=== PATIENT | male | born 1935 | race Caucasian/White ===

== ENCOUNTER → 2016-06-21 | Outpatient (REF) | payer MEDICARE, BC | LOC: M LAB REF 10:12 | PROVIDERS: ATTEND Urology | DX: Z12.5 Encounter for screening for malignant neoplasm of prostate (principal) ==

== ENCOUNTER → 2016-08-16 | Outpatient (REF) | payer MEDICARE, BC ==
[2016-08-16 09:50] LABS: ALBUMIN 3.7 GM/DL (3.2-5.2); ALBUMIN/GLOBULIN RATIO 1.09 (1.00-1.93); ALKALINE PHOSPHATASE 76 U/L (45-117); ALT/SGPT 24 U/L (12-78); ANION GAP 8 MEQ/L (8-16); AST/SGOT 21 U/L (15-37); BILIRUBIN,TOTAL 0.5 MG/DL (0.2-1.0); BLOOD UREA NITROGEN 15 MG/DL (7-18); CALCIUM LEVEL 8.7 MG/DL (8.8-10.2); CARBON DIOXIDE LEVEL 29 MEQ/L (21-32); CHLORIDE LEVEL 104 MEQ/L (98-107); CHOLESTEROL LEVEL 140 MG/DL (<200); CREATININE FOR GFR 1.21 MG/DL (0.70-1.30); FREE T4 1.33 NG/DL (0.76-1.46); GLOMERULAR FILTRATION RATE > 60.0 (>35); GLUCOSE, FASTING 115 MG/DL (83-110); POTASSIUM SERUM 4.5 MEQ/L (3.5-5.1); SODIUM LEVEL 141 MEQ/L (136-145); TOTAL PROTEIN 7.1 GM/DL (6.4-8.2); TRIGLYCERIDES LEVEL 76 MG/DL (<150)
== END ==
LOC: M SFHCCLAY 09:15
PROVIDERS: ATTEND Family Medicine
DX: E78.00 Pure hypercholesterolemia, unspecified (principal); I25.10 Atherosclerotic heart disease of native coronary artery without angina pectoris; E04.9 Nontoxic goiter, unspecified

== ENCOUNTER 2016-09-13 13:33 | Outpatient (RCR) | payer SELFPAY | END 2016-10-12 | LOC: EDSEX → EDBD → UNMERGE 13:33 → M CR 13:33 → MERGE 13:33 | PROVIDERS: ATTEND Family Medicine | DX: Z51.89 Encounter for other specified aftercare (principal); Z45.82 Encounter for adjustment or removal of myringotomy device (stent) (tube) ==

== ENCOUNTER → 2016-12-24 | Outpatient (REF) | payer MEDICARE, BC | LOC: M SFHCCLAY 09:00 | PROVIDERS: ATTEND Family Medicine | DX: R97.20 Elevated prostate specific antigen [PSA] (principal) | CPT/HCPCS: 36415; 84153; G0463 ==

== ENCOUNTER → 2017-02-28 | Outpatient (REF) | payer MEDICARE, BC | LOC: M LAB REF 09:55 | PROVIDERS: ATTEND Urology | DX: R97.20 Elevated prostate specific antigen [PSA] (principal) ==

== ENCOUNTER 2017-08-15 12:31 | Outpatient (RCR) | payer SELFPAY | END 2017-09-12 | LOC: M CR 12:31 | DX: Z51.89 Encounter for other specified aftercare (principal); Z98.61 Coronary angioplasty status ==

== ENCOUNTER → 2017-08-16 | Outpatient (REF) | payer MEDICARE, BC ==
[2017-08-16 12:50] LABS: ALBUMIN 3.7 GM/DL (3.2-5.2); ALBUMIN/GLOBULIN RATIO 1.12 (1.00-1.93); ALKALINE PHOSPHATASE 75 U/L (45-117); ALT/SGPT 22 U/L (12-78); ANION GAP 4 MEQ/L (8-16); AST/SGOT 18 U/L (7-37); BILIRUBIN,TOTAL 0.4 MG/DL (0.2-1.0); BLOOD UREA NITROGEN 16 MG/DL (7-18); CALCIUM LEVEL 8.8 MG/DL (8.8-10.2); CARBON DIOXIDE LEVEL 31 MEQ/L (21-32); CHLORIDE LEVEL 105 MEQ/L (98-107); CHOLESTEROL LEVEL 125 MG/DL (<200); CREATININE FOR GFR 1.19 MG/DL (0.70-1.30); FREE T4 1.28 NG/DL (0.76-1.46); GLOMERULAR FILTRATION RATE > 60.0 (>35); GLUCOSE, FASTING 174 MG/DL (70-100); HDL CHOLESTEROL 50 MG/DL (>40); LDL CHOLESTEROL 53.8 MG/DL (<100); NON-HDL-C 75 MG/DL; POTASSIUM SERUM 4.6 MEQ/L (3.5-5.1); SODIUM LEVEL 140 MEQ/L (136-145); TRIGLYCERIDES LEVEL 106 MG/DL (<150)
== END ==
LOC: M SFHCCLAY 09:34
DX: I25.10 Atherosclerotic heart disease of native coronary artery without angina pectoris (principal); E78.00 Pure hypercholesterolemia, unspecified; E04.9 Nontoxic goiter, unspecified
CPT/HCPCS: 84443

== ENCOUNTER → 2017-09-16 | Outpatient (REF) | payer MEDICARE, BC ==
[2017-09-16 18:28] LABS: PROSTATIC SPECIFIC AG MONITOR 4.06 NG/ML (< 4.0)
== END ==
LOC: M LABDRAWC 16:52
DX: R97.20 Elevated prostate specific antigen [PSA] (principal)
CPT/HCPCS: 84153

== ENCOUNTER → 2018-07-23 | Outpatient (REF) | payer MEDICARE, BC ==
[2018-07-23 12:15] LABS: BILIRUBIN,TOTAL 0.6 MG/DL (0.2-1.0); CALCIUM LEVEL 8.7 MG/DL (8.8-10.2); CHOLESTEROL RISK RATIO 2.339 (<5); CREATININE FOR GFR 1.25 MG/DL (0.70-1.30); FREE T4 1.32 NG/DL (0.76-1.46); GLOMERULAR FILTRATION RATE 58.7 (>35); POTASSIUM SERUM 4.4 MEQ/L (3.5-5.1); PROSTATIC SPECIFIC AG MONITOR 5.37 NG/ML (< 4.00); THYROID STIMULATING HORMONE 0.503 uIU/ML (0.358-3.740); TOTAL PROTEIN 7.4 GM/DL (6.4-8.2)
== END ==
LOC: M SFHCCLAY 08:45
PROVIDERS: ATTEND Family Medicine
DX: I25.10 Atherosclerotic heart disease of native coronary artery without angina pectoris (principal); C61 Malignant neoplasm of prostate; E78.00 Pure hypercholesterolemia, unspecified; E04.9 Nontoxic goiter, unspecified

== ENCOUNTER 2018-10-02 12:35 | Outpatient (RCR) | payer SELFPAY | END 2018-10-12 | LOC: M CR 12:35 | PROVIDERS: ATTEND Family Medicine | DX: Z98.61 Coronary angioplasty status (principal) ==

== ENCOUNTER → 2018-11-15 | Outpatient (CLI) | payer MEDICARE, BC ==
--- NOTE | 2018-11-27 13:08 | REP ---
Clinical: Sprain. Technique: AP, lateral, bilateral oblique views of the left first digit. Findings: Significant osteoarthritic degenerative changes are noted from the first carpometacarpal joint through the interphalangeal joint. No acute fracture or dislocation. No subcutaneous emphysema or radiodense foreign body. Impression: Significant osteoarthritic degenerative changes. Electronically Signed by Ashwin Eddy MD 11/15/2018 11:52 A
--- NOTE | 2018-11-27 13:08 | REP ---
Clinical: Trauma. Technique: AP, lateral, bilateral oblique views left hand . Findings: Arthritic degenerative changes are appreciated. No acute fracture or dislocation. No subcutaneous emphysema. No foreign body. Impression: Moderate to advanced diffuse arthritic changes primarily involving the wrist, first digit and first/second carpometacarpal joints. Electronically Signed by Ashwin Eddy MD 11/15/2018 11:51 A
== END ==
LOC: M WUC 11:35
PROVIDERS: ATTEND Nurse Practitioner Family
DX: M19.042 Primary osteoarthritis, left hand (principal); M19.032 Primary osteoarthritis, left wrist

== ENCOUNTER → 2018-11-18 | Outpatient (REF) | payer MEDICARE, BC | LOC: M LAB REF 16:17 | PROVIDERS: ATTEND Urology | DX: C61 Malignant neoplasm of prostate (principal); R97.20 Elevated prostate specific antigen [PSA] ==

== ENCOUNTER → 2019-01-08 | Outpatient (CLI) | payer MEDICARE, BC ==
[~2019-01-08] MED LIST: ASPI81TA85 PO; ATOR1TAB19 PO; COZA50TA PO; FINA5TAB2 PO; FLOM0.4C39 PO; LEVO75TA4 PO; OMEP-218 PO
--- NOTE | 2019-01-10 10:30 | RADONC ---
RADIATION ONCOLOGY CONSULTATION NOTE DATE OF SERVICE: 01/08/2019 CHART NUMBER: [id number] DIAGNOSIS: Prostate cancer. STAGE: Stage II B, [id number], [place] score 7 (3+4), grade group II, PSA 5.37. ECOG PERFORMANCE STATUS: 0. CONSULTATION NOTE: Mr. Flowers is a very pleasant 83-year-old white male with the diagnosis of a stage II B, [id number], Keisha score 7 (3+4), grade group II, PSA at 5.37 who is presenting to us today status post biopsy for consideration of definitive external beam radiation therapy with IMRT / IGRT. HISTORY OF PRESENT ILLNESS: The patient was in his usual state of health and apparently he was found on biopsy in January 2017 to have one small spot positive for a low grade prostatic adenocarcinoma. A PSA was done on 07/23/2018 and was found to be 5.37. Repeat needle biopsy done 12/03/2018 revealed multiple sites of Keisha score 7 (3+4) adenocarcinoma of the prostate involving both the left and the right sides. Of note, his PSA had gone up from 4 to 5.37 over a period of approximately one half years. He has initiated hormonal therapy and is now presenting for discussion of definitive external beam radiation therapy. PAST MEDICAL HISTORY: The patient's past medical history is positive for hypertension and a partial thyroidectomy in the early 1970s. He has had a heart stents placed. He has a history of hyperlipidemia and hypercholesterolemia. The patient has had cataract surgery in the past. ALLERGIES: The patient has NO KNOWN DRUG ALLERGIES. SOCIAL HISTORY: The patient does not smoke cigarettes nor abuse alcohol. FAMILY HISTORY: The patient's family history is positive for a mother with breast cancer. REVIEW OF SYSTEMS: The patient's review of systems is positive for some hearing loss but is otherwise noncontributory. Denies nausea, vomiting, fevers, chills, night sweats, diplopia, headaches, anxiety or depression, anorexia, weight loss, visual disturbances, chest pain, urinary or bowel difficulties, bone pain, or neurological problems. PHYSICAL EXAMINATION: The patient is a well-developed, well-nourished male in no acute distress. HEENT exam is normocephalic, atraumatic. Extraocular movements are intact. There is no palpable cervical, supraclavicular, infraclavicular, axillary, or inguinal lymphadenopathy present. Lungs are clear to auscultation and percussion. Heart has a regular rate and rhythm. Abdomen is benign with no hepatosplenomegaly, masses, or tenderness. Rectal examination reveals a normal anal sphincter tone. His prostate is smooth with no evidence of nodularity. Skeletal examination reveals no tenderness to pressure or percussion of the bony skeleton. Extremities reveal no clubbing, cyanosis, or edema. Neurologic exam is grossly intact, as is the remainder of the physical examination. MEDICAL NECESSITY: IMRT/IGRT is clinically indicated for the highly conformal dose planning required. The target volume is in close proximity to critical structures, such as the rectum, bladder, small bowel, and femoral heads. The volume of interest must be covered with narrow margins to adequately protect immediately adjacent structures. The plan requires interpretation of complex testing such as CT localization. As noted above, special planning (IMRT) and localizing (IGRT) is required and essential to maximally protect sensitive normal tissue structures which cannot be accomplished using conventional 3-dimensional planning. ASSESSMENT: I had a lengthy discussion with this patient to his . I do believe he is a candidate for external beam radiation therapy and I have so informed him. I have discussed with the patient in detail the potential benefits as well as possible acute and chronic sequelae of external beam radiation therapy. We discussed logistics of treatment planning, simulation, subsequent fractionated daily radiation treatments. We also discussed the need for placement of fiducial markers. In addition, I have discussed with the patient alternative treatments such as surgery. We discussed the benefits and drawbacks of each of the treatment modalities. Considering the patient's advanced age 83, we did discuss the possibilities of hormonal therapy alone and continued observation. This may hold him in check for a significant period of time. He is 83 years old. Considering the progress this tumor is made in just 2 years, I made clear that hormonal treatment is not definitive treatment. The patient has decided to undergo definitive external beam radiation therapy, and I am therefore referring him for placement of his fiducial markers. Radiation simulation and treatment planning will begin subsequent to that. Once again, we reviewed the possibilities of hormonal therapy alone versus radiation therapy versus surgery. Thank you for allowing us to participate in the care of this very pleasant gentleman. If I could be of any further assistance or provide any further information, please free to contact me at any time. As always, warm regards, Zoran Fatima MD cc: MD Ronny Latif MD
== END ==
LOC: M ONCR 13:46
PROVIDERS: ATTEND Radiology Radiation Oncology
DX: C61 Malignant neoplasm of prostate (principal)

== ENCOUNTER → 2019-01-22 | Outpatient (REF) | payer MEDICARE, BC ==
[2019-01-22 16:37] LABS: BLOOD UREA NITROGEN 17 MG/DL (7-18); CALCIUM LEVEL 9.2 MG/DL (8.8-10.2); CARBON DIOXIDE LEVEL 32 MEQ/L (21-32); CHLORIDE LEVEL 104 MEQ/L (98-107); CREATININE FOR GFR 1.21 MG/DL (0.70-1.30); GLOMERULAR FILTRATION RATE > 60.0 (>35); GLUCOSE, FASTING 95 MG/DL (70-100); POTASSIUM SERUM 4.4 MEQ/L (3.5-5.1); SODIUM LEVEL 139 MEQ/L (136-145)
== END ==
LOC: M SFHCCLAY 10:37
PROVIDERS: ATTEND Family Medicine
DX: I10 Essential (primary) hypertension (principal)

== ENCOUNTER → 2019-01-26 | Outpatient (CLI) | payer MEDICARE, BC ==
[~2019-01-26] MED LIST changes: +ISOVUE-370 76% 100ML VIAL (Q9967) As Ordered ONE
--- NOTE | 2019-01-26 16:50 | REP ---
CT brain: 01/26/2019. Indication: Headache. Comparison: None. Technique: Axial images of the brain were obtained from skull base to vertex with and without IV contrast. 75 ml of IV Isovue 370 were administered. Findings: No areas of pathologic enhancement are present. There is no intracranial acute hemorrhage or infarction. There is no mass effect or hydrocephalous. Age-related volume loss is present. There is scattered areas of hypo-attenuation throughout the subcortical and periventricular white matter most consistent with sequelae of chronic microangiopathic ischemic disease. The visualized paranasal sinuses and mastoid air cells are clear. Impression: No acute intracranial process or areas of pathologic gadolinium enhancement. Age related volume loss and support chronic microangiopathic ischemic disease. Electronically Signed by Jovi Kitchen DO 01/26/2019 05:05 P
--- NOTE | 2019-01-26 18:43 | REP ---
REASON FOR EXAM: Headaches. COMPARISON: None. There is echogenic material seen along the carotid arterial shay. Some areas are somewhat patchy and cast acoustic shadows consistent with calcific deposition. RIGHT LEFT CCA systolic 99.4 cm/s 97.3 cm/s CCA diastolic 9.32 cm/s 16.2 cm/s ICA systolic 74.1 cm/s 86.0 cm/s ICA diastolic 16.1 cm/s 22.7 cm/s ICA to CCA ratio 1.05 0.94 Spectral wave form analysis shows no significant spectral wave broadening. There is antegrade flow seen in both vertebral arteries. IMPRESSION: Both calcified and non-calcified plaque formatio causes less than 50% stenosis of the internal carotid artery bilaterally. This is according the NASCET consensus criteria. Electronically Signed by Jared Oh DO 01/27/2019 02:14 P
== END ==
LOC: M RAD 13:46
PROVIDERS: ATTEND Family Medicine
DX: R51 Headache (principal)
CPT/HCPCS: 70470; 93880; Q9967

== ENCOUNTER 2019-02-09 10:13 | Outpatient (RCR) | payer MEDICARE, BC ==
[~2019-02-09 10:13] MED LIST changes: -ISOVUE-370 76% 100ML VIAL (Q9967) As Ordered ONE
[2019-02-09 11:06] LABS: HEMATOCRIT 46.1 % (42.0-52.0); HEMOGLOBIN 15.1 g/dl (13.5-17.5); MEAN CORPUSCULAR HEMOGLOBIN 32.2 pg (27.0-33.0); MEAN CORPUSCULAR HGB CONC 32.8 g/dl (32.0-36.5); MEAN CORPUSCULAR VOLUME 98.3 fl (80.0-96.0); NEUTROPHILS % 56.7 % (36.0-66.0); RED BLOOD COUNT 4.69 10^6/uL (4.30-6.10); WHITE BLOOD COUNT 5.3 10^3/uL (4.0-10.0)
--- NOTE | 2019-02-09 12:02 | RADONC ---
RADIATION ONCOLOGY SIMULATION NOTE DATE: 02/09/2019 CHART NUMBER: [id number] SIMULATION NOTE: Mr. Flowers was taken to the CT scan for CT simulation of his prostate field. CT was accomplished without difficulty or discomfort. Radiation treatment planning is underway and radiation treatments will begin subsequently. An immobilization device was created and will be used throughout the course of treatment. It was created without difficulty or discomfort. I was physically present throughout the course of CT simulation.
== END 2019-02-12 ==
LOC: M ONCR 10:13
PROVIDERS: ATTEND Radiology Radiation Oncology
DX: C61 Malignant neoplasm of prostate (principal)

== ENCOUNTER 2019-03-11 08:54 | Outpatient (RCR) | payer MEDICARE, BC ==
--- NOTE | 2019-02-23 10:12 | RADONC ---
RADIATION ONCOLOGY PROGRESS NOTE DATE: 02/23/2019 CHART NUMBER: [id number] Mr. Flowers is presently at a dose of 1080 cGy to his prostate and is tolerating treatments quite well at this point with no complaints related to his radiation therapy. He is having no urinary or bowel difficulties and no bone pain. The patient's review of systems is noncontributory. He denies nausea, vomiting, fevers, chills, night sweats, diplopia, headaches, anxiety or depression, anorexia, weight loss, visual disturbances, chest pain, urinary or bowel difficulties, bone pain, or neurological problems. PHYSICAL EXAMINATION: The patient's skin is in good condition with no evidence of radiation change present. There is no moist or dry desquamation. The remainder of his physical exam remains unchanged. Mr. Flowers is tolerating treatments quite well and radiation will continue as scheduled.
--- NOTE | 2019-03-03 09:40 | RADONC ---
RADIATION ONCOLOGY PROGRESS NOTE DATE: 03/02/2019 CHART NUMBER: [id number] PROGRESS NOTE: Mr. Farrell is presently at a dose of 1980 cGy to his prostate and is tolerating treatments quite well at this point with no significant difficulties related to his radiation therapy. REVIEW OF SYSTEMS: He continues to have some chronic constipation and harder bowel movements. Other than that the patient has no complaints at this time. These are longstanding in nature. The remainder of his review of systems is noncontributory. Denies nausea, vomiting, fevers, chills, night sweats, diplopia, headaches, anxiety or depression, anorexia, weight loss, visual disturbances, chest pain, urinary or bowel difficulties, bone pain, or neurological problems. PHYSICAL EXAMINATION: The patient's skin is in good condition with no evidence of radiation change present. There is no moist or dry desquamation. The remainder of his physical exam remains unchanged. Mr. Flowers is tolerating treatments quite well and radiation will continue as scheduled.
--- NOTE | 2019-03-11 09:11 | RADONC ---
RADIATION ONCOLOGY PROGRESS NOTE DATE OF SERVICE: 03/09/2019 CHART NUMBER: [id number] Mr. Flowers is presently a dose of 2880 cGy to his prostate and is tolerating treatments quite well at this point with no complaints related to his radiation therapy. He is having no urinary or bowel difficulties and no bone pain. The patient's review of systems is noncontributory. Denies nausea, vomiting, fevers, chills, night sweats, diplopia, headaches, anxiety or depression, anorexia, weight loss, visual disturbances, chest pain, urinary or bowel difficulties, bone pain, or neurological problems. PHYSICAL EXAMINATION The patient's skin is in good condition with no evidence of moist or dry desquamation. The remainder of his physical exam remains unchanged. Mr. Flowers is tolerating treatments quite well and radiation will continue as scheduled.
== END 2019-03-14 ==
LOC: M ONCR 08:54
PROVIDERS: ATTEND Radiology Radiation Oncology
DX: C61 Malignant neoplasm of prostate (principal)

== ENCOUNTER → 2019-04-14 | Outpatient (RCR) | payer MEDICARE, BC ==
--- NOTE | 2019-03-17 10:31 | RADONC ---
RADIATION ONCOLOGY DATE OF SERVICE: 03/17/2019 CHART NUMBER: [id number] Mr. Flowers carries a diagnosis of prostate CA. So far he has received a dose of 3600 cGy in 28 fractions. He has no complaints. His nocturia is at 3-4 times. Denies dysuria, hematuria. No bowel problems. He is currently on Flomax. He tolerates treatment very well without any unusual side effects and treatment will continue as planned. MTDD
--- NOTE | 2019-03-23 13:14 | RADONC ---
RADIATION ONCOLOGY PROGRESS NOTE DATE: 03/23/2019 CHART NUMBER: [id number] Mr. Flowers is presently at a dose of 4320 cGy to his prostate and is tolerating treatments quite well at this point with no complaints related to his radiation therapy. He is having no urinary or bowel difficulties and no bone pain. The patient's review of systems is noncontributory. Denies nausea, vomiting, fevers, chills, night sweats, diplopia, headaches, anxiety or depression, anorexia, weight loss, visual disturbances, chest pain, urinary or bowel difficulties, bone pain, or neurological problems. PHYSICAL EXAMINATION The patient's skin is in good condition with no evidence of radiation change present. There is no moist or dry desquamation. The remainder of his physical exam remains unchanged. Mr. Flowers is tolerating treatments quite well and radiation will continue as scheduled.
--- NOTE | 2019-04-01 06:29 | RADONC ---
RADIATION ONCOLOGY PROGRESS NOTE DATE: 03/30/2019 CHART #: [id number] Mr. Flowers is presently at a dose of 5220 cGy to his prostate and seminal vesicles and is tolerating treatments quite well at this point with no complaints related to his radiation therapy. He is having no significant urinary or bowel difficulties other than some urinary frequency. REVIEW OF SYSTEMS: The patient's review of systems is noncontributory. Denies nausea, vomiting, fevers, chills, night sweats, diplopia, headaches, anxiety or depression, anorexia, weight loss, visual disturbances, chest pain, urinary or bowel difficulties, bone pain, or neurological problems. PHYSICAL EXAMINATION: The patient's skin is in good condition with no evidence of moist or dry desquamation. The remainder of his physical exam remains unchanged. Mr. Horan is tolerating treatments quite well and radiation will continue as scheduled.
--- NOTE | 2019-04-10 08:27 | RADONC ---
RADIATION ONCOLOGY PROGRESS NOTE DATE: 04/06/2019 CHART NUMBER: [id number] PROGRESS NOTE: Mr. Flowers with a diagnosis of adenocarcinoma of the prostate stage II B, T2c, N0, M0, is currently receiving local regional radiotherapy and his dose to date is 6120 cGy of an anticipated 7920 cGy. He is tolerating his therapy reasonably well and denies any nausea, vomiting, diarrhea, dysuria, hematuria or blood per rectum. His energy level is such that he is able to maintain most of his day-to-day activities without any alteration of his lifestyle. Skin irritation is denied. EXAMINATION FINDINGS: The skin within the irradiated volume shows neither erythema nor desquamation. Lymphatics: No palpable peripheral lymphadenopathy is appreciated. Lungs are clear. The remainder of the physical examination is unchanged. IMPRESSION: Tolerating therapy well. PLAN: Treatments to continue . MTDD
--- NOTE | 2019-04-13 13:24 | RADONC ---
RADIATION ONCOLOGY PROGRESS NOTE DATE: 04/13/2019 CHART NUMBER: [id number] Mr. Reymundo Flowers with a diagnosis of a malignant neoplasm of the prostate is currently receiving IMRT based local regional radiotherapy and he has achieved a dose of 6660 cGy of a proposed 7920 cGy. He is tolerating his radiotherapy reasonably well, denying any nausea, vomiting, diarrhea, dysuria, hematuria or blood per rectum. His energy level is such that he is able to maintain most of his day-to-day activities without any alteration of his lifestyle. Skin irritation is not a major issue for him. EXAMINATION FINDINGS: The skin within the irradiated volume shows neither erythema nor desquamation. Lymphatics: No palpable peripheral lymphadenopathy is appreciated. The remainder of the physical examination is unchanged. IMPRESSION: Tolerating therapy well. PLAN: Treatment is to continue.
== END ==
LOC: M ONCR 03-16 08:58
PROVIDERS: ATTEND Radiology Radiation Oncology
DX: C61 Malignant neoplasm of prostate (principal)

== ENCOUNTER 2019-04-23 08:56 | Outpatient (RCR) | payer MEDICARE, BC ==
--- NOTE | 2019-04-21 06:49 | RADONC ---
RADIATION ONCOLOGY PROGRESS NOTE DATE: 04/20/2019 CHART #: [id number] Mr. Flowers is presently at a dose of 7380 cGy to his prostate and is tolerating treatments quite well at this point with no significant difficulties related to his radiation therapy. He is having no urinary or bowel difficulties and no bone pain, except for urinary frequency. He reports he is urinating every hour. REVIEW OF SYSTEMS: The patient's review of systems is positive for urinary frequency, but is otherwise noncontributory. Denies nausea, vomiting, fevers, chills, night sweats, diplopia, headaches, anxiety or depression, anorexia, weight loss, visual disturbances, chest pain, urinary or bowel difficulties, bone pain, or neurological problems. PHYSICAL EXAMINATION: The patient's skin shows no evidence of moist or dry desquamation. The remainder of his physical exam remains unchanged. Mr. Flowers is tolerating treatments quite well and radiation will continue as scheduled.
--- NOTE | 2019-04-24 07:14 | RADONC ---
RADIATION ONCOLOGY TREATMENT SUMMARY DATE: 04/23/2019 CHART NUMBER: [id number] DIAGNOSIS: Prostate cancer. STAGE: IIB, [id number], Keisha score 7 (3-4), grade group 2, PSA 5.37. ECOG PERFORMANCE STATUS: 0 TREATMENT SUMMARY: Mr. Flowers is a very pleasant 83-year-old white male with the diagnosis of a stage IIB, [id number], Keisha score 7 (3-4), grade group 2, PSA 5.7 who presented to us for consideration of definitive external beam radiation therapy with IMRT/IGRT. We treated the patient to his prostate for a total dose of 7920 cGy delivered in 44 fractions of 180 cGy each over 65 elapsed days from 02/16/2019 through 04/23/2019. The patient's prostate was treated on a linear accelerator utilizing a 6 MV photon beam via IMRT/IGRT. We initially treated the prostate and seminal vesicles to a dose of 5400 cGy delivered in 30 fractions of 180 cGy each from 02/16/2019 through 03/31/2019. Following completion of 5400 cGy to the seminal vesicles and prostate, we delivered an additional 2520 cGy to the prostate itself from 04/01/2019 through 04/23/2019. This brought the prostate, once again, to a total dose of 7920 cGy. Mr. Flowers tolerated his treatments quite well and was able complete therapy as prescribed without interruption. I have scheduled the patient to see me again in 1 month for further followup. He will also continue to be followed by his other physicians as well. cc: MD Roland Latif MD Stephen Randall, MD
== END 2019-05-15 ==
LOC: M ONCR 08:56
PROVIDERS: ATTEND Radiology Radiation Oncology
DX: C61 Malignant neoplasm of prostate (principal)

== ENCOUNTER → 2019-05-20 | Outpatient (REF) | payer MEDICARE, BC ==
[2019-05-20 12:38] LABS: CREATININE FOR GFR 1.27 MG/DL (0.70-1.30); GLOMERULAR FILTRATION RATE 57.5 (>35); POTASSIUM SERUM 4.6 MEQ/L (3.5-5.1)
== END ==
LOC: M LABDRAWC 11:24
PROVIDERS: ATTEND Physician Assistant
DX: I10 Essential (primary) hypertension (principal)

== ENCOUNTER → 2019-05-20 | Outpatient (REF) | payer MEDICARE, BC | LOC: M LABDRAWC 11:23 | PROVIDERS: ATTEND Radiology Radiation Oncology | DX: C61 Malignant neoplasm of prostate (principal); I10 Essential (primary) hypertension ==

== ENCOUNTER 2019-05-27 14:00 | Outpatient (RCR) | payer SELFPAY | END 2019-06-13 | LOC: M CR 14:00 | PROVIDERS: ATTEND Family Medicine | DX: I25.10 Atherosclerotic heart disease of native coronary artery without angina pectoris (principal) ==

== ENCOUNTER → 2019-05-27 | Outpatient (CLI) | payer MEDICARE, BC ==
--- NOTE | 2019-05-28 10:45 | RADONC ---
DATE OF SERVICE: 05/27/2019 CHART NUMBER: [id number] DIAGNOSIS: Prostate cancer. STAGE: IIB, [id number], Keisha score 7 (3 + 4). PSA was 5.37. ECOG PERFORMANCE STATUS: 0. Mr. Flowers is a very pleasant 83-year-old gentleman who carries the diagnosis of stage IIB, [id number], [place] 7 (3 + 4), PSA 5.7 prostate cancer. He completed radiation therapy on April 23, 2019. INTERVAL HISTORY: He has no complaints. He had last PSA on May 20, 2019 was reported to be 1.16. REVIEW OF SYSTEMS: General/constitutional: He denies recent weight changes, fevers, or loss of appetite. Respiratory: He denies any cough. Cardiovascular: He denies palpitations, chest pain. Gastrointestinal: Denies nausea, vomiting, diarrhea, constipation, or rectal bleeding. Genitourinary: He complains of urinary frequency and nocturia three to four times. He is on Flomax. Musculoskeletal: He denies any bone pain, arthritis. PHYSICAL EXAMINATION: Patient is well developed and nourished and in not in apparent distress. HEENT: Normocephalic, atraumatic. There is no palpable lymphadenopathies in the neck/axilla bilaterally. LUNGS: Clear to auscultations. HEART: Regular rhythm and rate. ABDOMEN: Soft, nontender, nondistended without any palpable mass or organomegalies. SKELETAL EXAMINATION: There were no bony tenderness over the spine and rib cages. EXTREMITIES: No clubbing, cyanosis or edema. ASSESSMENT AND RECOMMENDATION: This 83-year-old gentleman carries the diagnosis of stage IIB prostate cancer [place] 7 (3 + 4) PSA 5.7. He completed external radiation therapy on April 23, 2019. Followup PSA on May 20, 2019 was 1.13. He was advised continuous followup care with physicians involved and he was also asked to return here in 3 months. He informed me his urologist is in [place], he wants to change urologist nearby. [facility] SYSTEM[facility]
== END ==
LOC: M ONCR 08:59
PROVIDERS: ATTEND Radiology Radiation Oncology
DX: C61 Malignant neoplasm of prostate (principal)

== ENCOUNTER 2019-06-18 14:32 | Outpatient (RCR) | payer SELFPAY | END 2019-07-14 | LOC: M CR 14:32 | PROVIDERS: ATTEND Family Medicine | DX: Z51.89 Encounter for other specified aftercare (principal); Z98.61 Coronary angioplasty status ==

== ENCOUNTER → 2019-08-17 | Outpatient (CLI) | payer MEDICARE, BC ==
[~2019-08-17] MED LIST changes: -ASPI81TA85 PO; +ASPI81TA86 PO
--- NOTE | 2019-08-17 15:51 | REP ---
LUMBOSACRAL SPINE, AP AND LATERAL: Three AP and lateral views of the lumbosacral spine are performed. There is no compression fracture or malalignment with normal lumbar lordosis. There partial sacralization of L5 with hypoplastic 12th ribs noted. There is mild to moderate diffuse spurring. There is mild disc space narrowing and subchondral sclerosis at all levels. There is sclerosis and spurring at the posterior facet joints especially L3-4 and L4-5 and L5-S1. Posterior elements are intact. IMPRESSION: Partial sacralization of L5. Diffuse degenerative changes as above with no compression fracture. Electronically Signed by Zoran Jolly MD 08/17/2019 04:03 P
== END ==
LOC: M CLY 15:05
PROVIDERS: ATTEND Family Medicine
DX: M51.37 Other intervertebral disc degeneration, lumbosacral region (principal); M54.5 Low back pain
CPT/HCPCS: 72100; G0463

== ENCOUNTER → 2019-08-26 | Outpatient (CLI) | payer MEDICARE, BC ==
[~2019-08-26] MED LIST changes: +ASPI81TA85 PO; -ASPI81TA86 PO
--- NOTE | 2019-08-30 14:16 | RADONC ---
RADIATION ONCOLOGY FOLLOWUP NOTE DATE: 08/26/2019 CHART NUMBER: [id number] DIAGNOSIS: Prostate cancer. STAGE: II B, T2c, N0, M0, Eugene score 7 (3-4), grade group II, PSA 5.37. ECOG PERFORMANCE STATUS: 0 FOLLOWUP NOTE: Mr. Flowers is a very pleasant 83-year-old white male with the diagnosis of a stage II B, T2c, N0, M0, moderate to poorly differentiated Eugene score 7 (3-4) adenocarcinoma of the prostate with an initial PSA level of 5.37 who is presenting to us today for routine followup visit 4 months post completion of external beam radiation therapy. The patient presents today reporting that he is doing quite well with no complaints at this time related to his radiation therapy or disease. He has no significant urinary or bowel difficulties and no bone pain. REVIEW OF SYSTEMS: The patient's review of systems is noncontributory. Denies nausea, vomiting, fevers, chills, night sweats, diplopia, headaches, anxiety or depression, anorexia, weight loss, visual disturbances, chest pain, urinary or bowel difficulties, bone pain, or neurological problems. PHYSICAL EXAMINATION: Physical examination was deferred as per COVID-19 precautions. ASSESSMENT: The patient is clinically ELISEO at this time and will be seen by us again in 6 months for further followup. He will also continue to be followed by his other physicians as well. A PSA level was ordered for today. His previous PSA done on 05/20/2019 was 1.16. cc: MD Ronny Miller MD Stephen Randall, MD
== END ==
LOC: M ONCR 08:47
PROVIDERS: ATTEND Radiology Radiation Oncology
DX: C61 Malignant neoplasm of prostate (principal)

== ENCOUNTER → 2019-11-19 | Outpatient (REF) | payer MEDICARE, BC ==
[~2019-11-19] MED LIST changes: -ASPI81TA85 PO; +ASPI81TA86 PO
[2019-12-18 23:09] LABS: HEMOGLOBIN 14.2 g/dl (13.5-17.5); MEAN CORPUSCULAR HEMOGLOBIN 35.3 pg (27.0-33.0); MEAN CORPUSCULAR HGB CONC 34.6 g/dl (32.0-36.5); PLATELET COUNT, AUTOMATED 153 10^3/uL (150-450); RED BLOOD COUNT 4.02 10^6/uL (4.30-6.10); WHITE BLOOD COUNT 4.2 10^3/uL (4.0-10.0)
[2020-01-03 12:01] LABS: ALBUMIN 3.7 GM/DL (3.2-5.2); BILIRUBIN,TOTAL 0.5 MG/DL (0.2-1.0); CALCIUM LEVEL 9.2 MG/DL (8.8-10.2); CHOLESTEROL RISK RATIO 2.826 (<5); CREATININE FOR GFR 1.27 MG/DL (0.70-1.30); FREE T4 1.12 NG/DL (0.76-1.46); GLOMERULAR FILTRATION RATE 57.4 (>35); POTASSIUM SERUM 4.1 MEQ/L (3.5-5.1); PROSTATIC SPECIFIC AG MONITOR 0.21 NG/ML (< 4.00); THYROID STIMULATING HORMONE 0.672 uIU/ML (0.358-3.740); TOTAL PROTEIN 6.8 GM/DL (6.4-8.2)
== END ==
LOC: M SFHCCLAY 16:33
PROVIDERS: ATTEND Family Medicine
DX: I25.10 Atherosclerotic heart disease of native coronary artery without angina pectoris (principal); E78.00 Pure hypercholesterolemia, unspecified; E04.9 Nontoxic goiter, unspecified; C61 Malignant neoplasm of prostate
CPT/HCPCS: 36415; 80053; 80061; 84153; 84439; 84443; 85027; G0463

== ENCOUNTER 2020-02-03 13:33 | Emergency (ER) | payer MEDICARE, BC ==
[~2020-02-03] VITALS: Ht 180.3 cm; Wt 79.5 kg
[2020-02-03] MEDS ORDERED: NS 1,000 ML IV SCH (13:49)
[2020-02-03] MEDS ORDERED: ASPIRIN 81 MG CHEW TABLET PO ONE (14:00)
[2020-02-03] MEDS: NITROGLYCERIN 0.4 MG SUBL TABLET SL PRN ×3 (14:02→14:27)
[2020-02-03 14:03] LABS: BASO % 0.6 % (0.0-1.0); EOS # 0.1 10^3/uL (0.0-0.5); EOS % 1.8 % (0.0-3.0); HEMATOCRIT 44.5 % (42.0-52.0); HEMOGLOBIN 14.7 g/dl (13.5-17.5); LYMPH # 0.6 10^3/uL (1.5-5.0); LYMPH % 12.1 % (24.0-44.0); MEAN CORPUSCULAR VOLUME 96.9 fl (80.0-96.0); MONO # 0.5 10^3/uL (0.0-0.8); MONO % 9.6 % (0.0-5.0); NEUTROPHILS # 3.9 10^3/uL (1.5-8.5); NEUTROPHILS % 75.5 % (36.0-66.0); PLATELET COUNT, AUTOMATED 156 10^3/uL (150-450); RED BLOOD COUNT 4.59 10^6/uL (4.30-6.10); WHITE BLOOD COUNT 5.1 10^3/uL (4.0-10.0)
[2020-02-03 14:15] LABS: INR 0.93; PROTHROMBIN TIME 12.7 SECONDS (12.5-14.3)
--- NOTE | 2020-02-03 14:17 | REPVR ---
PROCEDURE INFORMATION: Exam: XR Chest, 1 View Exam date and time: 02/03/2020 1:53 PM Age: 84 years old Clinical indication: Chest pain TECHNIQUE: Imaging protocol: XR of the chest Views: 1 view. COMPARISON: CR Abdomen,Flat Upright,PA CHEST 04/23/2013 6:33 PM FINDINGS: Lungs: Unremarkable. No consolidation. Pleural space: Unremarkable. No pleural effusion. No pneumothorax. Heart/Mediastinum: Unremarkable. No cardiomegaly. Bones/joints: Unremarkable. IMPRESSION: No acute findings. Electronically signed by: Jacquelin Landeros On 02/03/2020 14:17:47 PM
[2020-02-03 14:27] VITALS: BP 102/56
[2020-02-03 14:36] LABS: ALBUMIN 4.1 GM/DL (3.2-5.2); ALT/SGPT 23 U/L (12-78); BILIRUBIN,DIRECT 0.2 MG/DL (0.0-0.2); BILIRUBIN,TOTAL 0.6 MG/DL (0.2-1.0); CK-MB VALUE MASS 2.1 NG/ML (<3.6); CPK CREATINE PHOSPHOKINASE 100 U/L (39-308); LIPASE 113 U/L (73-393); TOTAL PROTEIN 7.7 GM/DL (6.4-8.2); TROPONIN I < 0.02 NG/ML (< 0.10)
--- NOTE | 2020-02-03 16:35 | ECGEPIP ---
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
[2020-02-03 18:49] LABS: CK-MB VALUE MASS 1.8 NG/ML (<3.6); CPK CREATINE PHOSPHOKINASE 83 U/L (39-308); MB/CK RELATIVE INDEX 2.17 (< OR =4); TROPONIN I < 0.02 NG/ML (< 0.10)
[2020-02-03 19:30] VITALS: BP 148/77
--- NOTE | 2020-02-03 23:00 | ECGEPIP ---
[facility] - ED Test Date: 2020-02-03 Pat Name: CESAR PINEDA Department: Room: - Gender: Male Diet Kitchen Cook: ESPERANZA : 1935 Requested By: LE COX Order Number: [id number] Reading MD: Too Reveles Measurements Intervals [place] Rate: 73 P: 74 [place]: 215 QRS: 98 QRSD: 146 T: 30 QT: 400 QTc: 442 Interpretive Statements SINUS RHYTHM WITH SINUS ARRHYTHMIA WITH FIRST DEGREE AV BLOCK RIGHT BUNDLE BRANCH BLOCK Rate decreased from tracing done at 13:48 on the same date Electronically Signed on 02-03-2020 23:00:30 EDT by Too Reveles
== END 2020-02-03 20:00 | disposition home or self-care (01) ==
LOC: M ED 13:33
DX: R07.89 Other chest pain (principal); I44.0 Atrioventricular block, first degree; I45.10 Unspecified right bundle-branch block; R00.0 Tachycardia, unspecified; I11.9 Hypertensive heart disease without heart failure; E78.5 Hyperlipidemia, unspecified; Z95.5 Presence of coronary angioplasty implant and graft; Z79.82 Long term (current) use of aspirin; Z79.899 Other long term (current) drug therapy

== ENCOUNTER → 2020-02-26 | Outpatient (CLI) | payer MEDICARE, BC ==
--- NOTE | 2020-02-26 09:04 | REP ---
INDICATION: ABDOMINAL ANEURSYM. COMPARISON: Comparison aortic sonography November 02, 2011. Comparison is made with CT imaging from July 01, 2008. Both of these prior study showed a small saccular area of dilation in the mid aorta, 2.3 cm in greatest anteroposterior dimension in 2008 and 2.6 cm in greatest AP dimension in 2011 by ultrasound.. TECHNIQUE: Transabdominal retroperitoneal scanning. FINDINGS: Scanning through the retroperitoneum demonstrates that the abdominal aorta is normal in caliber at the level of the diaphragmatic hiatus measuring 2.1 x 1.7 cm in AP by transverse dimension respectively. The abdominal aorta is obscured at the level of the main renal artery origins. Mid aorta measures 2.6 cm AP x 2.3 cm right to left. A focal saccular area of aortic bulge is seen 2.0 x 1.6 by 1.0 cm along the anterior wall of the aorta. Inclusive of this, the anterior-dimension of the aorta is 2.6 cm.. The distal aorta tapers to 2.3 x 2.2 cm AP by transverse dimension. The right and left common iliac arteries are normal measuring 1.2 and 1.2 cm in AP dimension respectively. No aneurysm is seen. No periaortic disease is observed. IMPRESSION: Focal saccular bulging anterior wall of the abdominal aorta again noted unchanged from prior studies. This segment of the aorta measures 2.6 cm in greatest anterior to posterior dimension.. <Electronically signed by Navdeep Pollard > 02/26/20 0901
== END ==
LOC: M RAD 06:52
PROVIDERS: ATTEND Family Medicine
DX: I71.4 Abdominal aortic aneurysm, without rupture (principal)

== ENCOUNTER → 2020-03-14 | Outpatient (CLI) | payer MEDICARE, BC | LOC: M LAB 09:36 | PROVIDERS: ATTEND Urology | DX: C61 Malignant neoplasm of prostate (principal) ==

== ENCOUNTER → 2020-07-21 | Outpatient (REF) | payer MEDICARE, BC ==
[2020-07-22 11:09] LABS: BASO % 0.6 % (0.0-1.0); EOS # 0.1 10^3/uL (0.0-0.5); EOS % 2.4 % (0.0-3.0); HEMATOCRIT 39.9 % (42.0-52.0); HEMOGLOBIN 14.3 g/dl (13.5-17.5); LYMPH # 0.8 10^3/uL (1.5-5.0); LYMPH % 15.6 % (24.0-44.0); MEAN CORPUSCULAR HGB CONC 35.8 g/dl (32.0-36.5); MEAN CORPUSCULAR VOLUME 100.5 fl (80.0-96.0); MONO # 0.7 10^3/uL (0.0-0.8); MONO % 14.2 % (2.0-8.0); NEUTROPHILS # 3.4 10^3/uL (1.5-8.5); PLATELET COUNT, AUTOMATED 155 10^3/uL (150-450); RED BLOOD COUNT 3.97 10^6/uL (4.30-6.10)
[2020-07-22 11:46] LABS: BLOOD UREA NITROGEN 17 MG/DL (7-18); CALCIUM LEVEL 9.7 MG/DL (8.8-10.2); CARBON DIOXIDE LEVEL 32 MEQ/L (21-32); CHLORIDE LEVEL 103 MEQ/L (98-107); CPK CREATINE PHOSPHOKINASE 107 U/L (39-308); CREATININE FOR GFR 1.27 MG/DL (0.70-1.30); GLOMERULAR FILTRATION RATE 57.4 (>35); GLUCOSE, FASTING 100 MG/DL (70-100); SODIUM LEVEL 138 MEQ/L (136-145); TROPONIN I < 0.02 NG/ML (< 0.10)
[2020-07-22 11:49] LABS: FREE T4 1.19 NG/DL (0.76-1.46); THYROID STIMULATING HORMONE 0.467 uIU/ML (0.358-3.740)
== END ==
LOC: M SFHCCLAY 13:05
PROVIDERS: ATTEND Family Medicine
DX: R07.9 Chest pain, unspecified (principal); E03.9 Hypothyroidism, unspecified
CPT/HCPCS: 80048; 82550; 84439; 84443; 84484; 85025; 93005; G0463

== ENCOUNTER → 2020-09-13 | Outpatient (REF) | payer MEDICARE, BC | LOC: M SFHCCLAY 14:05 | PROVIDERS: ATTEND Urology | DX: C61 Malignant neoplasm of prostate (principal) ==

== ENCOUNTER → 2020-12-07 | Outpatient (CLI) | payer MEDICARE, BC ==
[2020-12-07 11:16] LABS: BLOOD UREA NITROGEN 15 MG/DL (7-18); GLOMERULAR FILTRATION RATE > 60.0 (>35)
== END ==
LOC: M LAB 08:58
PROVIDERS: ATTEND Surgery
DX: Z01.818 Encounter for other preprocedural examination (principal)

== ENCOUNTER → 2020-12-09 | Outpatient (CLI) | payer MEDICARE, BC ==
[~2020-12-09] MED LIST changes: +GASTROGRAFIN SOLUTION 30ML (Q9963) As Ordered ONE; +ISOVUE-370 76% 100ML VIAL As Ordered ONE
--- NOTE | 2020-12-09 09:41 | REP ---
INDICATION: RLQ PAIN. COMPARISON: 07/01/2008 TECHNIQUE: Axial contrast-enhanced images from the lung bases to the pubic symphysis using oral and 100 cc Isovue 370 intravenous contrast material. Precontrast and delayed images of the abdomen obtained along with coronal and sagittal reformations.. This CT examination was performed using the following dose reduction techniques: Automated exposure control, adjustment of mA and/or kv according to the patient's size, and the use of iterative reconstruction technique. FINDINGS: Liver, spleen, gallbladder, bilateral adrenal glands and left kidney are normal. Right kidney includes multiple nonobstructing calculi measuring up to approximately 10 mm. No perinephric stranding, hydroureteronephrosis or obstructing ureteral calculi noted. Evaluation of the enteric system cannot exclude a mild pancolitis. There is no bowel obstruction. Few scattered sigmoid diverticula noted without acute diverticulitis.. Pelvis demonstrates large heterogeneous prostate gland with mass effect on the base of the bladder along with surgical clips to suggest prior prostate intervention. Small fat containing inguinal hernias suggested. No ascites. No free air. No intraperitoneal or retroperitoneal adenopathy. Abdominal aorta demonstrates atherosclerotic changes and focal mid aortic dilatation to 3.0 cm with partially thrombosed lumen. Musculoskeletal structures are intact and without acute osseous abnormality. IMPRESSION: 1. Possible mild pancolitis requires correlation. 2. 10 mm nonobstructing right renal calculus. 3. Few scattered colonic diverticula without acute diverticulitis. 4. Prostatomegaly with mass effect on the base of the bladder. 5. 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 <Electronically signed by Ashwin Eddy > 12/09/20 0903
== END ==
LOC: M RAD 07:30
PROVIDERS: ATTEND Surgery
DX: N20.0 Calculus of kidney (principal); R10.31 Right lower quadrant pain; N40.0 Benign prostatic hyperplasia without lower urinary tract symptoms
CPT/HCPCS: 74178; Q9963; Q9967

== ENCOUNTER → 2021-01-12 | Outpatient (CLI) | payer MEDICARE, BC ==
[~2021-01-12] MED LIST changes: -GASTROGRAFIN SOLUTION 30ML (Q9963) As Ordered ONE; -ISOVUE-370 76% 100ML VIAL As Ordered ONE
--- NOTE | 2021-01-12 11:35 | REP ---
INDICATION: M54.5, RIGHT-SIDED LOW BACK PAIN. COMPARISON: None TECHNIQUE: AP and frog-lateral views FINDINGS: The hip joint space is symmetric and relatively well maintained. Slight asymmetric narrowing is identified. There is no fracture, dislocation, or buttressing. IMPRESSION: Slight degenerative changes as described above. <Electronically signed by Jared Oh > 01/12/21 0925
--- NOTE | 2021-01-12 11:37 | REP ---
INDICATION: M54.5, RIGHT-SIDED LOW BACK PAIN. COMPARISON: 08/17/2019 a limited exam TECHNIQUE: Five views FINDINGS: There is marginal osteophytosis at every level bilaterally status quo. Vertebral body height and alignment is unchanged. There is disc space narrowing at every level status quo. Degenerative facet joint changes are again seen particularly at L3-4 through L5-S1 status quo. IMPRESSION: Stable appearing chronic changes. <Electronically signed by Jared Oh > 01/12/21 4754
== END ==
LOC: M CLY 10:38
PROVIDERS: ATTEND Physician Assistant
DX: M51.36 Other intervertebral disc degeneration, lumbar region (principal); M51.37 Other intervertebral disc degeneration, lumbosacral region

== ENCOUNTER → 2021-01-25 | Outpatient (CLI) | payer MEDICARE, BC ==
[~2021-01-25] MED LIST changes: +E-Z-GAS II EFFERVESCENT PACKET (SODIUM BICARB./CITRIC ACID/SIMETHICONE) As Ordered ONE; +E-Z-HD 98% w/w 340GM SUSP BTL As Ordered ONE; +E-Z-PAQUE 96% w/w SUSP 176GM BTL As Ordered ONE
--- NOTE | 2021-01-25 18:21 | REP ---
INDICATION: GERD. COMPARISON: None TECHNIQUE: This procedure was performed by Melissa Patel [facility], under the direct supervision of Dr. Jolly. Images were reviewed with Dr. Jolly prior to dictation. Liquid barium and gas producing crystals were given in the erect position, as well as liquid barium in the prone oblique position in order to perform a double contrast esophagram examination. FINDINGS: A single view PA chest x-ray is submitted as a cloth burler film. The superior mediastinal structures are midline. The heart size is within normal limits. The lungs are clear. The oral and pharyngeal stages of deglutition were unremarkable. Esophageal transport is prompt and efficient and there is no evidence of esophagitis, stricture, or mucosal ring. There is evidence of a small hiatal hernia. No gastroesophageal reflux was visualized during the exam. IMPRESSION: Small hiatal hernia. 0.2 minutes of fluoroscopy time was utilized for this procedure. Some fluoroscopic images are performed with last image hold technology. These images require no additional radiation. <Electronically signed by Melissa Patel > 01/25/21 1650 <Electronically signed by Zoran Jolly > 01/25/21 1816
== END ==
LOC: M RAD 08:39
PROVIDERS: ATTEND Otolaryngology
DX: K44.9 Diaphragmatic hernia without obstruction or gangrene (principal); K21.9 Gastro-esophageal reflux disease without esophagitis

== ENCOUNTER → 2021-02-18 | Outpatient (CLI) | payer MEDICARE, BC ==
[~2021-02-18] MED LIST changes: +ASPI81CH33 PO; -E-Z-GAS II EFFERVESCENT PACKET (SODIUM BICARB./CITRIC ACID/SIMETHICONE) As Ordered ONE; -E-Z-HD 98% w/w 340GM SUSP BTL As Ordered ONE; -E-Z-PAQUE 96% w/w SUSP 176GM BTL As Ordered ONE; +LOSA50TA88 PO; +NITR4TASL SL; +TAMS1CAP17 PO
== END ==
LOC: M LABSMTC 10:10
PROVIDERS: ATTEND Anesthesiology
DX: Z01.812 Encounter for preprocedural laboratory examination (principal); Z20.822 Contact with and (suspected) exposure to COVID-19

== ENCOUNTER 2021-02-23 09:29 | Day surgery (SDC) | payer MEDICARE, BC ==
[~2021-02-23] VITALS: Ht 180.3 cm; Wt 76.6 kg
[~2021-02-23 09:29] MED LIST changes: +NS 1,000 ML IV ONE
--- OUTSIDE RECORDS SUMMARY | 2021-02-23 09:33 | CCD | Continuity of Care Document ---
Author Author Reymundo ABREU DO Organization Unknown Address [address] [place] [address] Phone [phone] Problems Active Problems Provider Date Essential hypertension Alfredo Abreu DO Onset: 2020 Hypothyroidism Alfredo Abreu DO Onset: 1 Adult health examination Alfredo Abreu DO Onset: 10/2020 Constipation Alfredo Abreu DO Onset: 1 Allergic rhinitis Alfredo Abreu DO Onset: 1 Coronary arteriosclerosis Alfredo Abreu DO Onset: 10/2020 Social History Type Date Description Comments Sex Unknown ETOH Use Occasionally consumes alcohol Tobacco Use Start: Unknown Patient has never smoked Allergies and adverse reactions Description No Known Drug Allergies Medications Active Medications SIG Qnty Indications Ordering Provide r Date Atorvastatin Calcium 10mg Tablets 1 by mouth every day 90tabs Alfredo Abreu DO 01/21/20 21 Cozaar 50mg Tablets 1 by mouth every day 90tabs Alfredo Abreu DO 01/19/2021 Levothyroxine Sodium 75mcg Tablets 1 by mouth every day 90tabs Alfredo Abreu DO 01/20/20 21 Docusate Sodium 100mg Capsules 1 by mouth twice a day 60caps Alfredo Abreu DO 01/20/20 21 Ipratropium [place] 0.06% Solution 2 sprays in each nostril 2-3 times a day as needed for running nose 45ml Alfredo Abreu DO 01/19/[address] 1 by mouth every day 90caps Alfredo Abreu DO 01/20/20 [address] 1 by mouth every day Unknown Flomax 0.4mg Capsules 1 by mouth every day Unknown Finasteride 5mg Tablets 1 by mouth every day Unknown Immunizations Description No Information Available Vital Signs Date Vital Result Comment 01/19/2021 7:52am BP Systolic 124 mmHg BP Diastolic 70 mmHg Heart Rate 60 /min Height 70 inches 5'10" Weight 174.00 lb BMI (Body Mass Index) 25.0 kg/m2 Results Test Acquired Date Facility Test Result H/L Range Note Complete Blood Count 01/19/2021 [facility] Type[employer] Functional Tester: Dr Eleazar [place] [address] [phone] WBC 4.3 x10*3/UL 4.1 - 10.9 RBC 4.49 x10*6/UL 4.20 - 6.30 Hemoglobin 14.4 g/dL 12.0 - 18.0 Hematocrit 42.5 % 37.0 - 51.0 MCV 94.6 fL 80.0 - 97.0 MCH 32.0 pg 26.0 - 32.0 MCHC 33.8 g/dL 31.0 - 38.0 RDW 14.0 % High 11.6 - 13.7 PLT 172 x10*3/UL 140 - 440 MPV 9.0 FL 7.8 - 11.0 Lymph % 16.1 % 10.0 - 58.5 Mid % 4.7 % 1.7 - 9.3 Neut % 79.2 % 37.0 - 92.0 Lymph # 0.6 x10*3/UL 0.6 - 4.1 Mid # 0.3 x10*3/UL 0.1 - 0.6 Neut # 3.4 x10*3/UL 2.0 - 7.8 Comprehensive Chem Profile 01/19/2021 [facility] [employer] Functional Tester: Dr Eleazar [place] [address] [phone] Glucose 102 mg/dL High 74 - 99 1 BUN 17 mg/dL 7 - 18 Creatinine 1.4 mg/dL High 0.6 - 1.3 Sodium 142 mEq/L 136 - 145 Potassium 4.2 mEq/L 3.5 - 5.1 Chloride 104 mEq/L 98 - 107 Carbon Dioxide 33 mEq/L High 21 - 32 Calcium 9.6 mg/dL 8.5 - 10.1 Alk. Phosphatase 77 mg/dL 46 - 116 Total Bilirubin 0.6 mg/dL 0.2 - 1.0 Ast (Sgot) 23 U/L 15 - 37 Alt (SGPT) 24 U/L 12 - 78 Albumin 4.1 g/dL 3.4 - 5.0 Total Protein 7.4 g/dL 6.4 - 8.2 A/G Ratio 1.24 CALC 1.00 - 1.90 GFR 48 mL/min Low >60 GFR 58 mL/min Low >60 2 Lipid Profile 01/19/2021 [facility] [employer] Functional Tester: Dr Eleazar [place] [address] [phone] Cholesterol 133 mg/dL 131 - 200 Triglycerides 57 mg/dL 30 - 150 HDL Cholesterol 61 mg/dL High 35 - 60 LDL (Calculated) 61 CALC 50 - 159 Laboratory test finding 01/19/2021 [facility] [employer] Functional Tester: Dr Eleazar [place] [address] [phone] PSA <0.13 ng/mL <4.00 3 Laboratory test finding 01/19/2021 [facility] [employer] Functional Tester: Dr [place]azar [place] [id number] [phone] Thyroid Stimulating Hormone 0.38 uIU/mL 0.3 6 - 3.74 1 100-125 mg/dL PRE-DIABET ES/FASTING >126 mg/dL DIABETES/FASTING 2 CHRONIC KIDNEY DISEASE STAGI NG PER NKF STAGE I & II GFR >= 60 NORMAL TO MILDLY DECREASED STAGE III GFR 30-59 MODERATELY DECREASED STAGE IV GFR 15-29 SEVERELY DECREASED STAGE V GFR <15 VERY LITTLE GFR LEFT ESRD GFR <15 ON FUSION JUNCTURE GRINDER 3 This assay was performed on the Siemens Dimension EXL using the B- Galactosidase/CPRG methodology and should not be compared interchangeably with other methods. The PSA should not be used alone as a screening test for the presence or absence of malignant disease. Procedures Date Code Description Status 01/19/2021 18219 Office/Outpatient New Moderate M DM 45-59 Minutes Completed 01/19/2021 55034 EKG/Interpretation & Report Comp leted Medical Devices Description No Information Available Encounters Type Date Location Provider Dx Diagnosis Office Visit 01/19/2021 8:00a [facility] Chr dong Abreu, DO I25.10 Athscl heart disease of [place] coronary artery w/o ang pctrs I10 Essential (primary) hyperten nikunj E03.9 Hypothyroidism, unspecified Z85.46 Personal history of malignan t neoplasm of prostate R35.1 Nocturia N40.1 Benign prostatic hyperplasia with lower urinary tract symp K59.00 Constipation, unspecified J30.9 Allergic rhinitis, unspecifi ed M54.50 Low back pain, unspecified L24.9 Irritant contact dermatitis, unspecified cause Z13.89 Encounter for screening for other disorder Assessments Date Code Description Provider 01/19/2021 I25.10 Atherosclerotic hear t disease of [place] coronary artery without angina pectoris Alfredo Abreu, DO 01/19/2021 I10 Essential (primary) hypertension Alfredo Abreu, DO 01/19/2021 E03.9 Hypothyroidism, unspecified Chreva stopher Abreu, DO 01/19/2021 Z85.46 Personal history of malignant ne oplasm of prostate Alfredo Abreu, DO 01/19/2021 R35.1 Nocturia Alfredo Soria ogg, DO 01/19/2021 N40.1 Benign prostatic hyperplasia wit h lower urinary tract symptoms Alfredo Abreu, DO 01/19/2021 K59.00 Constipation, unspecified Jordan Abreu, DO 01/19/2021 J30.9 Allergic rhinitis, unspecified C cabrera Abreu, DO 01/19/2021 M54.50 Low back pain, unspecified Jona Abreu, DO 01/19/2021 L24.9 Irritant contact dermatitis, uns pecified cause Alfredo Abreu, DO 01/19/2021 Z13.89 Encounter for screening for othe r disorder Alfredo Abreu DO Plan of Treatment Future Appointment(s):* 04/20/2021 8:40 am - Alfredo Abreu DO at [facility] 01/19/2021 - Alfredo Abreu DO* I25.10 Atherosclerotic heart disease of [place] coronary artery without angina pectoris * I10 Essential (primary) hypertension* Comments:* Well controlled and at target on current regimen. He is tolerating this well. * E03.9 Hypothyroidism, unspecified* Comments:* Reassess TSH today and adjust dosing as needed. * Z85.46 Personal history of malignant neoplasm of prostate * R35.1 Nocturia * N40.1 Benign prostatic hyperplasia with lower urinary tract symptoms* Comments:* Symptoms are stable on flomax and finesteride, but there is room for better control. He is tolerating these medications well. Discussed that there all multiple potential factors that could be causing his nocturia including drinking at night and JOSE ARMANDO. JOSE ARMANDO likely secondary to chronic venous insufficiency and educated on elevating legs and using compression stockings. Also discussed that we could increase flomax dosing. * K59.00 Constipation, unspecified* Comments:* Well controlled. * J30.9 Allergic rhinitis, unspecified* Comments:* He complains of ongoing post- nasal drip, which he is frustrated by. He has seen 2 ENT .specialists. Emphasized intranasal medications, OTC anti-histamines. * M54.50 Low back pain, unspecified* Comments:* Exam was reassuring, however given history of Prostate Ca I do think imaging is warranted especially as he has no history of back pain. Requested that he have xrays sent to me and pending findings may need to consider more advanced imaging. * L24.9 Irritant contact dermatitis, unspecified cause* Comments:* Suspect that groin irritation is related to friction and asked that he keep area dry and clean. * Z13.89 Encounter for screening for other disorder * All * New Medication:* Cozaar 50 mg - 1 by mouth every day * Levothyroxine Sodium 75 mcg - 1 by mouth every day * Docusate Sodium 100 mg - 1 by mouth twice a day * Ipratropium [place] 0.06 % - 2 sprays in each nostril 2-3 times a day as needed for running nose * Omeprazole 40 mg - 1 by mouth every day Functional Status Description No Information Available Mental Status Description No Information Available Referrals Description No Information Available
--- OUTSIDE RECORDS SUMMARY | 2021-02-23 09:33 | CCD ---
Author Author [facility] Organization [facility] Address Unknown Phone Unavailable Care Team Providers Care Cutter V Groove Name Role Phone LeighBrandon whittington Unavailable PROBLEMS Type Condition ICD9-CM Code [id number] Code Onset Dates Condition S tatus W/U Status Risk SNOMED Code Notes Problem Atherosclerotic heart diseas e of [place] coronary artery without angina pectoris I25.10 Active confirmed 3769401317457 Problem Goiter E04.9 Active confirmed 5187557 Problem Essential (primary) hypertension I10 Active conf irmed 75940151 Problem Malignant neoplasm of prostate C61 Active confir med 493181387 Problem Pure hypercholesterolemia E78.00 Active confirmed 437481079 Problem 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 Active confirmed 977413907 Problem Acquired hypothyroidism E03.9 Active confirmed 076589515 Problem Seborrheic keratoses L82.1 Active confirmed 088497487 Problem Pharyngeal dysphagia R13.13 Active confirmed 95405173862310 Problem 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 Active confirmed 2 55176896 Problem Lumbar disc disease M51.9 Active confirmed 229167464 Problem Cervical spondylosis M47.812 Active confirmed 350896019 Problem Other chronic pain G89.29 Active confirmed 8 4320304 Problem Nocturia R35.1 Active confirmed 950073777 ALLERGIES No Known Allergies ENCOUNTERS from 1934 to 2021-01-10 Encounter Location Date Provider Diagnosis [facility] Jose Kena BUSTOS [phone] [place] [phone] Dec, Brandon Leihg IMMUNIZATIONS Vaccine Route Administration Date Status Influenza Pharmacy Given Unknown Jan 23, 2020 Adminis tered COVID-19 dose #1 given elsewhere Unspecified Unknown May 07, 2020 Administered COVID-19 dose #2 given elsewhere Unspecified Unknown May 28, 2020 Administered Influenza 18 yrs & older Flublok IM Intramuscular Jan 19, 2019 Administered Influenza (High Dose 65 & up) Unknown Feb 13, 2016 Ad ministered Influenza (High Dose 65 & up) Unknown Feb 13, 2017 Ad ministered Influenza Pharmacy Given Unknown Jan 16, 2018 Adminis tered Influenza 6mo & up Fluzone Unknown Jan 27, 2013 Admin istered Influenza (High Dose 65 & up) Unknown Jan 13, 2015 Ad ministered Zoster 0.65mL Zostavax Unknown Jan 31, 2012 Administe red Pneumococcal Adult 0.5mL Pneumovax 23 SC Subcutaneous Feb 03 13 Administered Pneumococcal Adult 0.5mL Pneumovax 23 Unknown Feb 06 99 Administered Pneumococcal 0.5mL Prevnar 13 IM Intramuscular June 15, 2014 A dministered TD Adult 0.5mL Tetanus IM Intramuscular Jan 17, 2010 Administ ered Influenza 6mo & up Fluzone Unknown Jan 26, 2015 Admin istered Influenza 6mo & up Fluzone Unknown Jan 26, 2014 Admin istered SOCIAL HISTORY Tobacco Use: Social History Observation Description Date Details (start date - stop date) Never Smoker Sex Assigned At : Social History Observation Description Sex Assigned At Unknown Education: Question Answer Notes Level of Education: Finished High School Audit Question Answer Notes Total Score: 3 Interpretation: Alcohol Education Language: Question Answer Notes Languages spoken: Greenlandic Sikhism: Question Answer Notes Sikhism No presybeterian beliefs that would impact health care. Domestic Violence: Question Answer Notes Status: Single Sexual Hx: Question Answer Notes Had sex in the last 12 months (vaginal, oral, or anal)? No Have you ever had an STD? No Drug and Alcohol Question Answer Notes Total Score: 0 Interpretation: No problems reported Alcohol Screening: Question Answer Notes Did you have a drink containing alcohol in the past year? Ye s Points 2 Interpretation Negative How often did you have six or more drinks on one occas ion in the past year? Never (0 points) How many drinks did you have on a typica l day when you were drinking in the past year? 1 or 2 (0 points) How often did you have a drink containing alcohol in t he past year? Two to four times a month (2 points) BMI Care Goal Follow-Up Question Answer Notes Above Normal BMI Follow-Up Dietary management educatio n, guidance, and counseling -25.4 Tobacco Use: Question Answer Notes Are you a: never smoker never smoker REASON FOR REFERRAL No Information VITAL SIGNS No information MEDICATIONS Medication SIG (Take, Route, Frequency, Duration) Notes Start Da te End Date Status Docusate Sodium 100 MG 1 capsule as needed Orally once daily as neede d Active Omeprazole 40 MG 1 capsule 30 minutes before morning meal Orally On ce a day Active Finasteride 5 mg 1 tablet Orally Once a day Active Ipratropium [place] 0.06 % 2 sprays in each nostril Nasally bid Active Flomax 0.4 MG TAKE ONE CAPSULE BY MOUTH EV BENSON DAY AFTER THE SAME MEAL orally Daily Active Nitrostat 0.[address] ONE TABLET UNDER THE T ONGUE EVERY 5 MINUTES FOR UP TO 3 DOSES NEEDED FOR CHEST PAIN. IF CHEST PAIN STILL PERSISTS CONTACT 911 Active Aspirin 81 MG 1 tablet Orally Once a day Active Levothyroxine Sodium 75 MCG TAKE ONE TABLET BY MOUTH EVERY DAY for 90 Active MiraLax - as directed Orally Once a day Active Prilosec 20mg 20mg 1 cap orally daily prn for heartburn Not-Taking Lipitor 10 MG TAKE 1TABLET BY MOUTH ONCE DAILY Orally Once a day Active Multivitamin Adult - Orally Acti ve Cozaar 50 mg one and one half tabs Orally Once a day Active PROCEDURES No Information RESULTS No Results REASON FOR VISIT lower right back pain MEDICAL (GENERAL) HISTORY Type Description Date Medical History Benign prostatic hypertrophy Medical History Hyperlipidemia Medical History Hypertension Medical History Thyroid disease Medical History Cervical spondylosis Medical History ? heart murmur Medical History Echo 11/25/14 Medical History Nuclear Stress Test 07/21/2015 Medical History Dexa 03/20/2012 Medical History Dry eyes Medical History Pure hypercholesterolemia Medical History Hx Meniere's, left side, s/p ablation of neural apparatus to resolve vertigo Surgical History Colonoscopy 07/22 Surgical History Heart stent 03/14/11 Surgical History Precancerous spots-frozen 02/2015 Surgical History Cataract surgery-both eyes 02/20,02/29/16 Surgical History Prostate biopsy-12 spots onl y one spot positive for slow growing cancer 01/2017 Surgical History Wart removed from stomach-additional bio psy done 04/22/17-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 03/2017 Surgical History ERBT COMPLETED 04/23/2019 [facility] Hospitalization History ER-unable to urinate-[facility] cath plac ed 04/23/2013 Hospitalization History Urgent Care-[facility]a left kapadia d 11/10/18 Goals Section No Information Health Concerns No Information MEDICAL EQUIPMENT No Information MENTAL STATUS No Information FUNCTIONAL STATUS No Information ASSESSMENTS No Information PLAN OF TREATMENT Medication Medication Name Sig Start Date Stop Date Flomax 0.4 MG TAKE ONE CAPSULE BY MOUTH EV BENSON DAY AFTER THE SAME MEAL orally Daily Multivitamin Adult - Orally Ipratropium [place] 0.06 % 2 sprays in each nostril Nasally bid Lipitor 10 MG TAKE 1TABLET BY MOUTH ONCE DAILY Orally Once a d ay Finasteride 5 mg 1 tablet Orally Once a day MiraLax - as directed Orally Once a day Nitrostat 0.[address] ONE TABLET UNDER THE T ONGUE EVERY 5 MINUTES FOR UP TO 3 DOSES NEEDED FOR CHEST PAIN. IF CHEST PAIN STILL PERSISTS CONTACT 911 Aspirin 81 MG 1 tablet Orally Once a day Levothyroxine Sodium 75 MCG TAKE ONE TABLET BY MOUTH EVERY DAY f or 90 Omeprazole 40 MG 1 capsule 30 minutes before morning meal Orally Once a day Docusate Sodium 100 MG 1 capsule as needed Orally once daily as needed Cozaar 50 mg one and one half tabs Orally Once a day Next Appt Details Provider Name:Adria Boyd, 2021-01-11 01:15:00 PM, [address] , , [place], [address], Provider Name:Brandon Leigh, 2021-02-15 08 :00:00 AM, [address] , , [place], [address], Provider Name:Bhavesh Calixto, 09:45:00 AM, [address], , [place], [address], Insurance Providers Payer Name Payer Address Payer Phone Insured Name Patient Relati onship to Insured Coverage Start Date Coverage End Date MEDICARE Part A and B [address] [facility] [id number] [phone] CESAR PINEDA self BCBS OF [facility] [phone] [facility] [id number] CESAR PINEDA 2014
--- OUTSIDE RECORDS SUMMARY | 2021-02-23 09:33 | CCD | Continuity of Care Document ---
Author Author Reymundo DELGADO MD Organization Unknown Address [address] [address] Phone [phone] Care Team Providers Care Nuclear Powerplant Mechanic Name Role Phone AUTM Unavailable Brandon Leigh M.D. AUTM [phone] Problems Active Problems Provider Date Essential hypertension Nestor Delgado JR, MD Onset: 11/29/19 21 Social History Type Date Description Comments Sex Unknown ETOH Use 2-3 A Week BEER Recreational Drug Use Denies Drug Use Tobacco Use Start: Unknown Denies Smoking Allergies, Adverse Reactions, Alerts Description No Known Drug Allergies Medications Active Medications SIG Qnty Indications Ordering Provide r Date Ipratropium [place] 0.06% Solution spray 2 sprays in each nostrils two times a day 15units Andrea wooten MD 11/09/[address] 1 by mouth every day 30caps Andrea Hernández MD 11/09/2020 Finasteride 5mg Tablets 1 by mouth every day Unknown Flomax 0.4mg Capsules 1 by mouth every day Unknown Levothyroxine Sodium 75mcg Capsule s 75 mcg by mouth daily Unknown Prilosec 20mg Capsules DR 1 tab by mouth every day Unknown Aspirin 81 Low Dose 81mg Chewtabs 1 by mouth every day Unknown Nitrostat 0.4mg Tablets Sub 1 sl every 5min x3 as needed for chest pain Unknown Multivitamin Tablets 2 by mouth every day Unknown Stool Softener 100mg Tablets 1 tab by mouth every day Unknown Atorvastatin Calcium 10mg Tablets 1 tab by mouth every day Unknown Losartan Potassium 50mg Tablets 1 tab by mouth every day Unknown Immunizations Description No Information Available Vital Signs Date Vital Result Comment 01/02/2021 2:14pm BP Systolic 147 mmHg BP Diastolic 83 mmHg Heart Rate 73 /min Body Temperature 98.6 F Height 70.5 inches 5'10.50" Weight 171.50 lb BMI (Body Mass Index) 24.3 kg/m2 [place] Body Weight 166 lb Weight 77.792 kg BSA (Body Surface Area) 1.97 m2 12/26/2020 7:53am Height 70.5 inches 5'10.50" Weight 172.00 lb BMI (Body Mass Index) 24.3 kg/m2 [place] Body Weight 166 lb Weight 78.019 kg BSA (Body Surface Area) 1.97 m2 Results Test Acquired Date Facility Test Result H/L Range Note BUN & Creatinine ([facility]) 12/07/2020 [facility] [place] [address] [phone] Blood Urea Nitrogen 15 mg/dL Normal 7-18 1 Creatinine With GFR 12/07/2020 [facility] [place] [address] [phone] Creatinine For GFR 1.20 mg/dL Normal 0.70-1.30 Glomerular Filtration Rate > 60.0 Normal >35 2 1 note:<nlbl:demographic_chang ed> 2 Units are mL/min/1.73 m2 Chronic Kidney Disease Staging per NKF: Stage I & II GFR >=60 Normal to Mildly Decreased Stage III GFR 30-59 Moderately Decreased Stage IV GFR 15-29 Severely Decreased Stage V GFR <15 Very Little GFR Left ESRD GFR <15 on GILL TENDER Procedures Date Code Description Status 01/02/2021 07945 Office/Outpatient Established Lo w MDM 20-29 Min Completed 12/26/2020 97974 Office/Outpatient Established SF MDM 10-19 Min Completed 11/30/2020 28613 Office/Outpatient New Moderate M DM 45-59 Minutes Completed 11/09/2020 20414 Office/Outpatient New Moderate M DM 45-59 Minutes Completed 11/09/2020 86363 Laryngoscopy Flexible Fiberoptic Diagnostic Completed Medical Devices Description No Information Available Encounters Type Date Location Provider Dx Diagnosis Office Visit 01/02/2021 2:15p [facility] Nestor akins JR, MD R10.31 Right lower quadrant pain Office Visit 12/26/2020 7:50a [facility] Andrea Hernández MD K21.9 Gastro-esophageal reflux disease without esophagitis Office Visit 11/30/2020 10:00a [facility] Practice Nestor akins JR, MD R10.31 Right lower quadrant pain Z12.11 Encounter for screening for malignant neoplasm of colon Office Visit 11/09/2020 8:30a [facility] Andrea Hernández MD K21.9 Gastro-esophageal reflux disease without esophagitis J31.0 Chronic rhinitis Assessments Date Code Description Provider 01/02/2021 R10.31 Right lower quadrant pain Nestor Delgado JR, MD 12/26/2020 K21.9 Gastro-esophageal reflux disease without esophagitis Andrea Hernández MD 11/30/2020 R10.31 Right lower quadrant pain Nestor Delgado JR, MD 11/30/2020 Z12.11 Encounter for screening for bogdan gnant neoplasm of colon Nestor Delgado JR, MD 11/09/2020 K21.9 Gastro-esophageal reflux disease without esophagitis Andrea Hernández MD 11/09/2020 J31.0 Chronic rhinitis Andrea Hernández MD Plan of Treatment Future Appointment(s):* 03/07/2021 1:00 pm - AJAY Li at [facility] * 01/31/2021 7:40 am - Andrea Hernández MD at [facility] * 02/23/2021 11:35 am - Nestor Delgado JR, MD at [facility] 01/02/2021 - Nestor Delgado JR, MD* R10.31 Right lower quadrant pain* Comments: * With the patient's abdominal pain and the abnormal findings on the CAT scan I do feel that it is reasonable to proceed with a colonoscopy for completeness sake however I feel that this is going to be a very low likelihood of finding significant abnormalities. Obviously were looking for benign as well as malignant etiologies for abdominal pain. It may actually be a musculoskeletal issue with radiation of pain from his lower back as his major issue but in any case we discuss further evaluation and he would like to proceed with colonoscopy and we will schedule that for him. Functional Status Description No Information Available Mental Status Description No Information Available Referrals Refer to Reason for Referral Status Appt Date Too Cummings M.D. Pharyngeal dysphagia, Closed [address] [address] [phone]
--- OUTSIDE RECORDS SUMMARY | 2021-02-23 09:33 | CCD | Continuity of Care Document ---
Author Reymundo Velez DO Organization Unknown Address [address] [place] [address] Phone [phone] Problems Active Problems Provider Date Coronary arteriosclerosis Alfredo Watson DO Onset: 10/2020 Allergic rhinitis Alfredo Watson DO Onset: 1 Constipation Alfredo Watson DO Onset: 1 Adult health examination Alfredo Watson DO Onset: 10/2020 Hypothyroidism Alfredo Watson DO Onset: 1 Essential hypertension Alfredo Watson DO Onset: 2020 Social History Type Date Description Comments Sex Unknown ETOH Use Occasionally consumes alcohol Tobacco Use Start: Unknown Patient has never smoked Allergies and adverse reactions Description No Known Drug Allergies Medications Active Medications SIG Qnty Indications Ordering Provide r Date Cozaar 50mg Tablets 1 by mouth every day 90tabs Alfredo Watson DO 01/19/2021 Levothyroxine Sodium 75mcg Tablets 1 by mouth every day 90tabs Alfredo Watson DO 01/20/20 21 Docusate Sodium 100mg Capsules 1 by mouth twice a day 60caps Alfredo Watson, 01/20/20 21 Ipratropium [place] 0.06% Solution 2 sprays in each nostril 2-3 times a day as needed for running nose 45ml Alfredo Watson DO 01/19/[address] 1 by mouth every day 90caps Alfredo Watson DO 01/20/[address] [...] H/L Range Note Complete Blood Count 01/19/2021 [facility] [employer] Supervisor reji lozoya Optical Glass Sawyer: [place] [address] [phone] WBC 4.3 x10*3/UL 4.1 - 10.9 RBC [...] 2.0 - 7.8 Comprehensive Chem Profile 01/19/2021 [facility] re[facility] G[facility] Optical Glass Sawyer: [place] [address] [phone] Glucose 102 mg/dL High 74 - 99 [...] mL/min Low >60 2 Lipid Profile 01/19/2021 [facility] , Optical Glass Sawyer: Dr Eleazar Watson [place] [id number] [phone] Cholesterol 133 mg/dL 131 - 200 Triglycerides 57 mg/dL 30 - 150 HDL Cholesterol 61 mg/dL High 35 - 60 LDL (Calculated) 61 CALC 50 - 159 Laboratory test finding 01/19/2021 [facility] Cle[employer] Distribution Clerk [employer], Optical Glass Sawyer: Dr Eleazar Watson [place] [id number] [phone] PSA <pending> Laboratory test finding 01/19/2021 [facility] Cle[employer] Distribution Clerk alexy, Optical Glass Sawyer: Dr Eleazar Watson [place], [place] [id number] [phone] Thyroid Stimulating Hormone 0.38 uIU/mL 0.3 6 - 3.74 1 100-125 mg/dL PRE-DIABET ES/FASTING >126 mg/dL DIABETES/FASTING 2 CHRONIC KIDNEY DISEASE STAGI NG PER NKF STAGE I & II GFR >= 60 NORMAL TO MILDLY DECREASED STAGE III GFR 30-59 MODERATELY DECREASED STAGE IV GFR 15-29 SEVERELY DECREASED STAGE V GFR <15 VERY LITTLE GFR LEFT ESRD GFR <15 ON LICENSE AND PERMIT SPECIALIST Procedures Description No Information Available Medical Devices Description No Information Available Encounters Description No Information Available Assessments Date Code Description Provider 01/19/2021 I25.10 Atherosclerotic hear t disease of [place] coronary artery without angina pectoris Alfredo Watson, 01/19/2021 I10 Essential (primary) hypertension Alfredo Watson, 01/19/2021 E03.9 Hypothyroidism, unspecified Chri rizwan Watson, DO 01/19/2021 N40.1 Benign prostatic hyperplasia wit h lower urinary tract symptoms Alfredo Watson, 01/19/2021 Z00.00 Encounter for genera l adult medical examination without abnormal findings Alfredo Watson, 01/19/2021 K59.00 Constipation, unspecified Jordan Watson, DO 01/19/2021 J30.9 Allergic rhinitis, unspecified C cabrera Watson, DO 01/19/2021 M54.50 Low back pain, unspecified Jona shelton Walter, DO 01/19/2021 L24.9 Irritant contact dermatitis, uns pecified cause Alfredo Watson DO Plan of Treatment Future Appointment(s):* 04/20/2021 8:40 am - Alfredo Watson DO at [facility] 01/19/2021 - Alfredo Watson DO* I25.10 Atherosclerotic heart disease of [place] coronary artery without angina pectoris * I10 Essential (primary) hypertension* Comments:* Well controlled and at target on current regimen. He is tolerating this well. * E03.9 Hypothyroidism, unspecified* Comments:* Reassess TSH today and adjust dosing as needed. * N40.1 Benign prostatic hyperplasia with lower [...] that we could increase flomax dosing. * Z00.00 Encounter for general adult medical examination without abnormal findings* Comments:* He is generally doing well at this time. His medical, social and family history were reviewed in the depth. His HCM is UTD, he has repeat colonoscopy in 02/2021. * K59.00 Constipation, unspecified* Comments:* Well controlled. [...] he keep area dry and clean. * All * New Medication:* Cozaar 50 mg - 1 by mouth every day * Levothyroxine Sodium 75 mcg - 1 by mouth every day * Docusate Sodium 100 mg - 1 by mouth twice a day * Ipratropium [place] 0.06 % - 2 sprays in each nostril 2-3 times a day as needed for running nose * Omeprazole 40 mg - 1 by mouth every day Functional Status Description No Information Available Mental Status Description No Information Available Referrals Description No Information Available
--- OUTSIDE RECORDS SUMMARY | 2021-02-23 09:33 | CCD | Continuity of Care Document ---
Author Author Reymundo ABREU DO Organization Unknown Address [address] [place] [address] Phone [phone] Problems Active Problems Provider Date Essential hypertension [...] 60caps Alfredo Abreu DO 01/20/20 21 Ipratropium [place] 0.06% Solution 2 sprays in each nostril [...] Date Facility Test Result H/L Range Note Coronavirus 2019 Nasopharygeal 02/18/2021 [facility] [address] [place] [address] [phone] Coronavirus 2019 Nasopharygeal ASSAY INFORMATIO <SEE N OTE> 1 Complete Blood Count 01/19/2021 [place] Hand Tile Maker reji lozoya Refractory Repairer: [place] [address] [phone] WBC 4.3 x10*3/UL 4.1 - 10.9 RBC [...] 2.0 - 7.8 Comprehensive Chem Profile 01/19/2021 [place] reji Gtz Refractory Repairer: [place] [address] [phone] Glucose 102 mg/dL High 74 - 99 2 BUN 17 mg/dL 7 - 18 Creatinine [...] Low >60 GFR 58 mL/min Low >60 3 Lipid Profile 01/19/2021 [facility] , Refractory Repairer: Dr Eleazar Abreu [place] [id number] [phone] Cholesterol 133 mg/dL 131 - 200 Triglycerides 57 mg/dL 30 - 150 HDL Cholesterol 61 mg/dL High 35 - 60 LDL (Calculated) 61 CALC 50 - 159 Laboratory test finding 01/19/2021 [place] Restaurant Front Manager alexy Refractory Repairer: Dr [place] [address] [phone] PSA <0.13 ng/mL <4.00 4 Laboratory test finding 01/19/2021 [place] [employer] Front Manager alexy Refractory Repairer: Dr Eleazar [place] [address] [phone] Thyroid Stimulating Hormone 0.38 uIU/mL 0.3 6 - 3.74 1 ASSAY INFORMATION: Real Time RT-PCR NOTE: The COVID-19 assay has been cleared by the U.S. Food and Drug Administration under the Emergency Use Authorization (EUA). [facility] and [facility] are designated as high complexity laboratories by the Clinical Laboratory Improvement Amendments of 1988(CLIA) and are qualified to perform this test. Not Detected 2 100-125 mg/dL PRE-DIABET ES/FASTING >126 mg/dL DIABETES/FASTING 3 CHRONIC KIDNEY DISEASE STAGI NG PER NKF STAGE I & II GFR >= 60 NORMAL TO MILDLY DECREASED STAGE III GFR 30-59 MODERATELY DECREASED STAGE IV GFR 15-29 SEVERELY DECREASED STAGE V GFR <15 VERY LITTLE GFR LEFT ESRD GFR <15 ON MANAGER POLICY 4 This assay was performed on the Siemens Dimension EXL using the B- Galactosidase/CPRG methodology and should not be compared interchangeably with other methods. The PSA should not be used alone as a screening test for the presence or absence of malignant disease. Procedures Date Code Description Status 01/19/2021 46925 Office/Outpatient New Moderate M DM 45-59 Minutes Completed 01/19/2021 44641 EKG/Interpretation & Report Comp leted Medical Devices Description No Information Available Encounters Type Date Location Provider Dx Diagnosis Office Visit 01/19/2021 8:00a [facility] Chr isnikita Abreu, DO I25.10 Athscl heart disease of [...] 01/19/2021 I25.10 Atherosclerotic hear t disease of [place] coronary artery without angina pectoris Alfredo Abreu, DO 01/19/2021 I10 Essential (primary) hypertension Alfredo Abreu, DO 01/19/2021 E03.9 Hypothyroidism, unspecified Chri stopher Abreu, DO 01/19/2021 Z85.46 Personal history of malignant ne oplasm of prostate Alfredo Abreu, DO 01/19/2021 R35.1 Nocturia Alfredo Soria ogg, DO 01/19/2021 N40.1 Benign prostatic hyperplasia wit h lower urinary tract symptoms Alfredo Abreu, DO 01/19/2021 K59.00 Constipation, unspecified Jordan Abreu, DO 01/19/2021 J30.9 Allergic rhinitis, unspecified C hrdong Abreu, DO 01/19/2021 M54.50 Low back pain, unspecified Jona shelton Walter, DO 01/19/2021 L24.9 Irritant contact dermatitis, uns pecified cause Jordanjose roberto Walter, DO 01/19/2021 Z13.89 Encounter for screening for othe r disorder Alfredo Abreu DO Plan of Treatment Future Appointment(s):* 04/20/2021 8:40 am - Alfredo Abreu DO at [facility] 01/19/2021 - Alfredo Abreu DO* I25.10 Atherosclerotic heart disease of [place] coronary artery without angina pectoris * I10 [...] by mouth twice a day * Ipratropium [place] 0.06 % - 2 sprays in each nostril 2-3 times a day as needed for running nose * Omeprazole 40 mg - 1 by mouth every day Functional Status Description No Information Available Mental Status Description No Information Available Referrals Description No Information Available
--- OUTSIDE RECORDS SUMMARY | 2021-02-23 09:33 | CCD ---
Author Author [facility] Organization [facility] Address Unknown Phone Unavailable Care Team Providers Care Scrum Project Manager Name Role Phone LeighBrandon whittington Unavailable PROBLEMS Type Condition ICD9-CM Code [id number] Code Onset Dates Condition S tatus W/U Status Risk SNOMED Code Notes Problem Atherosclerotic heart diseas e of [place] coronary artery without angina pectoris I25.10 Active confirmed 3080292846848 Problem Goiter E04.9 Active confirmed 2695488 Problem Essential (primary) hypertension I10 Active conf irmed 87659879 Problem Malignant neoplasm of prostate C61 Active confir med 806248884 Problem Pure hypercholesterolemia E78.00 Active confirmed 805651920 Problem 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 Active confirmed 195095600 Problem Acquired hypothyroidism E03.9 Active confirmed 833303206 Problem Seborrheic keratoses L82.1 Active confirmed 208579920 Problem Pharyngeal dysphagia R13.13 Active confirmed 25024591908001 Problem 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 Active confirmed 2 72815382 Problem Lumbar disc disease M51.9 Active confirmed 243893977 Problem Cervical spondylosis M47.812 Active confirmed 157463990 Problem Other chronic pain G89.29 Active confirmed 8 5557655 Problem Nocturia R35.1 Active confirmed 795633079 ALLERGIES No Known Allergies ENCOUNTERS from 1935 to 2021-02-16 Encounter Location Date Provider Diagnosis [facility] Jose Kena BUSTOS [phone] [place] [address] Feb, Brandon Leigh IMMUNIZATIONS Vaccine Route Administration Date Status Influenza [...] Intramuscular June 15, 2014 A dministered TD PED 0.5mL Tetanus IM Intramuscular Jan 17, 2010 Administer ed Influenza 6mo & up Fluzone Unknown Jan [...] Education Language: Question Answer Notes Languages spoken: Occitan Rastafari: Question Answer Notes Rastafari No anglican beliefs that would impact health care. Domestic [...] Notes Start Da te End Date Status Aspirin 81 MG 1 tablet Orally Once a day Active Omeprazole 40 MG 1 capsule 30 minutes before morning meal Orally Once a day for 90 days Active Atorvastatin Calcium 10 MG TAKE ONE TABLET BY MOUTH EVERY DAY for 90 Active Docusate Sodium 100 MG 1 capsule as needed Orally once daily as neede d Active Tamsulosin HCl 0.4 MG TAKE ONE CAPSULE BY MOUTH ON CE DAILY AFTER THE SAME MEAL for 90 Active Levothyroxine Sodium 75 MCG TAKE ONE TABLET BY MOUTH EVERY DAY for 90 Active Ipratropium [place] 0.06 % 2 sprays in each nostril Nasally bid Active Multivitamin Adult - Orally Acti ve Cozaar 50 mg one and one half tabs Orally Once a day Active Nitrostat 0.[address] ONE TABLET UNDER THE T ONGUE EVERY 5 MINUTES FOR UP TO 3 DOSES NEEDED FOR CHEST PAIN. IF CHEST PAIN STILL PERSISTS CONTACT 911 Active Prilosec 20mg 20mg 1 cap orally daily prn for heartburn Not-Taking Finasteride 5 MG TAKE ONE TABLET BY MOUTH EVERY DAY for 90 Active MiraLax - as directed Orally Once a day Active PROCEDURES No Information RESULTS No Results REASON FOR VISIT rx MEDICAL (GENERAL) HISTORY Type Description Date Medical [...] Wart removed from stomach-additional bio psy done 04/22/17-BRAKE RELINER 03/2017 Surgical History ERBT COMPLETED 04/23/2019 [facility] Hospitalization History ER-unable to urinate-[facility] cath plac ed 04/23/2013 Hospitalization History Urgent Care-[address] [facility]-Xray left kapadia d 11/10/18 Goals Section No Information Health Concerns No Information MEDICAL EQUIPMENT No Information MENTAL STATUS No Information FUNCTIONAL STATUS No Information ASSESSMENTS No Information PLAN OF TREATMENT Medication Medication Name Sig Start Date Stop Date Tamsulosin HCl 0.4 MG TAKE ONE CAPSULE BY MOUTH ON CE DAILY AFTER THE SAME MEAL for 90 Finasteride 5 MG TAKE ONE TABLET BY MOUTH EVERY DAY for 90 Omeprazole 40 MG 1 capsule 30 minutes before morning meal Orally Once a day for 90 days Atorvastatin Calcium 10 MG TAKE ONE TABLET BY MOUTH EVERY DAY fo 90 Next Appt Details Provider Name:Bhavehs Mendoza Durga, 09:45:00 AM, [address], , [place], [address], Insurance Providers Payer Name Payer Address Payer Phone Insured Name Patient Relati onship to Insured Coverage Start Date Coverage End Date [employer] OF [facility] [id number] [facility] [address] CESAR PINEDA self 2013 MEDICARE Part A and B [address] [place] [id number] CESAR PINEDA self
--- OUTSIDE RECORDS SUMMARY | 2021-02-23 09:33 | CCD | Continuity of Care Document ---
Author Author Reymundo HERNÁNDEZ MD Organization Unknown Address [address] [address] Phone [phone] Care Team Providers Care Oceanology Teacher Name Role Phone AUTM Unavailable Brandon Leigh M.D. AUTM [phone] Problems Active Problems Provider Date Essential hypertension Nestor Delgado JR, MD Onset: 11/29/19 21 Social History Type Date Description Comments Sex Unknown ETOH Use 2-3 A Week BEER Recreational Drug Use Denies Drug Use Tobacco Use Start: Unknown Denies Smoking Allergies and adverse reactions Description No Known Drug Allergies Medications Active Medications SIG Qnty Indications Ordering Provide r Date Mucinex 600mg Tablets ER 12HR 1 by mouth twice a day 180tabs Andrea Hernández MD 01/31/2021 Guaifenesin SR 600mg Tablets ER 12 HR 1 tab bid 60tabs J31.0 Andrea Hernández MD 01/31/2021 Ipratropium [place] 0.06% Solution spray 2 sprays in each [...] Available Vital Signs Date Vital Result Comment 01/31/2021 7:31am Height 70.5 inches 5'10.50" Weight 174.00 lb BMI (Body Mass Index) 24.6 kg/m2 [place] Body Weight 166 lb Weight 78.926 kg BSA (Body Surface Area) 1.98 m2 01/02/2021 2:14pm BP Systolic 147 mmHg BP Diastolic 83 mmHg Heart Rate 73 /min Body Temperature 98.6 F Height 70.5 inches 5'10.50" Weight 171.50 lb BMI (Body Mass Index) 24.3 kg/m2 [place] Body Weight 166 lb Weight 77.792 kg BSA (Body Surface Area) 1.97 m2 Results Test Acquired Date Facility Test Result H/L Range Note BUN & Creatinine ([facility]) 12/07/2020 [facility] [place] [address] [phone] Blood Urea Nitrogen 15 mg/dL Normal 7-18 1 Creatinine With GFR 12/07/2020 [facility] [place] [address] [phone] Creatinine For GFR 1.20 mg/dL Normal 0.70-1.30 Glomerular Filtration Rate > 60.0 Normal >35 2 1 note:<nlbl:demographic_chang ed> 2 Units are mL/min/1.73 m2 Chronic Kidney Disease Staging per NKF: Stage I & II GFR >=60 Normal to Mildly Decreased Stage III GFR 30-59 Moderately Decreased Stage IV GFR 15-29 Severely Decreased Stage V GFR <15 Very Little GFR Left ESRD GFR <15 on RECREATIONAL VEHICLE REPAIRER Procedures Date Code Description Status 01/31/2021 91757 Office/Outpatient Established Lo w MDM 20-29 Min Completed 01/02/2021 12353 Office/Outpatient Established Lo w MDM 20-29 Min Completed 12/26/2020 98564 Office/Outpatient Established SF MDM 10-19 Min Completed 11/30/2020 88106 Office/Outpatient New Moderate M DM 45-59 Minutes Completed 11/09/2020 54691 Office/Outpatient New Moderate M DM 45-59 Minutes Completed 11/09/2020 60158 Laryngoscopy Flexible Fiberoptic Diagnostic Completed Medical Devices Description No Information Available Encounters Type Date Location Provider Dx Diagnosis Office Visit 01/31/2021 7:40a [facility] Andrea Hernández MD K21.9 Gastro-esophageal reflux disease without esophagitis J31.0 Chronic rhinitis Office Visit 01/02/2021 2:15p [facility] Nestor akins JR, MD R10.31 Right lower quadrant pain Office Visit 12/26/2020 7:50a [facility] Andrea Hernández MD K21.9 Gastro-esophageal reflux disease without esophagitis Office Visit 11/30/2020 10:00a [facility] Nestor akins JR, MD R10.31 Right lower quadrant pain Z12.11 Encounter for screening for malignant neoplasm of colon Office Visit 11/09/2020 8:30a [facility] Practice Andrea Hernández MD K21.9 Gastro-esophageal reflux disease without esophagitis J31.0 Chronic rhinitis Assessments Date Code Description Provider 01/31/2021 K21.9 Gastro-esophageal reflux disease without esophagitis Andrea Hernández MD 01/31/2021 J31.0 Chronic rhinitis Andrea Hernández MD 01/02/2021 R10.31 Right lower quadrant pain Nestor [...] 03/07/2021 1:00 pm - AJAY Li at [facility] * 02/23/2021 11:35 am - Nestor Delgado JR, MD at [facility] 01/31/2021 - Andrea Hernández MD* K21.9 Gastro-esophageal reflux disease without esophagitis * J31.0 Chronic rhinitis* New Medication:* Guaifenesin SR 600 mg - 1 tab bid * Follow up:* 1 MONTH Functional Status Description No Information Available Mental Status Description No Information Available Referrals Refer to Reason for Referral Status Appt Date Too Cummings M.D. Pharyngeal dysphagia, Closed [address] [address] [phone]
--- OUTSIDE RECORDS SUMMARY | 2021-02-23 09:33 | CCD | Continuity of Care Document ---
Author Author Reymundo HERNÁNDEZ MD Organization Unknown Address [address] [facility] [address] [place] [address] Phone [phone] Care Team Providers Care Internal Medicine Doctor Name Role Phone AUTM Unavailable Brandon Leigh M.D. AUTM [phone] Problems Active Problems Provider Date Essential hypertension [...] a day 180tabs Andrea Hernández MD 01/31/2021 Ipratropium [place] 0.06% Solution spray 2 sprays in each nostrils two times a day 15units Andrea wooten MD 11/09/[address] 1 by mouth every day 30caps nAdrea Hernández MD 11/09/2020 Finasteride 5mg Tablets 1 [...] lb BMI (Body Mass Index) 24.6 kg/m2 [place] Body Weight 166 lb Weight 78.926 kg BSA (Body Surface Area) 1.98 m2 01/02/2021 2:14pm BP Systolic 147 mmHg BP Diastolic 83 mmHg Heart Rate 73 /min Body Temperature 98.6 F Height 70.5 inches 5'10.50" Weight 171.50 lb BMI (Body Mass Index) 24.3 kg/m2 [place] Body Weight 166 lb Weight 77.792 kg BSA (Body Surface Area) 1.97 m2 Results Test Acquired Date Facility Test Result H/L Range Note BUN & Creatinine ([facility]) 12/07/2020 [facility] [place] [address] [phone] Blood Urea Nitrogen 15 mg/dL Normal 7-18 1 Creatinine With GFR 12/07/2020 [facility] [place] [address] [phone] Creatinine For GFR 1.20 mg/dL Normal 0.70-1.30 Glomerular Filtration Rate > 60.0 Normal >35 2 1 note:<nlbl:demographic_[facility] ed> 2 Units are mL/min/1.73 m2 Chronic Kidney Disease Staging per NKF: Stage I & II GFR >=60 Normal to Mildly Decreased Stage III GFR 30-59 Moderately Decreased Stage IV GFR 15-29 Severely Decreased Stage V GFR <15 Very Little GFR Left ESRD GFR <15 on CMO & PRESIDENT Procedures Date Code Description Status 01/02/2021 15614 Office/Outpatient Established Lo w MDM 20-29 Min Completed 12/26/2020 66360 Office/Outpatient Established SF MDM 10-19 Min Completed 11/30/2020 89328 Office/Outpatient New Moderate M DM 45-59 Minutes Completed 11/09/2020 92309 Office/Outpatient New Moderate M DM 45-59 Minutes Completed 11/09/2020 06954 Laryngoscopy Flexible Fiberoptic Diagnostic Completed Medical Devices Description No Information Available Encounters Type Date Location Provider Dx Diagnosis Office Visit 01/02/2021 2:15p [facility] Nestor akins JR, MD R10.31 Right lower quadrant pain Office Visit 12/26/2020 7:50a [facility] Andrea Hernández MD K21.9 Gastro-esophageal reflux disease without esophagitis Office Visit 11/30/2020 10:00a [facility] Nestor akins JR, MD R10.31 Right lower quadrant pain Z12.11 Encounter for screening for malignant neoplasm of colon Office Visit 11/09/2020 8:30a [facility] Andrea Hernández MD K21.9 Gastro-esophageal [...] 03/07/2021 1:00 pm - AJAY Li at [facility] * 02/23/2021 11:35 am - Nestor Delgado JR, MD at [facility] Functional Status Description No Information Available Mental Status Description No Information Available Referrals Refer to Dr Reason for Referral Status Appt Date Too Cummings M.D. Pharyngeal dysphagia, Closed [address] [address] [phone]
--- OUTSIDE RECORDS SUMMARY | 2021-02-23 09:33 | CCD | Continuity of Care Document ---
Author Reymundo Velez DO Organization Unknown Address [address] [place] [address] Phone [phone] Problems Active Problems Provider Date Coronary arteriosclerosis [...] day 60caps Alfredo Watson, 01/20/20 21 Ipratropium [place] 0.06% Solution 2 sprays in each nostril [...] H/L Range Note Complete Blood Count 01/19/2021 [facility] Sander reji lozoya Ballistic Technician: [place] [address] [phone] WBC 4.3 x10*3/UL 4.1 - 10.9 RBC [...] 2.0 - 7.8 Comprehensive Chem Profile 01/19/2021 [facility] Ballistic Technician: [place] [address] [phone] Glucose 102 mg/dL High 74 - 99 [...] mL/min Low >60 2 Lipid Profile 01/19/2021 [facility] , Ballistic Technician: Dr Eleazar Watson [place] [id number] [phone] Cholesterol 133 mg/dL 131 - 200 Triglycerides 57 mg/dL 30 - 150 HDL Cholesterol 61 mg/dL High 35 - 60 LDL (Calculated) 61 CALC 50 - 159 Laboratory test finding 01/19/2021 [facility] Cylinder [employer] Operator isricco, Ballistic Technician: Dr Eleazar Watson [place] [id number] [phone] PSA <pending> Laboratory test finding 01/19/2021 [facility] C[employer] Press Operator alexy, Ballistic Technician: Dr Eleazar Watson [place], [place] [id number] [phone] Thyroid Stimulating Hormone 0.38 uIU/mL 0.3 6 - 3.74 1 100-125 mg/dL PRE-DIABET ES/FASTING >126 mg/dL DIABETES/FASTING 2 CHRONIC KIDNEY DISEASE STAGI NG PER NKF STAGE I & II GFR >= 60 NORMAL TO MILDLY DECREASED STAGE III GFR 30-59 MODERATELY DECREASED STAGE IV GFR 15-29 SEVERELY DECREASED STAGE V GFR <15 VERY LITTLE GFR LEFT ESRD GFR <15 ON SPARE PARTS CLERK Procedures Description No Information Available Medical Devices Description No Information Available Encounters Description No Information Available Assessments Date Code Description Provider 01/19/2021 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 01/19/2021 - Alfredo Watson DO* I25.10 Atherosclerotic heart disease of [place] coronary artery without angina pectoris * I10 [...] by mouth twice a day * Ipratropium [place] 0.06 % - 2 sprays in each nostril 2-3 times a day as needed for running nose * Omeprazole 40 mg - 1 by mouth every day Functional Status Description No Information Available Mental Status Description No Information Available Referrals Description No Information Available
--- OUTSIDE RECORDS SUMMARY | 2021-02-23 09:33 | CCD | Continuity of Care Document ---
Author Author Reymundo ABREU DO Organization Unknown Address [address] [place] [address] Phone [phone] Problems Active Problems Provider Date Essential hypertension [...] 60caps Alfredo Abreu DO 01/20/20 21 Ipratropium [place] 0.06% Solution 2 sprays in each nostril [...] H/L Range Note Complete Blood Count 01/19/2021 [facility] [employer] [facility] [employer] Bulkhead Carpenter: [place] [address] [phone] WBC 4.3 x10*3/UL 4.1 - 10.9 RBC [...] 2.0 - 7.8 Comprehensive Chem Profile 01/19/2021 [facility] Gtz Bulkhead Carpenter: [place] [address] [phone] Glucose 102 mg/dL High 74 - 99 [...] mL/min Low >60 2 Lipid Profile 01/19/2021 [facility] Bulkhead Carpenter: [place] [address] [phone] Cholesterol 133 mg/dL 131 - 200 Triglycerides 57 mg/dL 30 - 150 HDL Cholesterol 61 mg/dL High 35 - 60 LDL (Calculated) 61 CALC 50 - 159 Laboratory test finding 01/19/2021 [facility] Mcguire Bulkhead Carpenter: [place] [address] [phone] PSA <pending> Laboratory test finding 01/19/2021 [facility] Bulkhead Carpenter: [place] [address] [phone] Thyroid Stimulating Hormone 0.38 uIU/mL 0.3 6 - 3.74 1 100-125 mg/dL PRE-DIABET ES/FASTING >126 mg/dL DIABETES/FASTING 2 CHRONIC KIDNEY DISEASE STAGI NG PER NKF STAGE I & II GFR >= 60 NORMAL TO MILDLY DECREASED STAGE III GFR 30-59 MODERATELY DECREASED STAGE IV GFR 15-29 SEVERELY DECREASED STAGE V GFR <15 VERY LITTLE GFR LEFT ESRD GFR <15 ON CUT OFF SAW OPERATOR Procedures Date Code Description Status 01/19/2021 28352 Office/Outpatient New Moderate M DM 45-59 Minutes Completed 01/19/2021 56901 EKG/Interpretation & Report Comp leted Medical Devices Description No Information Available Encounters Type Date Location Provider Dx Diagnosis Office Visit 01/19/2021 8:00a [facility] 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 01/19/2021 - Alfredo Abreu DO* I25.10 Atherosclerotic heart disease of [place] coronary artery without angina pectoris * I10 [...] by mouth twice a day * Ipratropium [place] 0.06 % - 2 sprays in each nostril 2-3 times a day as needed for running nose * Omeprazole 40 mg - 1 by mouth every day Functional Status Description No Information Available Mental Status Description No Information Available Referrals Description No Information Available
--- OUTSIDE RECORDS SUMMARY | 2021-02-23 09:34 | CCD | Continuity of Care Document ---
Author Author Reymundo DELGADO MD Organization Unknown Address [address] [address] Phone [phone] Care Team Providers Care Fiberglass Container Winding Operator Name Role Phone AUTM Unavailable Brandon Leigh M.D. AUTM [phone] Problems Active Problems Provider Date Essential hypertension Nestor Delgado JR, MD Onset: 11/29/19 21 Social History Type Date Description Comments Sex Unknown ETOH Use 2-3 A Week BEER Recreational Drug Use Denies Drug Use Tobacco Use Start: Unknown Denies Smoking Allergies, Adverse Reactions, Alerts Description No Known Drug Allergies Medications Active Medications SIG Qnty Indications Ordering Provide r Date Ipratropium [place] 0.06% Solution spray 2 sprays in each [...] lb BMI (Body Mass Index) 24.3 kg/m2 [place] Body Weight 166 lb Weight 77.792 kg BSA (Body Surface Area) 1.97 m2 12/26/2020 7:53am Height 70.5 inches 5'10.50" Weight 172.00 lb BMI (Body Mass Index) 24.3 kg/m2 [place] Body Weight 166 lb Weight 78.019 kg BSA (Body Surface Area) 1.97 m2 Results Test Acquired Date Facility Test Result H/L Range Note BUN & Creatinine ([facility]) 12/07/2020 [facility] [place] [address] [phone] Blood Urea Nitrogen 15 mg/dL Normal 7-18 1 Creatinine With GFR 12/07/2020 [facility] [place] [address] [phone] Creatinine For GFR 1.20 mg/dL Normal 0.70-1.30 Glomerular Filtration Rate > 60.0 Normal >35 2 1 note:<nlbl:demographic_chang ed> 2 Units are mL/min/1.73 m2 Chronic Kidney Disease Staging per NKF: Stage I & II GFR >=60 Normal to Mildly Decreased Stage III GFR 30-59 Moderately Decreased Stage IV GFR 15-29 Severely Decreased Stage V GFR <15 Very Little GFR Left ESRD GFR <15 on OFFICE HELPER Procedures Date Code Description Status 12/26/2020 86197 Office/Outpatient Established SF MDM 10-19 Min Completed 11/30/2020 65126 Office/Outpatient New Moderate M DM 45-59 Minutes Completed 11/09/2020 16420 Office/Outpatient New Moderate M DM 45-59 Minutes Completed 11/09/2020 47319 Laryngoscopy Flexible Fiberoptic Diagnostic Completed Medical Devices Description No Information Available Encounters Type Date Location Provider Dx Diagnosis Office Visit 12/26/2020 7:50a [facility] Andrea Hernández MD K21.9 Gastro-esophageal reflux disease without esophagitis Office Visit [facility] Nestor akins JR, MD R10.31 Right lower quadrant pain Z12.11 Encounter for screening for malignant neoplasm of colon Office Visit 11/09/2020 8:30a [facility] Andrea Hernández MD K21.9 Gastro-esophageal reflux disease without esophagitis J31.0 Chronic rhinitis Assessments Date Code Description Provider 12/26/2020 K21.9 Gastro-esophageal reflux disease without esophagitis Andrea Hernández MD 11/30/2020 R10.31 Right lower quadrant pain Nestor Delgado JR, MD 11/30/2020 Z12.11 Encounter for screening for bogdan gnant neoplasm of colon Nestor Delgado JR, MD 11/09/2020 K21.9 Gastro-esophageal reflux disease without esophagitis Andrea Hernández MD 11/09/2020 J31.0 Chronic rhinitis Andrea Hernández MD Plan of Treatment Future Appointment(s):* 01/16/2021 11:00 am - Andrea Hernández MD at [facility] * 03/08/2021 10:15 am - AJAY Li at [facility] * 02/23/2021 11:35 am - Nestor Delgado JR, MD at [facility] 12/26/2020 - Andrea Hernández MD* K21.9 Gastro-esophageal reflux disease without esophagitis* New Xrays:* Barium Swallow, Esophagram, Scheduled: 01/10/21 Functional Status Description No Information Available Mental Status Description No Information Available Referrals Refer to Dr Reason for Referral Status Appt Date Too Cummings M.D. Pharyngeal dysphagia, Closed [address] [address] [phone]
--- OUTSIDE RECORDS SUMMARY | 2021-02-23 09:34 | CCD ---
Author Author [facility] Organization [facility] Address Unknown Phone Unavailable Care Team Providers Care Social Service Manager Name Role Phone Brandon Leigh Unavailable PROBLEMS Type Condition ICD9-CM Code HUC35-UG Code Onset Dates Condition S tatus W/U Status Risk SNOMED Code Notes Problem Atherosclerotic heart diseas e of [place] coronary artery without angina pectoris I25.10 Active confirmed 1032305162664 Problem Goiter E04.9 Active confirmed 6827442 Problem Essential (primary) hypertension I10 Active conf irmed 49956029 Problem Malignant neoplasm of prostate C61 Active confir med 783559746 Problem Pure hypercholesterolemia E78.00 Active confirmed 243443247 Problem 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 Active confirmed 434712750 Problem Acquired hypothyroidism E03.9 Active confirmed 240109610 Problem Seborrheic keratoses L82.1 Active confirmed 177802176 Problem Pharyngeal dysphagia R13.13 Active confirmed 43501368807721 Problem 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 Active confirmed 2 99404338 Problem Lumbar disc disease M51.9 Active confirmed 802409828 Problem Cervical spondylosis M47.812 Active confirmed 920174585 Problem Other chronic pain G89.29 Active confirmed 8 4892977 Problem Nocturia R35.1 Active confirmed 311808515 ALLERGIES No Known Allergies ENCOUNTERS from 1934 to 2020-12-13 Encounter Location Date Provider Diagnosis [facility] Kena BUSTOS [phone] [place] [address] Nov, Brandon Leigh Screening for colon cancer Z12.11 IMMUNIZATIONS Vaccine Route Administration Date Status Influenza Pharmacy Given Unknown Jan 16, 2018 Adminis tered Influenza Pharmacy Given Unknown Jan 23, 2020 Adminis tered COVID-19 dose #1 given elsewhere Unspecified Unknown May 07, 2020 Administered COVID-19 dose #2 given elsewhere Unspecified Unknown May 28, 2020 Administered Pneumococcal Adult 0.5mL Pneumovax 23 SC Subcutaneous Feb 03 13 Administered Pneumococcal 0.5mL Prevnar 13 IM Intramuscular June 15, 2014 A dministered Influenza 18 yrs & older Flublok IM Intramuscular Jan 19, 2019 Administered Influenza 6mo & up Fluzone Unknown Jan 27, 2013 Admin istered Zoster 0.65mL Zostavax Unknown Jan 31, 2012 Administe red Influenza (High Dose 65 & up) Unknown Feb 13, 2017 Ad ministered Influenza (High Dose 65 & up) Unknown Feb 13, 2016 Ad ministered Influenza (High Dose 65 & up) Unknown Jan 13, 2015 Ad ministered Pneumococcal Adult 0.5mL Pneumovax 23 Unknown Feb 06 99 Administered TD Adult 0.5mL Tetanus IM Intramuscular Jan [...] Education Language: Question Answer Notes Languages spoken: Ukrainian Rastafari: Question Answer Notes Rastafari No sikhism beliefs that would impact health care. Domestic [...] tablet Orally Once a day Active Ipratropium [place] 0.06 % 2 sprays in each nostril [...] a day Active PROCEDURES No Information RESULTS Component Value Reference Range Occult Blood, Stool, Immunoassay (iFOB) Reviewed date:12/13/2020 06:56:11 Interpretation: Performing Lab:[facility], [place] [address] Occult Blood, Stool, Immunoassay pos Internal Control Acceptable "line at C" (Y/N) yes Kit Lot# Performed By Comments - REASON FOR VISIT IFOB MEDICAL (GENERAL) HISTORY Type Description Date Medical [...] Wart removed from stomach-additional bio psy done 04/22/17-[facility] RECORDS ANALYST 03/2017 Surgical History ERBT COMPLETED 04/23/2019 [facility] Hospitalization History ER-unable to urinate-[place] cath plac ed 04/23/2013 Hospitalization History Urgent Care-[facility]-Xray left kapadia d 11/10/18 Goals Section No Information Health Concerns No Information MEDICAL EQUIPMENT No Information MENTAL STATUS No Information FUNCTIONAL STATUS No Information ASSESSMENTS Encounter Date Diagnosis Assessment Notes Treatment Notes Treatm ent Clinical Notes Nov, Screening for colon cancer (ICD-10 - Z12.11) PLAN OF TREATMENT Medication Medication Name Sig Start Date Stop Date Flomax 0.4 MG TAKE ONE CAPSULE BY MOUTH EV BENSON DAY AFTER THE SAME MEAL orally Daily Multivitamin Adult - Orally Ipratropium [place] 0.06 % 2 sprays in each nostril [...] Once a day Next Appt Details Provider Name:Brandon Leigh, 2021-02-15 08 :00:00 AM, [address], , [place], [address], Provider Name:Bhavesh Calixto, 09:45:00 AM, [address], , [place], [address], Insurance Providers Payer Name Payer Address Payer Phone Insured Name Patient Relati onship to Insured Coverage Start Date Coverage End Date [phone] TEJA [facility] [id number] CESAR PINEDA self 2013 MEDICARE Part A and B [address] [place] [phone] [phone] CESAR PINEDA self
--- OUTSIDE RECORDS SUMMARY | 2021-02-23 09:34 | CCD | Continuity of Care Document ---
Author Author Reymundo DELGADO MD Organization Unknown Address [address] [address] Phone [phone] Care Team Providers Care Press Writer Name Role Phone AUTM Unavailable Brandon Leigh M.D. AUTM [phone] Problems Active Problems Provider Date Essential hypertension Nestor Delgado JR, MD Onset: 11/29/19 21 Social History Type Date Description Comments Sex Unknown ETOH Use 2-3 A Week BEER Recreational Drug Use Denies Drug Use Tobacco Use Start: Unknown Denies Smoking Allergies, Adverse Reactions, Alerts Description No Known Drug Allergies Medications Active Medications SIG Qnty Indications Ordering Provide r Date Ipratropium [place] 0.06% Solution spray 2 sprays in each nostrils two times a day 15units Andrea wooten MD 11/09/2020 Finasteride 5mg Tablets 1 by [...] 1 tab by mouth every day Unknown History Medications Omeprazole 40mg Capsules DR 1 by mouth every day 30caps Andrea Hernández MD 11/09/2020 - Immunizations Description No Information Available Vital Signs Date Vital Result Comment 11/30/2020 9:55am BP Systolic 164 mmHg BP Diastolic 95 mmHg Heart Rate 97 /min Body Temperature 98.3 F Height 70.5 inches 5'10.50" Weight 172.25 lb BMI (Body Mass Index) 24.4 kg/m2 [place] Body Weight 166 lb Weight 78.133 kg BSA (Body Surface Area) 1.97 m2 11/09/2020 8:18am Height 70.5 inches 5'10.50" Weight 175.00 lb BMI (Body Mass Index) 24.8 kg/m2 [place] Body Weight 166 lb Weight 79.380 kg BSA (Body Surface Area) 1.98 m2 Results Description No Information Available Procedures Date Code Description Status 11/30/2020 08672 Office/Outpatient New Moderate M DM 45-59 Minutes Completed 11/09/2020 33714 Office/Outpatient New Moderate M DM 45-59 Minutes Completed 11/09/2020 48747 Laryngoscopy Flexible Fiberoptic Diagnostic Completed Medical Devices Description No Information Available Encounters Type Date Location Provider Dx Diagnosis Office Visit 11/30/2020 10:00a [facility] Nestor akins JR, MD R10.31 Right lower quadrant pain Z12.11 Encounter for screening for malignant neoplasm of colon Office Visit 11/09/2020 8:30a [facility] Andrea Hernández MD K21.9 Gastro-esophageal reflux disease without esophagitis J31.0 Chronic rhinitis Assessments Date Code Description Provider 11/30/2020 R10.31 Right lower quadrant pain Nestor Delgado JR, MD 11/30/2020 Z12.11 Encounter for screening for bogdan gnant neoplasm of colon Nestor Delgado JR, MD 11/09/2020 K21.9 Gastro-esophageal reflux disease without esophagitis Andrea Hernández MD 11/09/2020 J31.0 Chronic rhinitis Andrea Hernández MD Plan of Treatment Future Appointment(s):* 12/26/2020 7:50 am - Andrea Hernández MD at [facility] 11/30/2020 - Nestor Delgado JR, MD* R10.31 Right lower quadrant pain* New Xrays: * CT Abdomen And Pelvis W/O And W Contrast, Ordered: 11/30/20 * Comments:* Patient's abdominal pain seems as though it's radiating from his back or his hip and I anticipate has nothing to do with his abdomen but obviously given its location along the superior aspect of the iliac crest best option for us at this point is to make sure that there is nothing retroperitoneal in this area causing this discomfort and we can order a CAT scan of the abdomen and pelvis. Does not seem to have any GI association with it and thus I would recommend continuing with his screening colonoscopy as well. He'll contact us after the CAT scan is performed for the results. * Z12.11 Encounter for screening for malignant neoplasm of colon* Comments:* The patient is here for recommendations concerning screening colonoscopy and fits the criteria for screening colonoscopy. And at this point the recommendation i s to proceed with a repeat colonoscopy risks as well as benefits have been discussed with him at length those including but not limited to bleeding infection damage to bowel including perforation and possibly anesthetic complications. Patient understands as well that small lesions/polyps can be missed with increased frequency and is much dependent on colonic prep. The patient agrees to proceed with colonoscopy as recommended. Functional Status Description No Information Available Mental Status Description No Information Available Referrals Refer to Reason for Referral Status Appt Date Too Cummings M.D. Pharyngeal dysphagia, Scheduled [address] [address] [phone]
--- OUTSIDE RECORDS SUMMARY | 2021-02-23 09:34 | CCD | Continuity of Care Document ---
Author Author Ryemundo DELGADO MD Organization Unknown Address [address] [address] Phone [phone] Care Team Providers Care Educational Interpreter Name Role Phone AUTM Unavailable Brandon Leigh M.D. AUTM [phone] Problems Active Problems Provider Date Essential hypertension Nestor Delgado JR, MD Onset: 11/29/19 21 Social History Type Date Description Comments Sex Unknown ETOH Use 2-3 A Week BEER Recreational Drug Use Denies Drug Use Tobacco Use Start: Unknown Denies Smoking Allergies, Adverse Reactions, Alerts Description No Known Drug Allergies Medications Active Medications SIG Qnty Indications Ordering Provide r Date Ipratropium [place] 0.06% Solution spray 2 sprays in [...] lb BMI (Body Mass Index) 24.4 kg/m2 [place] Body Weight 166 lb Weight 78.133 kg BSA (Body Surface Area) 1.97 m2 11/09/2020 8:18am Height 70.5 inches 5'10.50" Weight 175.00 lb BMI (Body Mass Index) 24.8 kg/m2 [place] Body Weight 166 lb Weight 79.380 kg BSA (Body Surface Area) 1.98 m2 Results Description No Information Available Procedures Date Code Description Status 11/09/2020 14520 Office/Outpatient New Moderate M DM 45-59 Minutes Completed 11/09/2020 21473 Laryngoscopy Flexible Fiberoptic Diagnostic Completed Medical Devices Description No Information Available Encounters Type Date Location Provider Dx Diagnosis Office Visit 11/09/2020 8:30a [facility] Andrea Hernández MD K21.9 Gastro-esophageal reflux disease without esophagitis J31.0 Chronic rhinitis Assessments Date Code Description Provider 11/09/2020 K21.9 Gastro-esophageal reflux disease without esophagitis Andrea Hernández MD 11/09/2020 J31.0 Chronic rhinitis Andrea Hernández MD Plan of Treatment Future Appointment(s):* 12/26/2020 7:50 am - Andrea Hernández MD at [facility] 11/09/2020 - Andrea Hernández MD* K21.9 Gastro-esophageal reflux disease without esophagitis * J31.0 Chronic rhinitis * All * New Medication:* Ipratropium [place] 0.06 % - spray 2 sprays in each nostrils two times a day * Omeprazole 40 mg - 1 by mouth every day Functional Status Description No Information Available Mental Status Description No Information Available Referrals Refer to Reason for Referral Status Appt Date Too Cummings M.D. Pharyngeal dysphagia, Scheduled [address] [address] [phone]
--- OUTSIDE RECORDS SUMMARY | 2021-02-23 09:34 | CCD ---
Continuity of Care Document (CCD) Created on: 12/29/2020 Reymunod Flowers External Reference #: [id number] : 1935 Sex: Male Author Author Reymundo HERNÁNDEZ MD Organization Unknown Address [address] [address] Phone [phone] Care Team Providers Care Director Of Guidance Name Role Phone AUTM Unavailable Brandon Leigh M.D. AUTM [phone] Problems Active Problems Provider Date Essential hypertension Nestor Delgado JR, MD Onset: 11/29/19 21 Social History Type Date Description Comments Sex Unknown ETOH Use 2-3 A Week BEER Recreational Drug Use Denies Drug Use Tobacco Use Start: Unknown Denies Smoking Allergies, Adverse Reactions, Alerts Description No Known Drug Allergies Medications Active Medications SIG Qnty Indications Ordering Provide r Date Ipratropium [place] 0.06% Solution spray 2 sprays in each [...] Available Vital Signs Date Vital Result Comment 12/26/2020 7:53am Height 70.5 inches 5'10.50" Weight 172.00 lb BMI (Body Mass Index) 24.3 kg/m2 [place] Body Weight 166 lb Weight 78.019 kg BSA (Body Surface Area) 1.97 m2 11/30/2020 9:55am BP Systolic 164 mmHg BP Diastolic 95 mmHg Heart Rate 97 /min Body Temperature 98.3 F Height 70.5 inches 5'10.50" Weight 172.25 lb BMI (Body Mass Index) 24.4 kg/m2 [place] Body Weight 166 lb Weight 78.133 kg BSA (Body Surface Area) 1.97 m2 Results Test Acquired Date Facility Test Result H/L Range Note BUN & Creatinine ([facility]) 12/07/2020 [facility] [place] [address] [phone] Blood Urea Nitrogen 15 mg/dL Normal 7-18 1 Creatinine With GFR 12/07/2020 [facility] [place] [address] [phone] Creatinine For GFR 1.20 mg/dL Normal 0.70-1.30 Glomerular Filtration Rate > 60.0 Normal >35 2 1 note:<nlbl:demographic_chang ed> 2 Units are mL/min/1.73 m2 Chronic Kidney Disease Staging per NKF: Stage I & II GFR >=60 Normal to Mildly Decreased Stage III GFR 30-59 Moderately Decreased Stage IV GFR 15-29 Severely Decreased Stage V GFR <15 Very Little GFR Left ESRD GFR <15 on 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 PROJECTIONIST Procedures Date Code Description Status 12/26/2020 00351 Office/Outpatient Established SF MDM 10-19 Min Completed 11/30/2020 20792 Office/Outpatient New Moderate M DM 45-59 Minutes Completed 11/09/2020 51244 Office/Outpatient New Moderate M DM 45-59 Minutes Completed 11/09/2020 16988 Laryngoscopy Flexible Fiberoptic Diagnostic Completed Medical Devices Description No Information Available Encounters Type Date Location Provider Dx Diagnosis Office Visit 12/26/2020 7:50a [facility] Andrea Hernández MD K21.9 Gastro-esophageal reflux disease without esophagitis Office Visit 11/30/2020 10:00a [facility] Nestor akins JR, MD R10.31 Right lower quadrant pain Z12.11 Encounter for screening for malignant neoplasm of colon Office Visit 11/09/2020 8:30a [facility] Andrea Hernández MD K21.9 Gastro-esophageal [...] 11:00 am - Andrea Hernández MD at [facility] * 01/02/2021 8:30 am - Nestor Delgado JR, MD at [facility] * 03/08/2021 10:15 am - AJAY Li at [facility] * 02/23/2021 11:35 am - Nestor Delgado JR, MD at [facility] 12/26/2020 - Andrea Hernández MD* K21.9 Gastro-esophageal reflux disease without esophagitis* New Xrays:* Barium Swallow, Esophagram, Scheduled: 01/10/21 Functional Status Description No Information Available Mental Status Description No Information Available Referrals Refer to Reason for Referral Status Appt Date Too Cummings M.D. Pharyngeal dysphagia, Closed [address] [facility] [address] [place] [address] [phone]
--- OUTSIDE RECORDS SUMMARY | 2021-02-23 09:34 | CCD ---
Author Author [facility] Organization [facility] Address Unknown Phone Unavailable Care Team Providers Care Preparation Department Supervisor Name Role Phone Ana Alvarado Unavailable Unavailable Symenow, Ana Flores PA Unavailable Unavailable Symenonioc, Ana Flores PA Unavailable Unavailable Symenow, Ana Flores PA Unavailable Unavailable Symenow, Ana Flores PA Unavailable Unavailable Symenow, Ana Flores PA Unavailable Unavailable Symenow, Ana Flores PA Unavailable Unavailable Symenow, Ana Flores PA Unavailable Unavailable Symenow, Ana Flores PA Unavailable Unavailable Symenow, Ana Flores PA Unavailable Unavailable Symenow, Ana Flores PA Unavailable Unavailable Symenow, Ana Flores PA Unavailable Unavailable Symenow, Ana Flores PA Unavailable Unavailable Symenow, Ana Flores PA Unavailable Unavailable Symenow, Ana Flores PA Unavailable Unavailable Symenow, Ana Flores PA Unavailable Unavailable Symenow, Ana Flores PA Unavailable Unavailable Symenow, Ana Flores PA Unavailable Unavailable Symenow, Ana Flores PA Unavailable Unavailable Symenow, Ana Flores PA Unavailable Unavailable Symenow, Ana Flores PA Unavailable Unavailable Symenow, Ana Flores PA Unavailable Unavailable Symenow, Ana Flores PA Unavailable Unavailable Symenow, Ana Flores PA Unavailable Unavailable Symenow, Ana Flores PA Unavailable Unavailable Symenow, Ana Sandra PA Unavailable Unavailable Symenow, Ana Sandra PA Unavailable Unavailable Symenow, Ana Sandra PA Unavailable Unavailable Symenow, Naa Sandra PA Unavailable Unavailable Symenow, Ana Sandra PA Unavailable Unavailable Symenow, Ana Sandra PA Unavailable Unavailable Symenow, Ana Sandra PA Unavailable Unavailable Symenow, Ana Sandra PA Unavailable Unavailable Symenow, Ana Sandra PA Unavailable Unavailable AvonAndrea MD Unavailable Unavailable AvonAndrea MD Unavailable Unavailable AvonAndrea MD Unavailable Unavailable AvonAndrea MD Unavailable Unavailable AvonAndrea MD Unavailable Unavailable Avon, Andrea BALLESTEROS Unavailable Unavailable AvonAndrea MD Unavailable Unavailable Avon, Andrea BALLESTEROS Unavailable Unavailable AvonAndrea MD Unavailable Unavailable AvonAndrea MD Unavailable Unavailable AvonAndrea MD Unavailable Unavailable AvonAndrea MD Unavailable Unavailable AvonAndrea MD Unavailable Unavailable AvonAndrea MD Unavailable Unavailable AvonAndrea MD Unavailable Unavailable AvonAndrea MD Unavailable Unavailable AvonAndrea MD Unavailable Unavailable AvonAndrea MD Unavailable Unavailable AvonAndrea MD Unavailable Unavailable AvonAndrea MD Unavailable Unavailable AvonAndrea MD Unavailable Unavailable AvonAndrea MD Unavailable Unavailable Avon, Andrea MD Unavailable Unavailable AvonAndrea MD Unavailable Unavailable AvonAndrea MD Unavailable Unavailable AvonAndrea MD Unavailable Unavailable AvonAndrea MD Unavailable Unavailable AvonAndrea MD Unavailable Unavailable AvonAndrea MD Unavailable Unavailable AvonAndrea MD Unavailable Unavailable AvonAndrea MD Unavailable Unavailable ANTECOL, Brenda CELIS MD Unavailable Unavailable ANTECOL, Brenda CELIS MD Unavailable Unavailable ANTECOL, Brenda CELIS MD Unavailable Unavailable ANTECOL, Brenda CELIS MD Unavailable Unavailable ANTECOL, Brenda CELIS MD Unavailable Unavailable ANTECOL, Brenda CELIS MD Unavailable Unavailable ANTECOL, Brenda CELIS MD Unavailable Unavailable ANTECOL, Brenda CELIS MD Unavailable Unavailable ANTECOL, Brenda CELIS MD Unavailable Unavailable ANTECOL, Brenda CELIS MD Unavailable Unavailable ANTECOL, Brenda CELIS MD Unavailable Unavailable ANTECOL, Brenda CELIS MD Unavailable Unavailable ANTECOL, Brenda CELIS MD Unavailable Unavailable ANTECOL, Brenda CELIS MD Unavailable Unavailable ANTECOL, Brenda CELIS MD Unavailable Unavailable ANTECOL, Brenda CELIS MD Unavailable Unavailable ANTECOL, Brenda CELIS MD Unavailable Unavailable ANTECOL, Brenda CELIS MD Unavailable Unavailable ANTECOL, Brenda CELIS MD Unavailable Unavailable ANTECOL, Brenda CELIS MD Unavailable Unavailable ANTECOL, Brenda CELIS MD Unavailable Unavailable ANTECOL, Brenda CELIS MD Unavailable Unavailable ANTECOL, Brenda CELIS MD Unavailable Unavailable ANTECOL, Brenda CELIS MD Unavailable Unavailable ANTECOL, Brenda CELIS MD Unavailable Unavailable ANTECOL, Brenda CELIS MD Unavailable Unavailable ANTECOL, Brenda CELIS MD Unavailable Unavailable ANTECOL, Brenda CELIS MD Unavailable Unavailable ANTECOL, Brenda CELIS MD Unavailable Unavailable ANTECOL, Brenda CELIS MD Unavailable Unavailable ANTECOL, Brenda CELIS MD Unavailable Unavailable ANTECOL, Brenda CELIS MD Unavailable Unavailable ANTECOL, Brenda CELIS MD Unavailable Unavailable ANTECOL, Brenda CELIS MD Unavailable Unavailable ANTECOL, Brenda CELIS MD Unavailable Unavailable ANTECOL, Brenda CELIS MD Unavailable Unavailable ANTECOL, Brenda CELIS MD Unavailable Unavailable ANTECOL, Brenda CELIS MD Unavailable Unavailable ANTECOL, Brenda CELIS MD Unavailable Unavailable ANTECOL, Brenda CELIS MD Unavailable Unavailable ANTECOL, Brenda CELIS MD Unavailable Unavailable ANTECOL, Brenda CELIS MD Unavailable Unavailable ANTECOL, Brenda CELIS MD Unavailable Unavailable ANTECOL, Brenda CELIS MD Unavailable Unavailable ANTECOL, Brenda CELIS MD Unavailable Unavailable ANTECOL, Brenda CELIS MD Unavailable Unavailable ANTECOL, Brenda CELIS MD Unavailable Unavailable ANTECOL, Brenda CELIS MD Unavailable Unavailable ANTECOL, Brenda CELIS MD Unavailable Unavailable ANTECOL, Brenda CELIS MD Unavailable Unavailable ANTECOL, Brenda CELIS MD Unavailable Unavailable ANTECOL, Brenda CELIS MD Unavailable Unavailable ANTECOL, Brenda CELIS MD Unavailable Unavailable ANTECOL, Brenda CELIS MD Unavailable Unavailable Dakota Delgado JR, MD Unavailable Unavailable Dakota Delgado JR, MD Unavailable Unavailable Dakota Delgado JR, MD Unavailable Unavailable Dakota Delgado JR, MD Unavailable Unavailable Dakota Delgado JR, MD Unavailable Unavailable Dakota Delgado JR, MD Unavailable Unavailable Dakota Delgado JR, MD Unavailable Unavailable Dakota Delgado JR, MD Unavailable Unavailable Dakota Delgado JR, MD Unavailable Unavailable Dakota Delgado JR, MD Unavailable Unavailable Dakota Delgado JR, MD Unavailable Unavailable Dakota Delgado JR, MD Unavailable Unavailable Dakota Delgado JR, MD Unavailable Unavailable Dakota Delgado JR, MD Unavailable Unavailable Dakota Delgado JR, MD Unavailable Unavailable Dakota Delgado JR, MD Unavailable Unavailable Dakota Delgado JR, MD Unavailable Unavailable Dakota Delgado JR, MD Unavailable Unavailable Dakota Delgado JR, MD Unavailable Unavailable Dakota Delgado JR, MD Unavailable Unavailable Dakota Delgado JR, MD Unavailable Unavailable Danny JR, J Nestor BALLESTEROS Unavailable Unavailable DannyDakota gonsales JR, MD Unavailable Unavailable DannyDakota gonsales JR, MD Unavailable Unavailable DannyDakota gonsales JR, MD Unavailable Unavailable DannyDakota gonsales JR, MD Unavailable Unavailable Danny JRDakota MD Unavailable Unavailable Danny JR J Nestor Unavailable Unavailable Danny JR J Nestor BALLESTEROS Unavailable Unavailable Danny JR, J Nestor Unavailable Unavailable Danny JR, J Nestor BALLESTEROS Unavailable Unavailable Danny JR, J Nestor BALLESTEROS Unavailable Unavailable Danny JR, J Nestor BALLESTEROS Unavailable Unavailable Danny JR, J Nestor BALLESTEROS Unavailable Unavailable DannyDakota gonsales JR, MD Unavailable Unavailable Danny JR, J Nestor BALLESTEROS Unavailable Unavailable DannyDakota gonsales JR, MD Unavailable Unavailable DannyDakota gonsales JR, MD Unavailable Unavailable DannyDakota gonsales JR, MD Unavailable Unavailable Danny JR, J Nestor BALLESTEROS Unavailable Unavailable DannyDakota gonsales JR, MD Unavailable Unavailable DannyDakota gonsales JR, MD Unavailable Unavailable DannyDakota gonsales JR, MD Unavailable Unavailable DannyDakota gonsales JR, MD Unavailable Unavailable DannyDakota gonsales JR, MD Unavailable Unavailable DannyDakota gonsales JR, MD Unavailable Unavailable DannyDakota gonsales JR, MD Unavailable Unavailable DannyDakota gonsales JR, MD Unavailable Unavailable DannyDakota gonsales JR, MD Unavailable Unavailable DannyDakota gonsales JR, MD Unavailable Unavailable DannyDakota gonsales JR, MD Unavailable Unavailable DannyDakota gonsales JRo Unavailable Unavailable DannyDakota gonsales JR, MD Unavailable Unavailable DannyDakota gonsales JR, MD Unavailable Unavailable Onia, Christopher DO Unavailable Unavailable Walter, Christopher DO Unavailable Unavailable Onia, Christopher DO Unavailable Unavailable Walter, Christopher DO Unavailable Unavailable Onia, Christopher DO Unavailable Unavailable Onia, Christopher DO Unavailable Unavailable Walter, Christopher DO Unavailable Unavailable Walter, Christopher DO Unavailable Unavailable Onia, Christopher DO Unavailable Unavailable Walter, Christopher DO Unavailable Unavailable Re-disclosure Warning The records that you are about to access may contain information from federally-assisted alcohol or drug abuse programs. If such information is present, then the following federally mandated warning applies: This information has been disclosed to you from records protected by federal confidentiality rules (42 CFR part 2). The federal rules prohibit you from making any further disclosure of this information unless further disclosure is expressly permitted by the written consent of the person to whom it pertains or as otherwise permitted by 42 CFR part 2. A general authorization for the release of medical or other information is NOT sufficient for this purpose. The Federal rules restrict any use of the information to criminally investigate or prosecute any alcohol or drug abuse patient.The records that you are about to access may contain highly sensitive health information, the redisclosure of which is protected by Article 27-F of the [facility] Public Health law. If you continue you may have access to information: Regarding HIV / AIDS; Provided by facilities licensed or operated by the [facility] Office of Mental Health; or Provided by the [facility] Office for People With Developmental Disabilities. If such information is present, then the following [facility] mandated warning applies: This information has been disclosed to you from confidential records which are protected by state law. State law prohibits you from making any further disclosure of this information without the specific written consent of the person to whom it pertains, or as otherwise permitted by law. Any unauthorized further disclosure in violation of state law may result in a fine or detention sentence or both. A general authorization for the release of medical or other information is NOT sufficient authorization for further disc losure. Family History Family Member Name Family Member Gender Family Member Status Date o f Status Description Data Source(s) Unknown Unknown Problem MEDENT ([facility]) Unknown Unknown Problem [facility] ([facility] Unknown Unknown Problem [facility] ([facility] [place] Encounters Encounter Providers Location Date Indications Data Source(s ) [place] [address] [address] 02/15/2021 12:00:00 AM EDT eCW1 ([facility]) Outpatient Attender: Andrea Spann/Edgar/Fletcher/Rashaad madrigal 01/31/2021 07:40:00 AM EDT MEDENT ([facility]) Outpatient Attender: Alfredo Amin 01/19/2021 08:00:00 AM EDT MEDENT ([facility] ) [place] [address] [address] 01/10/2021 12:00:00 AM EDT eCW1 ([facility]) Outpatient Attender: Nestor Spann/Avon/Fletcher/Rein dl 01/02/2021 02:15:00 PM EDT MEDENT ([facility]) Outpatient Attender: Andrea Spann/Avon/Fletcher/Reind l 12/26/2020 07:50:00 AM EDT MEDENT ([facility]) Outpatient Attender: Nestor Spann/Avon/Fletcher/Rein dl 11/30/2020 10:00:00 AM EDT MEDENT ([facility]) [place] [address] [address] 11/18/2020 12:00:00 AM EDT eCW1 [facility] [place] [address] [address] 11/18/2020 12:00:00 AM EDT eCW1 ([facility] [place] [address] [address] 11/16/2020 12:00:00 AM EDT eCW1 ([facility]) Outpatient Attender: Sandra MOSS Main Office 11/10/2020 09:45:00 AM EDT MEDENT ([facility]) Outpatient Attender: Andrea Spann/Avon/Fletcher/Reind l 11/09/2020 08:30:00 AM EDT MEDENT ([facility]) [place] [address] [address] 10/27/2020 12:00:00 AM EDT eCW1 ([facility]) Office Visit Attender: VIMAL ORTEGA MD Main Office 10/11/2020 01: 41:00 PM EDT MEDENT ([facility]) [place] [address] [address] 09/20/2020 12:00:00 AM EDT eCW1 ([facility]) Office Visit Attender: VIMAL ORTEGA MD Main Office 09/07/2020 09: 00:00 AM EDT MEDENT ([facility]) Office Visit Attender: VIMAL ORTEGA MD Main Office 08/10/2020 03: 37:00 PM EDT MEDENT ([facility]) [place] [address] [address] 07/21/2020 12:00:00 AM EDT [facility]CW1 [facility] [place] [address] [address] 07/21/2020 12:00:00 AM EDT eCW1 ([facility]) Office Visit Attender: VIMAL ORTEGA MD Main Office 07/12/2020 02: 11:00 PM EDT MEDENT ([facility]) [place] [address] [address] 06/13/2020 12:00:00 AM EST eCW1 ([facility]) Outpatient [address] [address] 06/08/2020 12:00:00 AM EST eCW1 ([facility]) Office Visit Attender: VIMAL ORTEGA MD Main Office 05/31/2020 06: 54:00 AM EST MEDENT ([facility]) Outpatient [address] [facility] [place] [address] 05/18/2020 12:00:00 AM EST eCW1 ([facility]) Outpatient Attender: Sandra MOSS Main Office 05/12/2020 07:45:00 AM EST MEDENT ([facility]) Office Visit Attender: VIMAL ORTEGA MD Main Office 04/19/2020 01: 04:00 PM EST MEDENT ([facility]) Outpatient [address] [facility] [place] [address] 03/22/2020 12:00:00 AM EST eCW1 ([facility]) Office Visit Attender: VIMAL ORTEGA MD Main Office 02/26/2020 02: 27:00 PM EST MEDENT ([facility]) [place] [address] [address] 02/23/2020 12:00:00 AM EST eCW1 ([facility]) [place] [address] [address] 02/09/2020 12:00:00 AM EDT eCW1 ([facility]) [facility] [address] [address] 01/28/2020 12:00:00 AM EDT eCW1 ([facility]) [place] [address] [address] 01/25/2020 12:00:00 AM EDT eCW1 ([facility]) Office Visit Attender: VIMAL ORTEGA MD Main Office 01/18/2020 12: 52:00 PM EDT MEDENT ([facility]) [place] [address] [address] 01/18/2020 12:00:00 AM EDT eCW1 ([facility]) Immunizations Vaccine Date Status Description Data Source(s) COVID-19 VACCINE Moderna 02/07/2021 12:00:00 AM EDT completed [employer] Vaccine Series Complete: YESThis Data wa s Submitted to [facility] Via [employer]. COVID-19 dose #2 given elsewhere Unspecified 05/28/2020 12:0 3:00 PM EST completed eCW1 ([facility]) COVID-19 dose #2 given elsewhere Unspecified 05/28/2020 12:0 3:00 PM EST completed eCW1 ([facility]) COVID-19 dose #2 given elsewhere Unspecified 05/28/2020 12:0 3:00 PM EST completed eCW1 ([facility]) COVID-19 dose #2 given elsewhere Unspecified 05/28/2020 12:0 3:00 PM EST completed eCW1 ([facility]) COVID-19 dose #2 given elsewhere Unspecified 05/28/2020 12:0 3:00 PM EST completed eCW1 ([facility]) COVID-19 dose #2 given elsewhere Unspecified 05/28/2020 12:0 3:00 PM EST completed eCW1 ([facility]) COVID-19 dose #2 given elsewhere Unspecified 05/28/2020 12:0 3:00 PM EST completed eCW1 ([facility]) COVID-19 dose #2 given elsewhere Unspecified 05/28/2020 12:0 3:00 PM EST completed eCW1 ([facility]) COVID-19 dose #2 given elsewhere Unspecified 05/28/2020 12:0 3:00 PM EST completed eCW1 ([facility]) COVID-19 VACCINE Moderna 05/28/2020 12:00:00 AM EST completed [employer] Vaccine Series Complete: YESThis Data wa s Submitted to [facility] Via [employer]. COVID-19 dose #1 given elsewhere Unspecified 05/07/2020 08:3 7:00 AM EST completed eCW1 ([facility]) COVID-19 dose #1 given elsewhere Unspecified 05/07/2020 08:3 7:00 AM EST completed eCW1 ([facility]) COVID-19 dose #1 given elsewhere Unspecified 05/07/2020 08:3 7:00 AM EST completed eCW1 ([facility]) COVID-19 dose #1 given elsewhere Unspecified 05/07/2020 08:3 7:00 AM EST completed eCW1 ([facility]) COVID-19 dose #1 given elsewhere Unspecified 05/07/2020 08:3 7:00 AM EST completed eCW1 ([facility]) COVID-19 dose #1 given elsewhere Unspecified 05/07/2020 08:3 7:00 AM EST completed eCW1 ([facility]) COVID-19 dose #1 given elsewhere Unspecified 05/07/2020 08:3 7:00 AM EST completed eCW1 ([facility]) COVID-19 dose #1 given elsewhere Unspecified 05/07/2020 08:3 7:00 AM EST completed eCW1 ([facility]) COVID-19 dose #1 given elsewhere Unspecified 05/07/2020 08:3 7:00 AM EST completed eCW1 ([facility]) COVID-19(given elsewhere) Unspecified 05/07/2020 08:37:00 AM EST co mpleted eCW1 ([facility]) COVID-19 dose #1 given elsewhere Unspecified 05/07/2020 08:3 7:00 AM EST completed eCW1 ([facility]) COVID-19 VACCINE Moderna 04/30/2020 12:00:00 AM EST completed [employer] Vaccine Series Complete: NOThis Data was Submitted to [facility] Via [employer] IIV3. This is one of two codes replacing CVX 15, which is being retired. 01/23/2020 10:51:00 AM EDT completed eCW1 ([facility]) IIV3. This is one of two codes replacing CVX 15, which is being retired. 01/23/2020 10:51:00 AM EDT completed eCW1 ([facility]) IIV3. This is one of two codes replacing CVX 15, which is being retired. 01/23/2020 10:51:00 AM EDT completed eCW1 ([facility]) IIV3. This is one of two codes replacing CVX 15, which is being retired. 01/23/2020 10:51:00 AM EDT completed eCW1 ([facility]) IIV3. This is one of two codes replacing CVX 15, which is being retired. 01/23/2020 10:51:00 AM EDT completed eCW1 ([facility]) IIV3. This is one of two codes replacing CVX 15, which is being retired. 01/23/2020 10:51:00 AM EDT completed eCW1 ([facility]) IIV3. This is one of two codes replacing CVX 15, which is being retired. 01/23/2020 10:51:00 AM EDT completed eCW1 ([facility]) IIV3. This is one of two codes replacing CVX 15, which is being retired. 01/23/2020 10:51:00 AM EDT completed eCW1 ([facility]) IIV3. This is one of two codes replacing CVX 15, which is being retired. 01/23/2020 10:51:00 AM EDT completed eCW1 ([facility]) IIV3. This is one of two codes replacing CVX 15, which is being retired. 01/23/2020 10:51:00 AM EDT completed eCW1 ([facility]) IIV3. This is one of two codes replacing CVX 15, which is being retired. 01/23/2020 10:51:00 AM EDT completed eCW1 ([facility]) IIV3. This is one of two codes replacing CVX 15, which is being retired. 01/23/2020 10:51:00 AM EDT completed eCW1 ([facility]) IIV3. This is one of two codes replacing CVX 15, which is being retired. 01/23/2020 10:51:00 AM EDT completed eCW1 ([facility]) INFLUENZA VACCINE QUADRIVALENT (65 YR UP)/MF59 C.1/PF 01/14/2020 12:00:00 AM EDT completed [facility] Medications Medication Brand Name Start Date Product Form Dose Route Admi nistrative Instructions Pharmacy Instructions Status Indications Reaction Description Data Source(s) 17 gram/dose 02/09/2021 12:00:00 AM EDT powder 238 USE DIRECTED BY FOR BOWEL PREP USE DIRECTED BY FOR BOWEL PREP SOLD: 02/14/2021 [facility] 5 mg 02/09/2021 12:00:00 AM EDT tablet,delayed release (/EC) 4 TAKE 4 TABLETS BY MOUTH PRIOR TO PROCEDURE PER INSTRUCTIONS TAKE 4 TABLETS BY MOUTH PRIOR TO PROCEDURE PER INSTRUCTIONS SOLD: 02/14/2021 [facility] atorvastatin 10 MG Oral Tablet ATORVASTATIN CALCIUM 02/08/2021 1 2:00:00 AM EDT tablet 90 TAKE ONE TABLET BY MOUTH EVERY D AY TAKE ONE TABLET BY MOUTH EVERY DAY SOLD: 02/14/2021 [facility] Finasteride 5 MG Oral Tablet FINASTERIDE 02/08/2021 12:00:00 AM EDT ta blet 90 TAKE ONE TABLET BY MOUTH EVERY DAY TAKE ONE TABLET BY MOUTH EVERY DAY SOLD: 02/14/2021 [facility] 0.4 mg 02/08/2021 12:00:00 AM EDT capsule 90 TAKE ONE CAPSULE BY MOUTH EVERY DAY AFTER THE SAME MEAL TAKE ONE CAPSULE BY MOUTH EVERY DAY AFTER THE SAME YANY L SOLD: 02/14/2021 [facility] 12 HR Guaifenesin 600 MG Extended Release Oral Tablet [Mucin ex] Mucinex 01/31/2021 12:00:00 AM EDT ORAL active MEDENT ([facility], ) 12 HR Guaifenesin 600 MG Extended Release Oral Tablet Guaife nesin SR 01/31/2021 12:00:00 AM EDT active M EDENT ([facility]) atorvastatin 10 MG Oral Tablet Atorvastatin Calcium 01/20/2021 1 2:00:00 AM EDT ORAL active MEDENT ( [facility]) Omeprazole 40 MG Delayed Release Oral Capsule Omeprazole 01/19/2021 12:00:00 AM EDT ORAL active MEDENT ([facility]) Ipratropium Goree Ipratropium Goree 01/19/2021 12:00:00 AM EDT active MEDENT ([facility]) Levothyroxine Sodium 0.075 MG Oral Tablet Levothyroxine Sodi um 01/19/2021 12:00:00 AM EDT ORAL active M EDENT ([facility]) Docusate Sodium 100 MG Oral Capsule Docusate Sodium 01/19/2021 1 2:00:00 AM EDT ORAL active MEDENT ( [facility]) Losartan Potassium 50 MG Oral Tablet [Cozaar] Cozaar 12:00:00 AM EDT ORAL active MEDENT ( [facility]) 75 mcg 12/13/2020 12:00:00 AM EDT tablet 90 TAKE ONE TABLET BY MOUTH DAILY TAKE ONE TABLET BY MOUTH DAILY SOLD: 12/14/2020 [facility] 0.4 mg 11/10/2020 12:00:00 AM EDT tablet, sublingual 25 PL[address] ONE TABLET UNDER THE TONGUE EVERY 5 MINUTES FOR UP TO 3 DOSES NEEDED FOR CHEST PAIN. IF CHEST PAIN STILL PERSISTS CONTACT [address] ONE TABLET UNDER THE TONGUE EVERY 5 MINUTES FOR UP TO 3 DOSES NEEDED FOR CHEST PAIN. IF CHEST PAIN STILL PERSISTS CONTACT 911 SOLD: 11/10/2020 [facility] 42 mcg (0.06 %) 11/09/2020 12:00:00 AM EDT spray,non-aerosol 15 SPRAY 2 SPRAYS IN EACH NOSTRIL TWO TIMES A DAY SPRAY 2 SPRAYS IN EACH NOSTRIL TWO TIMES A DAY SOLD: 01/13/2021 [facility] 40 mg 11/09/2020 12:00:00 AM EDT capsule,delayed release (DR/EC) 30 TAKE ONE CAPSULE BY MOUTH EVERY DAY TAKE ONE CAPSULE BY MOUTH EVERY DAY SOLD: 02/14/2021 [facility] 42 mcg (0.06 %) 11/09/2020 12:00:00 AM EDT spray,non-aerosol 15 SPRAY 2 SPRAYS IN EACH NOSTRIL TWO TIMES A DAY SPRAY 2 SPRAYS IN EACH NOSTRIL TWO TIMES A DAY SOLD: 11/10/2020 [facility] Omeprazole 40 MG Delayed Release Oral Capsule Omeprazole 11/09/2020 12:00:00 AM EDT ORAL active MEDENT ([facility], ) Ipratropium Goree Ipratropium Goree 11/09/2020 12:00:00 AM EDT active MEDENT ([facility], ) 40 mg 11/09/2020 12:00:00 AM EDT capsule,delayed release (DR/EC) 30 TAKE ONE CAPSULE BY MOUTH EVERY DAY TAKE ONE CAPSULE BY MOUTH EVERY DAY SOLD: 12/09/2020 [facility] 42 mcg (0.06 %) 11/09/2020 12:00:00 AM EDT spray,non-aerosol 15 SPRAY 2 SPRAYS IN EACH NOSTRIL TWO TIMES A DAY SPRAY 2 SPRAYS IN EACH NOSTRIL TWO TIMES A DAY SOLD: 12/12/2020 [facility] 40 mg 11/09/2020 12:00:00 AM EDT capsule,delayed release (DR/EC) 30 TAKE ONE CAPSULE BY MOUTH EVERY DAY TAKE ONE CAPSULE BY MOUTH EVERY DAY SOLD: 11/10/2020 [facility] 0.4 mg 10/19/2020 12:00:00 AM EDT capsule 90 TAKE ONE CAPSULE BY MOUTH ONCE DAILY AFTER THE SAME MEAL TAKE ONE CAPSULE BY MOUTH ONCE DAILY AFT ER THE SAME MEAL SOLD: 10/24/2020 [facility] 0.4 mg 10/19/2020 12:00:00 AM EDT capsule 28 TAKE ONE CAPSULE BY MOUTH ONCE DAILY AFTER THE SAME MEAL TAKE ONE CAPSULE BY MOUTH ONCE DAILY AFT ER THE SAME MEAL SOLD: 01/14/2021 [facility] atorvastatin 10 MG Oral Tablet ATORVASTATIN CALCIUM 10/03/2020 1 2:00:00 AM EDT tablet 28 TAKE ONE TABLET BY MOUTH EVERY D AY TAKE ONE TABLET BY MOUTH EVERY DAY SOLD: 01/14/2021 [facility] atorvastatin 10 MG Oral Tablet ATORVASTATIN CALCIUM 10/03/2020 1 2:00:00 AM EDT tablet 90 TAKE ONE TABLET BY MOUTH EVERY D AY TAKE ONE TABLET BY MOUTH EVERY DAY SOLD: 10/18/2020 [facility] 137 mcg (0.1 %) 08/27/2020 12:00:00 AM EDT aerosol,spray 30 SPRAY TWO SPRAYS IN EACH NOSTRIL TWICE A DAY SPRAY TWO SPRAYS IN EACH NOSTRIL TWICE A DAY SOLD: 09/01/2020 [facility] Finasteride 5 MG Oral Tablet FINASTERIDE 07/21/2020 12:00:00 AM EDT ta blet 90 TAKE ONE TABLET BY MOUTH EVERY DAY TAKE ONE TABLET BY MOUTH EVERY DAY SOLD: 10/26/2020 [facility] Finasteride 5 MG Oral Tablet FINASTERIDE 07/21/2020 12:00:00 AM EDT ta blet 20 TAKE ONE TABLET BY MOUTH EVERY DAY TAKE ONE TABLET BY MOUTH EVERY DAY SOLD: 01/23/2021 [facility] Finasteride 5 MG Oral Tablet FINASTERIDE 07/21/2020 12:00:00 AM EDT ta blet 90 TAKE ONE TABLET BY MOUTH EVERY DAY TAKE ONE TABLET BY MOUTH EVERY DAY SOLD: 07/27/2020 [facility] 75 mcg 06/13/2020 12:00:00 AM EST tablet 90 TAKE ONE TABLET BY MOUTH EVERY DAY TAKE ONE TABLET BY MOUTH EVERY DAY SOLD: 06/16/2020 [facility] 75 mcg 06/13/2020 12:00:00 AM EST tablet 90 TAKE ONE TABLET BY MOUTH EVERY DAY TAKE ONE TABLET BY MOUTH EVERY DAY SOLD: 09/15/2020 [facility] 50 mcg/actuation 06/08/2020 12:00:00 AM EST spray,suspension 16 SPRAY TWO SPRAYS IN EACH NOSTRIL EVERY DAY SPRAY TWO SPRAYS IN EACH NOSTRIL EVERY DAY SOLD: 09/01/2020 [facility] Fluticasone Propionate 50 MCG/ACT Fluticasone Propionate 50 MCG/ACT 06/08/2020 12:00:00 AM EST 2.0 {spray_in_each_nostril} acti ve Fluticasone Propionate 50 MCG/ACT eCW1 ([facility]) 137 mcg (0.1 %) 06/08/2020 12:00:00 AM EST aerosol,spray 30 SPRAY TWO SPRAYS IN EACH NOSTRIL TWICE A DAY SPRAY TWO SPRAYS IN EACH NOSTRIL TWICE A DAY SOLD: 06/08/2020 [facility] Azelastine HCl 0.1 % Azelastine HCl 0.1 % 06/08/2020 12:00:00 AM ES T 2.0 {puff_in_each_nostril} active Azelastin e HCl 0.1 % eCW1 ([facility]) 50 mcg/actuation 06/08/2020 12:00:00 AM EST spray,suspension 16 SPRAY TWO SPRAYS IN EACH NOSTRIL EVERY DAY SPRAY TWO SPRAYS IN EACH NOSTRIL EVERY DAY SOLD: 06/08/2020 [facility] Finasteride 5 MG Oral Tablet FINASTERIDE 04/21/2020 12:00:00 AM EST ta blet 90 TAKE ONE TABLET BY MOUTH EVERY DAY TAKE ONE TABLET BY MOUTH EVERY DAY SOLD: 04/22/2020 [facility] 50 mg 02/08/2020 12:00:00 AM EDT tablet 135 TAKE ONE AND ONE-HALF TABLETS BY MOUTH EVERY DAY TAKE ONE AND ONE-HALF TABLETS BY MOUTH EVERY DAY SOLD: 10/18/2020 [facility] 50 mg 02/08/2020 12:00:00 AM EDT tablet 135 TAKE ONE AND ONE-HALF TABLETS BY MOUTH EVERY DAY TAKE ONE AND ONE-HALF TABLETS BY MOUTH EVERY DAY SOLD: 06/23/2020 [facility] Losartan Potassium 50 MG Oral Tablet [Cozaar] Cozaar 12:00:00 AM EDT active [facility] ( [facility]) 50 mg 02/08/2020 12:00:00 AM EDT tablet 135 TAKE ONE AND ONE-HALF TABLETS BY MOUTH EVERY DAY TAKE ONE AND ONE-HALF TABLETS BY MOUTH EVERY DAY SOLD: 02/11/2020 [facility] 50 mg 02/08/2020 12:00:00 AM EDT tablet 42 TAKE ONE AND ONE-HALF TABLETS BY MOUTH EVERY DAY TAKE ONE AND ONE-HALF TABLETS BY MOUTH EVERY DAY SOLD: 01/14/2021 [facility] 0.4 mg 01/25/2020 12:00:00 AM EDT capsule 90 TAKE ONE CAPSULE BY MOUTH EVERY DAY AFTER THE SAME MEAL TAKE ONE CAPSULE BY MOUTH EVERY DAY AFTE R THE SAME MEAL SOLD: 04/20/2020 [facility] 0.4 mg 01/25/2020 12:00:00 AM EDT capsule 90 TAKE ONE CAPSULE BY MOUTH EVERY DAY AFTER THE SAME MEAL TAKE ONE CAPSULE BY MOUTH EVERY DAY AFTE R THE SAME MEAL SOLD: 01/28/2020 [facility] atorvastatin 10 MG Oral Tablet ATORVASTATIN CALCIUM 01/25/2020 1 2:00:00 AM EDT tablet 90 TAKE ONE TABLET BY MOUTH ONCE DA NORBERTO TAKE ONE TABLET BY MOUTH ONCE DAILY SOLD: 08/02/2020 [facility] atorvastatin 10 MG Oral Tablet ATORVASTATIN CALCIUM 01/25/2020 1 2:00:00 AM EDT tablet 90 TAKE ONE TABLET BY MOUTH ONCE DA NORBERTO TAKE ONE TABLET BY MOUTH ONCE DAILY SOLD: 04/28/2020 [facility] 0.4 mg 01/25/2020 12:00:00 AM EDT capsule 90 TAKE ONE CAPSULE BY MOUTH EVERY DAY AFTER THE SAME MEAL TAKE ONE CAPSULE BY MOUTH EVERY DAY AFTE R THE SAME MEAL SOLD: 07/27/2020 [facility] atorvastatin 10 MG Oral Tablet ATORVASTATIN CALCIUM 01/25/2020 1 2:00:00 AM EDT tablet 90 TAKE ONE TABLET BY MOUTH ONCE DA NORBERTO TAKE ONE TABLET BY MOUTH ONCE DAILY SOLD: 01/28/2020 [facility] Finasteride 5 MG Oral Tablet FINASTERIDE 10/25/2019 12:00:00 AM EDT ta blet 90 TAKE ONE TABLET BY MOUTH EVERY DAY TAKE ONE TABLET BY MOUTH EVERY DAY SOLD: 01/28/2020 [facility] 75 mcg 09/10/2019 12:00:00 AM EDT tablet 90 TAKE ONE TABLET BY MOUTH EVERY DAY TAKE ONE TABLET BY MOUTH EVERY DAY SOLD: 03/14/2020 [facility] 20 mg 08/19/2019 12:00:00 AM EDT capsule,delayed release (DR/EC) 30 TAKE ONE CAPSULE BY MOUTH EVERY DAY NEEDED FOR HEARBURN TAKE ONE CAPSULE BY MOUTH EVERY DAY NEEDED FOR HEARBURN SOLD: 05/25/2020 [facility] 20 mg 08/19/2019 12:00:00 AM EDT capsule,delayed release (DR/EC) 30 TAKE ONE CAPSULE BY MOUTH EVERY DAY NEEDED FOR HEARBURN TAKE ONE CAPSULE BY MOUTH EVERY DAY NEEDED FOR HEARBURN SOLD: 08/11/2020 [facility] Insurance Providers Payer name Policy type / Coverage type Policy ID Covered green party ID Covered green party's relationship to high Policy High Plan Information MEDICARE [id number] SP [id number] Medicare (Part B) Medicare Primary [id number] Self [id number] Medicare (Part B) Medicare Primary [id number] Self [id number] MEDICARE [id number] SP [id number] A Medicare (Part B) Medicare Primary [id number] Self [id number] Medicare (Part B) Medicare Primary [id number] Self Medicare Medicare Primary [id number] Self Medicare (Part B) Medicare Primary [id number] Self [id number] A [id number] [place] Medig[place] B [id number] Self [id number] [place] Med[place] [id number] Self Y [id number] [place] Med[place] B [id number] Self [place] Med[place] [id number] Self Y [id number] [place] Medig[place] B [id number] Self Y [id number] Excellus Classic Blue Secure Medigap Part B [id number] Self V [id number] Excellus Classic Blue Secure Medigap Part B [id number] Self V [id number] Excellus Classic Blue Secure Medigap Part B [id number] Self V [id number] Excell[employer] Classic Blue Secure Medigap Part B [id number] Self V [id number] Excellus Classic Blue Secure Medigap Part B [id number] Self BCBS Excellus Ppo U/W Medigap Part B [id number] Self BC/[place] Medigap Part B [id number] Self BCBS Excellus Ppo U/W Medigap Part B [id number] Self V [id number] BCBS Excell[place] U/W Medigap Part B [id number] Self V [id number] [place] 306/806 [id number] SP [id number] [place] Med[place] [id number] Self [id number] EXCELLUS BC-BS PPO 306 [id number] SP [id number] [place] [id number] Self [place] PPO 302/307 [id number] SP [id number] [place] [id number] Self [id number] [place] [id number] Self [id number] [place]BS [place] PPO 302/307 [id number] SP [id number] [place] P[place] 302/307 [id number] SP [id number] BCBS EMPIRE SARI DIV UNAVAILABLE UNAVAILABLE SELF PAY UNAVAILABLE SP UNAVAILA BLE MEDICARE BLUE PPO 306 [id number] SP [id number] EXCELL[place] BCBS S [id number] S [id number] MEDICARE P [id number] S [id number] A ACTIVE DUTY [id number] SP [id number] BCBS [place] 304/804 [id number] SP [id number] Medicare Medicare Primary [id number] Self [id number] MEDICARE [id number] SP [id number] [place] 306/806 [id number] SP [id number] [place]BS [place] PPO 302/307 [id number] SP [id number] [place] 306/806 [id number] SP [id number] [place] BCBS B [id number] S [id number] MEDICARE C [id number] S [id number] MEDICARE [id number] SP [id number] SELF PAY ONLY [id number] SP [id number] MEDICARE [id number] SP [id number] BCBS [place] PPO 302/307 [id number] SP [id number] ANSI-Commercial [id number] ANSI-Medicare Part B [id number] ANSI-Commercial [id number] Medicare Blue Ppo/Hmo Commercial [id number] Self [id number] Medicare Natl Gov't Servi Medicare Primary [id number] Self [id number] ANSI-Commercial [id number] ANSI-Medicare Part B [id number] ANSI-Commercial [id number] Medicare (Part B) Medicare Primary [id number] Self 1 [id number] Medicare (Part B) Medicare Primary [id number] Self 1 [id number] ANSI-Medicare Part B [id number] ANSI-Commercial [id number] ANSI-Commercial [id number] ANSI-Medicare Part B [id number] ANSI-Commercial [id number] ANSI-Commercial [id number] Medicare Medicare Primary [id number] Self [id number] MEDICARE [id number] A [place] PPO 302/307 [id number] SP [id number] Medicare Medicare Primary [id number] Self [id number] Medicare Medicare Primary [id number] Self Problems, Conditions, and Diagnoses Code Display Name Description Problem Type Effective Dates Data Source(s) I25.10 Coronary arteriosclerosis Coronary arteriosclerosis Pr oblem 01/19/2021 12:00:00 AM EDT [facility] ([facility]) J30.9 Allergic rhinitis Allergic rhinitis Problem 01/19/2021 12:00:00 AM EDT [facility] ([facility]) K59.00 Constipation Constipation Problem 01/19/2021 12:00:00 A M EDT [facility] ([facility]) Z00.00 Adult health examination Adult health examination Prob kenrick 01/19/2021 12:00:00 AM EDT [facility] ([facility]) E03.9 Hypothyroidism Hypothyroidism Problem 01/19/2021 12:00: 00 AM EDT [facility] ([facility]) I10 Essential hypertension Essential hypertension Problem 01/19/2021 12:00:00 AM EDT [facility] ([facility]) [id number] Essential hypertension Essential hypertension Problem 11/28/2020 12:00:00 AM EDT [facility] ([facility] ) R13.13 [id number] Pharyngeal dysphagia Problem 10/27/2020 12:00:00 AM EDT eCW1 ([facility]) R35.1 Nocturia Nocturia Problem 09/20/2020 12:00:00 AM ED T eCW1 ([facility]) E03.9 Acquired hypothyroidism Acquired hypothyroidism Proble m 07/21/2020 12:00:00 AM EDT eCW1 ([facility]) M51.9 [id number] Lumbar disc disease Problem 05/18/2020 12:00 :00 AM EST eCW1 ([facility]) N40.0 Benign prostatic hyperplasia BPH (benign prostatic hyp erplasia) Problem 03/22/2020 12:00:00 AM EST eCW1 ([facility]) G89.29 [id number] Other chronic pain Problem 02/23/2020 12:00: 00 AM EST eCW1 ([facility]) M47.812 [id number] Cervical spondylosis Problem 02/23/2020 12:0 0:00 AM EST eCW1 ([facility]) Surgeries/Procedures Procedure Description Date Indications Data Source(s) OFFICE OUTPATIENT VISIT 15 MINUTES 01/31/2021 12:00:00 AM EDT [facility] ([facility] ) ECG ROUTINE ECG W/LEAST 12 LDS W/I&R 01/19/2021 12:00: 00 AM EDT [facility] ([facility]) OFFICE OUTPATIENT NEW 45 MINUTES 01/19/2021 12:00:00 A M EDT [facility] ([facility]) OFFICE OUTPATIENT VISIT 15 MINUTES 01/02/2021 12:00:00 AM EDT [facility] ([facility]) OFFICE OUTPATIENT VISIT 10 MINUTES 12/26/2020 12:00:00 AM EDT [facility] ([facility]) OFFICE OUTPATIENT NEW 45 MINUTES 11/30/2020 12:00:00 A M EDT [facility]) ECG ROUTINE ECG W/LEAST 12 LDS W/I&R 11/10/2020 12:00: 00 AM EDT [facility] ([facility]) OFFICE OUTPATIENT VISIT 25 MINUTES 11/10/2020 12:00:00 AM EDT [facility] ([facility]) LARYNGOSCOPY FLEXIBLE FIBEROPTIC DIAGNOSTIC 11/09/2020 12:00:00 AM EDT [facility] ([facility]) OFFICE OUTPATIENT NEW 45 MINUTES 11/09/2020 12:00:00 A M EDT [facility] ([facility]) Chronic Care MGMT 20 Mins Clinical Staff Time Per Calendar M [facility] 10/11/2020 12:00:00 AM EDT [facility] ([facility]) Chronic Care MGMT 20 Mins Clinical Staff Time Per Calendar M [facility] 09/07/2020 12:00:00 AM EDT [facility] ([facility]) Chronic Care MGMT 20 Mins Clinical Staff Time Per Calendar M [facility] 08/10/2020 12:00:00 AM EDT [facility] ([facility]) PC-INTERPRETATION AND REPORT 07/21/2020 12:00:00 AM ED T eCW1 ([facility]) FC-ELECTROCARDIOGRAM, TRACING ONLY 07/21/2020 12:00:00 AM EDT eCW1 ([facility]) Chronic Care MGMT 20 Mins Clinical Staff Time Per Calendar M [facility] 07/12/2020 12:00:00 AM EDT [facility] ([facility]) Chronic Care MGMT 20 Mins Clinical Staff Time Per Calendar M [facility] 05/31/2020 12:00:00 AM EST [facility] ([facility]) ECG ROUTINE ECG W/LEAST 12 LDS W/I&R 05/12/2020 12:00: 00 AM EST [facility] ([facility]) OFFICE OUTPATIENT VISIT 25 MINUTES 05/12/2020 12:00:00 AM EST [facility] ([facility]) Chronic Care MGMT 20 Mins Clinical Staff Time Per Calendar M [facility] 04/19/2020 12:00:00 AM EST [facility] ([facility]) MYOCARDIAL SPECT MULTIPLE STUDIES 02/16/2020 12:00:00 AM EST [facility] ([facility]) CV STRS TST XERS&/OR RX CONT ECG PHYS SI&R 02/16/2020 12:00:00 AM EST [facility] ([facility]) Results ID Date Data Source [id number] 02/18/2021 09:40:00 AM EDT [facility]) Name Value Range Interpretation Code Description Data Pita rce(s) Supporting Document(s) Coronavirus 2019 Nasopharygeal Laboratory test result [facility] ([facility]) ASSAY INFORMATION: Real Time RT-PCR NOTE: The COVID-19 assay has been cleared by the U.S. Food and Drug Administration under the Emergency Use Authorization (EUA). [facility] are designated as high complexity laboratories by the Clinical Laboratory Improvement Amendments of 1988(CLIA) and are qualified to perform this test. Not Detected ID Date Data Source [id number] 01/19/2021 08:47:00 AM EDT [facility] ([facility]) Name Value Range Interpretation Code Description Data Pita rce(s) Supporting Document(s) Thyrotropin [Units/volume] in Serum or Plasma by Detec tion limit <= 0.05 mIU/L 0.38 uIU/mL 0.36-3.74 [facility] ID Date Data Source [id number] 01/19/2021 08:47:00 AM EDT [facility] Name Value Range Interpretation Code Description Data Pita rce(s) Supporting Document(s) Prostate specific Ag [Mass/volume] in Serum or Plasma Laboratory test result [facility] ([facility]) This assay was performed on the Siemens Dimension EXL using the B- Galactosidase/CPRG methodology and should not be compared interchangeably with other methods. The PSA should not be used alone as a screening test for the presence or absence of malignant disease. ID Date Data Source [id number] 01/19/2021 08:47:00 AM EDT [facility] ([facility]) Name Value Range Interpretation Code Description Data Pita rce(s) Supporting Document(s) Cholesterol [Mass/volume] in Serum or Plasma 133 mg/dL 131-200 [facility] ([facility]) Triglyceride [Mass/volume] in Serum or Plasma 57 mg/dL 30-150 [facility] ([facility]) Cholesterol in LDL [Mass/volume] in Serum or Plasma by calcu lation 61 CALC 50-159 [facility] Cholesterol in HDL [Mass/volume] in Serum or Plasma 61 mg/dL 35-60 [facility] ([facility]) ID Date Data Source [id number] 01/19/2021 08:47:00 AM EDT [facility] Name Value Range Interpretation Code Description Data Pita rce(s) Supporting Document(s) Glucose [Mass/volume] in Serum or Plasma 102 mg/dL 74-99 [facility] ([facility]) 100-125 mg/dL PRE-DIABETES/FASTING >126 mg/dL DIABETES/FASTING Urea nitrogen [Mass/volume] in Serum or Plasma 17 mg/dL 7-18 [facility]) Sodium [Moles/volume] in Serum or Plasma 142 meq/L 136-145 [facility]) Creatinine 1.4 mg/dL 0.6-1.3 [facility] ([facility]) Carbon dioxide, total [Moles/volume] in Serum or Plasma 33 meq/L 21 -32 [facility] ([facility]) Chloride [Moles/volume] in Serum or Plasma 104 meq/L 98-107 [facility] ([facility]) Potassium [Moles/volume] in Serum or Plasma 4.2 meq/L 3.5-5.1 [facility] ([facility]) Calcium [Mass/volume] in Serum or Plasma 9.6 mg/dL 8.5-10.1 [facility] ([facility]) Alkaline phosphatase isoenzyme [Units/volume] in Serum or Pl asma 77 mg/dL 46-116 [facility] ([facility]) Total Bilirubin 0.6 mg/dL 0.2-1.0 [facility] ([facility]) Aspartate aminotransferase [Enzymatic activity/volume] in Serum or Plasma 23 U/L 15-37 [facility] ([facility] ) Albumin [Mass/volume] in Serum or Plasma 4.1 g/dL 3.4-5.0 [facility] ([facility]) Alanine aminotransferase [Enzymatic activity/volume] in Seru m or Plasma 24 U/L 12-78 [facility] ([facility]) Proteinase 3 Ab [Units/volume] in Serum 7.4 g/dL 6.4-8.2 [facility] ([facility] Glomerular filtration rate/1.73 sq M pre dicted among non-blacks [Volume Rate/Area] in Serum or Plasma by Creatinine-based formula (MDRD) 48 mL/min [facility] ([facility]) A/G Ratio 1.24 CALC 1.00-1.90 [facility]) Glomerular filtration rate/1.73 sq M pre dicted among blacks [Volume Rate/Area] in Serum or Plasma by Creatinine-based formula (MDRD) 58 mL/min [facility]) <content>CHRONIC KIDNEY DISEASE STAGING PER NKF</content>
<content></content>
<content>STAGE I & II GFR >= 60 NORMAL TO MILDLY DECREASED</content>
<content>STAGE III GFR 30-59 MODERATELY DECREASED</content>
<content>STAGE IV GFR 15-29 SEVERELY DECREASED</content>
<content>STAGE V GFR <15 VERY LITTLE GFR LEFT</content>
<content>ESRD GFR <15 ON HISTORIAN DRAMATIC ARTS</content>
<content></content> ID Date Data Source [id number] 01/19/2021 08:47:00 AM EDT [facility] ([facility]) Name Value Range Interpretation Code Description Data Pita rce(s) Supporting Document(s) Erythrocytes [#/volume] in Blood by Automated count 4.49 x10*6/UL 4.2 0-6.30 [facility] ([facility]) Leukocytes [#/volume] in Blood by Automated count 4.3 x10*3/UL 4.1-10 .9 [facility] ([facility] MCV 94.6 fL 80.0-97.0 [facility] ([facility]) Hematocrit [Volume Fraction] of Blood by Automated count 42.5 % 3 7.0-51.0 [facility] ([facility] Hemoglobin [Mass/volume] in Blood 14.4 g/dL 12.0-18.0 [facility] ([facility]) MCHC 33.8 g/dL 31.0-38.0 [facility] ([facility]) Erythrocyte distribution width [Ratio] by Automated count 14.0 % 11.6-13.7 [facility] ([facility]) MCH 32.0 pg 26.0-32.0 [facility] ([facility]) Lymph % 16.1 % 10.0-58.5 [facility] ([facility]) Platelets [#/volume] in Blood by Automated count 172 x10*3/UL 140-440 [facility] ([facility]) MPV 9.0 FL 7.8-11.0 [facility] ([facility]) Lymph # 0.6 x10*3/UL 0.6-4.1 [facility] ([facility]) Mid % 4.7 % 1.7-9.3 [facility] Neut % 79.2 % 37.0-92.0 [facility] ([facility]) Neut # 3.4 x10*3/UL 2.0-7.8 [facility] ([facility]) Mid # 0.3 x10*3/UL 0.1-0.6 [facility] ([facility]) ID Date Data Source Occult Blood, Stool, Immunoassay (iFOB) 12/13/2020 12:00:00 AM EDT [facility] ([facility]) Name Value Range Interpretation Code Description Data Pita rce(s) Supporting Document(s) Hemoglobin.gastrointestinal [Presence] in Stool by Immunologic meth od pos Occult Blood, Stool, Immunoassay [facility] ([facility]) yes Internal Control Acceptab le "line at C" (Y/N) [facility] ([facility]) Comments [facility] ([facility]) Kit Lot# [id number] ([facility]) Performed By [facility] (Critical access hospital) - [facility] ([facility]) ID Date Data Source [id number] 12/07/2020 09:12:00 AM EDT [facility] [facility] Name Value Range Interpretation Code Description Data Pita rce(s) Supporting Document(s) Glomerular Filtration Rate Laboratory test result Normal (applies to non- numeric results) [facility] ([facility], ) <content>Units are mL/min/1.73 m2</content>
<content></content>
<content>Chronic Kidney Disease Staging per NKF:</content>
<content></content>
<content>Stage I & II GFR >=60 Normal to Mildly Decreased</content>
<content>Stage III GFR 30- 59 Moderately Decreased</content>
<content>Stage IV GFR 15-29 Severely Decreased</content>
<content>Stage V GFR <15 Very Little GFR Left</content>
<content>ESRD GFR <15 on HISTORIAN DRAMATIC ARTS</content>
<content></content> Creatinine For GFR 1.20 mg/dL 0.70-1.30 Normal (applies to non -numeric results) [facility] ([facility]) ID Date Data Source [id number] 12/07/2020 09:12:00 AM EDT [facility] ([facility]) Name Value Range Interpretation Code Description Data Pita rce(s) Supporting Document(s) Urea nitrogen [Mass/volume] in Serum or Plasma 15 mg/dL 7 -18 Normal (applies to non-numeric results) [facility] ([facility]) <content>note:<nlbl:demographic_changed> </content>
<content></content> ID Date Data Source [id number] 11/24/2020 12:00:00 AM EDT [facility] Name Value Range Interpretation Code Description Data Pita rce(s) Supporting Document(s) SARS-CoV2 Rapid Antigen Negative [facility] This lab was reported by [facility]. ID Date Data Source [id number] 07/21/2020 10:13:00 AM EDT [facility] ([facility] Name Value Range Interpretation Code Description Data Pita rce(s) Supporting Document(s) Troponin Laboratory test result [facility] ([facility]) ID Date Data Source [id number] 07/21/2020 10:13:00 AM EDT [facility] ([facility] Name Value Range Interpretation Code Description Data Pita rce(s) Supporting Document(s) CPK-MB Laboratory test result [facility] ([facility]) Creatine kinase [Enzymatic activity/volume] in Serum or Plasma 107 41-270 [facility] ([facility]) MB/CK Relative Laboratory test result [facility] ([facility]) ID Date Data Source [id number] 07/21/2020 10:13:00 AM EDT [facility] ([facility]) Name Value Range Interpretation Code Description Data Pita rce(s) Supporting Document(s) Calcium [Mass/volume] in Serum or Plasma 9.7 [facility] ([facility]) Sodium 138 [facility] ([facility]) Carbon dioxide, total [Moles/volume] in Serum or Plasma 32 [facility] ([facility]) Potassium [Moles/volume] in Serum or Plasma 5.0 [facility] ([facility]) Chloride [Moles/volume] in Serum or Plasma 103 [facility] ([facility]) Glucose 100 70-100 [facility] ([facility] Blood Urea Nitrogen 17 5-21 [facility] ([facility]) Creatinine 1.27 0.6-1.5 [facility] ([facility]) Glomerular filtration rate/1.73 sq M.pre dicted [Volume Rate/Area] in Serum or Plasma by Creatinine-based formula (MDRD) 57.4 [facility] ([facility]) ID Date Data Source [id number] 07/21/2020 10:13:00 AM EDT [facility] ([facility]) Name Value Range Interpretation Code Description Data Pita rce(s) Supporting Document(s) White Blood Count 5.0 4.3-10.9 [facility] ([facility]) Red Blood Count 3.97 4.70-6.20 [facility] ([facility]) Platelets 155 130-400 [facility] ([facility] Hematocrit 39.9 39.0-50.0 [facility] ([facility]) Hemoglobin 14.3 13.0-17.0 [facility] ([facility]) ID Date Data Source Basic Metabolic Profile (BMP) 07/21/2020 12:00:00 AM EDT eCW 1 ([facility]) Name Value Range Interpretation Code Description Data Pita rce(s) Supporting Document(s) 100 70-100 GLUCOSE, FASTING eCW1 ([facility]) 17 7-18 BLOOD UREA NITROGEN eCW1 ([facility]) 57.4 >35 GLOMERULAR FILTRATION RATE eCW 1 ([facility]) 1.27 0.70-1.30 CREATININE FOR GFR eCW1 ([facility]) 138 136-145 SODIUM LEVEL eCW1 ([facility] access hospital) 103 98-107 CHLORIDE LEVEL eCW1 ([facility]) 5.0 3.5-5.1 POTASSIUM SERUM eCW1 ([facility]) 32 21-32 CARBON DIOXIDE LEVEL eCW1 ([facility]) 9.7 8.8-10.2 CALCIUM LEVEL eCW1 ([facility]) ID Date Data Source CBC with Auto Differential 07/21/2020 12:00:00 AM EDT eCW1 ( [facility]) Name Value Range Interpretation Code Description Data Pita rce(s) Supporting Document(s) 14.3 13.5-17.5 HEMOGLOBIN eCW1 ([facility]) 5.0 4.0-10.0 WHITE BLOOD COUNT eCW1 ([facility]) 3.97 4.30-6.10 RED BLOOD COUNT eCW1 ([facility]) 39.9 42.0-52.0 HEMATOCRIT eCW1 ([facility]) 100.5 80.0-96.0 MEAN CORPUSCULAR VOLUME e CW1 ([facility]) 36.0 27.0-33.0 MEAN CORPUSCULAR HEMOGLOB IN eCW1 ([facility]) 35.8 32.0-36.5 MEAN CORPUSCULAR HGB CONC eCW1 ([facility]) 155 150-450 PLATELET COUNT, AUTOMATED eCW1 ([facility]) 13.9 11.5-14.5 RED CELL DISTRIBUTION WID TH eCW1 ([facility]) 15.6 24.0-44.0 LYMPH % eCW1 ([facility]) 14.2 2.0-8.0 MONO % eCW1 ([facility]) 67.0 36.0-66.0 NEUTROPHILS % eCW1 ([facility]) 2.4 0.0-3.0 EOS % eCW1 ([facility]) 0.6 0.0-1.0 BASO % eCW1 ([facility]) 0.2 0-3.0 IMMATURE GRANULOCYTE % eCW1 ([facility]) 0.8 1.5-5.0 LYMPH # eCW1 ([facility]) 3.4 1.5-8.5 NEUTROPHILS # eCW1 ([facility]) 0.0 0-0 NUCLEATED RED BLOOD CELL % eCW 1 ([facility]) 0.1 0.0-0.5 EOS # eCW1 ([facility]) 0.7 0.0-0.8 MONO # eCW1 ([facility]) 0.0 0.0-0.2 BASO # eCW1 ([facility]) ID Date Data Source TROPONIN I 07/21/2020 12:00:00 AM EDT eCW1 ([facility]) Name Value Range Interpretation Code Description Data Pita rce(s) Supporting Document(s) < 0.02 < 0.10 TROPONIN I eCW1 ([facility]) ID Date Data Source FREE T4 & TSH PANEL 07/21/2020 12:00:00 AM EDT eCW1 ([facility]) Name Value Range Interpretation Code Description Data Pita rce(s) Supporting Document(s) 0.467 0.358-3.740 THYROID STIMULATING HORM ONE eCW1 ([facility]) 1.19 0.76-1.46 FREE T4 eCW1 ([facility]) ID Date Data Source CPK CREATINE PHOSPHOKINASE 07/21/2020 12:00:00 AM EDT eCW1 ( [facility]) Name Value Range Interpretation Code Description Data Ptia rce(s) Supporting Document(s) 107 39-308 CPK CREATINE PHOSPHOKINASE eCW 1 ([facility]) ID Date Data Source [id number] 02/03/2020 03:38:00 PM EDT [facility] ([facility] Name Value Range Interpretation Code Description Data Pita rce(s) Supporting Document(s) Troponin Laboratory test result [facility] ([facility]) ID Date Data Source [id number] 02/03/2020 03:38:00 PM EDT [facility] ([facility]) Name Value Range Interpretation Code Description Data Pita rce(s) Supporting Document(s) White Blood Count 5.1 4.0-10.0 [facility] ([facility]) Red Blood Count 4.59 4.30-6.10 [facility] ([facility]) Hemoglobin 14.7 [facility] ([facility]) Platelets 156 150-450 [facility] ([facility]) Hematocrit 44.5 [facility] ([facility]) ID Date Data Source [id number] 02/03/2020 03:38:00 PM EDT [facility] ([facility]) Name Value Range Interpretation Code Description Data Pita rce(s) Supporting Document(s) Alkaline phosphatase [Enzymatic activity/volume] in Serum or Plasma 9 4 [facility] ([facility]) Aspartate aminotransferase [Enzymatic activity/volume] in Serum or Plasma 19 [facility] ([facility]) Bilirubin.total [Mass/volume] in Serum or Plasma 0.6 [facility] ([facility]) Alanine aminotransferase [Enzymatic activity/volume] in Serum or Pl asma 23 [facility] ([facility]) Protein [Mass/volume] in Serum or Plasma 7.7 [facility] ([facility]) Bilirubin.direct [Mass/volume] in Serum or Plasma 0.2 [facility] ([facility]) Albumin [Mass/volume] in Serum or Plasma 4.1 [facility] ([facility]) Cholesterol [Mass/volume] in Serum or Plasma 1.1 [facility] ([facility]) Procedure Social History Code Duration Value Status Description Data Source(s ) Smoking 01/11/2021 12:00:00 AM EDT Never Smoker completed Never S moker eCW1 ([facility]) Smoking 11/16/2020 12:00:00 AM EDT Never Smoker completed Never S moker eCW1 ([facility]) Smoking 11/16/2020 12:00:00 AM EDT Never Smoker completed Never S moker eCW1 ([facility]) Smoking 11/16/2020 12:00:00 AM EDT Never Smoker completed Never S moker eCW1 ([facility]) Smoking 11/16/2020 12:00:00 AM EDT Never Smoker completed Never S moker eCW1 ([facility]) Smoking 11/10/2020 12:00:00 AM EDT Patient has never smoked co mpleted Patient has never smoked [facility] ([facility]) Smoking 09/20/2020 12:00:00 AM EDT Never Smoker completed Never S moker eCW1 ([facility]) Smoking 09/20/2020 12:00:00 AM EDT Never Smoker completed Never S moker eCW1 ([facility]) Smoking 07/21/2020 12:00:00 AM EDT Never Smoker completed Never S moker eCW1 ([facility]) Smoking 07/21/2020 12:00:00 AM EDT Never Smoker completed Never S moker eCW1 ([facility]) Smoking 06/08/2020 12:00:00 AM EST Never Smoker completed Never S moker eCW1 ([facility]) Smoking 05/18/2020 12:00:00 AM EST Never Smoker completed Never S moker eCW1 ([facility]) Smoking 05/18/2020 12:00:00 AM EST Never Smoker completed Never S moker eCW1 ([facility]) Smoking 02/23/2020 12:00:00 AM EST Never Smoker completed Never S moker eCW1 ([facility]) Smoking 02/23/2020 12:00:00 AM EST Never Smoker completed Never S moker eCW1 ([facility]) Vital Signs ID Date Data Source UNK Name Value Range Interpretation Code Description Data Source(s) Wisdom body weight 166 [lb_av] 166 [lb_av] MEDEN T ([facility]) Body weight 78.926 kg 78.926 kg [facility] ([facility]) Body height 70.5 [in_i] 70.5 [in_i] [facility] ([facility]) 5'10.50" Body weight 174.00 [lb_av] 174.00 [lb_av] MEDEN T ([facility]) Body mass index (BMI) [Ratio] 24.6 kg/m2 24.6 k g/m2 [facility] Body surface area Derived from formula 1.98 m2 1.98 m2 [facility] ([facility]) Body mass index (BMI) [Ratio] 25.0 kg/m2 25.0 k g/m2 [facility] ([facility]) Body weight 174.00 [lb_av] 174.00 [lb_av] MEDEN T ([facility]) Systolic blood pressure 124 mm[Hg] 124 mm[Hg] M EDENT ([facility]) Diastolic blood pressure 70 mm[Hg] 70 mm[Hg] [facility] ([facility]) Heart rate 60 /min 60 /min [facility] ([facility]) Body height 70 [in_i] 70 [in_i] [facility] ([facility]) 5'10" Body weight 77.792 kg 77.792 kg [facility] ([facility]) Systolic blood pressure 147 mm[Hg] 147 mm[facility]Hg] [facility] Diastolic blood pressure 83 mm[Hg] 83 mm[Hg] [facility] ([facility]) Heart rate 73 /min 73 /min [facility] ([facility]) Body temperature 98.6 [degF] 98.6 [degF] [facility] ([facility]) Body height 70.5 [in_i] 70.5 [in_i] [facility] ([facility]) 5'10.50" Body weight 171.50 [lb_av] 171.50 [lb_av] MEDEN T ([facility]) Body mass index (BMI) [Ratio] 24.3 kg/m2 24.3 k g/m2 [facility] ([facility]) Wisdom body weight 166 [lb_av] 166 [lb_av] MED[facility] T ([facility]) Body surface area Derived from formula 1.97 m2 1.97 m2 [facility] ([facility]) Body height 70.5 [in_i] 70.5 [in_i] [facility] ([facility]) 5'10.50" Body mass index (BMI) [Ratio] 24.3 kg/m2 24.3 k g/m2 [facility] ([facility]) Wisdom body weight 166 [lb_av] 166 [lb_av] MED[facility] T ([facility]) Body weight 172.00 [lb_av] 172.00 [lb_av] MED[facility] T ([facility]) Body weight 78.019 kg 78.019 kg [facility] ([facility]) Body surface area Derived from formula 1.97 m2 1.97 m2 [facility] ([facility]) Body height 70.5 [in_i] 70.5 [[facility]_i] [facility] 5'10.50" Wisdom body weight 166 [lb_av] 166 [lb_av] MED[facility] T ([facility]) Body weight 78.133 kg 78.133 [facility] Body weight 172.25 [lb_av] 172.25 [lb_av] [facility] T ([facility]) Body mass index (BMI) [Ratio] 24.4 kg/m2 24.4 k g/m2 [facility] ([facility]) Body surface area Derived from formula 1.97 m2 1.97 m2 [facility] ([facility]) Systolic blood pressure 164 mm[Hg] 164 mm[Hg] M EDENT ([facility]) Diastolic blood pressure 95 mm[Hg] 95 mm[Hg] [facility] ([facility]) Heart rate 97 /min 97 /min [facility] ([facility]) Body temperature 98.3 [degF] 98.3 [degF] [facility] ([facility]) Body weight 176 [lb_av] 176 [lb_av] eCW1 ([facility]) Systolic blood pressure 142 mm[Hg] 142 mm[Hg] e CW1 ([facility]) Body height 69 [in_i] 69 [in_i] eCW1 ([facility]) Diastolic blood pressure 88 mm[Hg] 88 mm[Hg] eCW1 ([facility]) Body mass index (BMI) [Ratio] 25.99 kg/m2 25.99 kg/m2 [facility] ([facility]) Heart rate 82 /min 82 /min eCW1 ([facility]) Respiratory rate 18 /min 18 /min eCW1 ([facility]) Body temperature 97.8 [degF] 97.8 [degF] eCW1 ( [facility]) Body weight 173.00 [lb_av] 173.00 [lb_av] MEDEN T ([facility]) Body height 71 [in_i] 71 [in_i] [facility] ([facility]) 5'11" Body mass index (BMI) [Ratio] 24.1 kg/m2 24.1 k g/m2 [facility] ([facility]) Body mass index (BMI) [Ratio] 24.8 kg/m2 24.8 k g/m2 [facility] ([facility]) Wisdom body weight 166 [lb_av] 166 [lb_av] MEDEN T ([facility]) Body weight 79.380 kg 79.380 kg [facility] ([facility]) Body surface area Derived from formula 1.98 m2 1.98 m2 [facility] ([facility]) Body height 70.5 [in_i] 70.5 [in_i] MED[facility] ([facility]) 5'10.50" Body weight 175.00 [lb_av] 175.00 [lb_av] MEDEN T ([facility]) Body weight 172 [lb_av] 172 [lb_av] eCW1 ([facility]) Body height 69 [in_i] 69 [in_i] eCW1 ([facility]) Body mass index (BMI) [Ratio] 25.40 kg/m2 25.40 kg/m2 eCW1 ([facility]) Heart rate 82 /min 82 /min eCW1 ([facility]) Respiratory rate 18 /min 18 /min eCW1 ([facility]) Systolic blood pressure 156 mm[Hg] 156 mm[Hg] e CW1 ([facility]) Diastolic blood pressure 84 mm[Hg] 84 mm[Hg] eCW1 ([facility]) Body temperature 98 [degF] 98 [degF] eCW1 ([facility]) Systolic blood pressure 111 mm[Hg] 111 mm[Hg] e CW1 ([facility]) Diastolic blood pressure 72 mm[Hg] 72 mm[Hg] eCW1 ([facility]) Body weight 172.4 [lb_av] 172.4 [lb_av] eCW1 ([facility]) Body height 69 [in_i] 69 [in_i] eCW1 ([facility]) Body mass index (BMI) [Ratio] 25.46 kg/m2 25.46 kg/m2 eCW1 ([facility]) Heart rate 94 /min 94 /min eCW1 ([facility]) Respiratory rate 18 /min 18 /min eCW1 ([facility]) Body height 70.5 [in_i] 70.5 [in_i] eCW1 ([facility]) Body height 179.07 cm 179.07 cm W1 ([facility]) Body weight 170 [lb_av] 170 [lb_av] eCW1 ([facility]) Body weight 77.11 kg 77.11 kg eCW1 ([facility]) Body mass index (BMI) [Ratio] 24.05 kg/m2 24.05 kg/m2 eCW1 ([facility]) Body temperature 98.5 [degF] 98.5 [degF] eCW1 ( [facility]) Systolic blood pressure 148 mm[Hg] 148 mm[Hg] e CW1 ([facility]) Body weight 174.8 [lb_av] 174.8 [lb_av] eCW1 ([facility]) Body height 69 [in_i] 69 [in_i] eCW1 ([facility]) Body mass index (BMI) [Ratio] 25.81 kg/m2 25.81 kg/m2 eCW1 ([facility]) Heart rate 95 /min 95 /min eCW1 ([facility]) Respiratory rate 18 /min 18 /min eCW1 ([facility]) Body temperature 97.8 [degF] 97.8 [degF] eCW1 ( [facility]) Diastolic blood pressure 80 mm[Hg] 80 mm[Hg] eCW1 ([facility]) Body weight 173.00 [lb_av] 173.00 [lb_av] MEDEN T ([facility]) Diastolic blood pressure 62 mm[Hg] 62 mm[Hg] [facility] ([facility]) sitting, regular cuff Respiratory rate 16 /min 16 /min [facility] ( [facility]) Systolic blood pressure 122 mm[Hg] 122 mm[Hg] M EDENT ([facility]) sitting, regular cuff Diastolic blood pressure 60 mm[Hg] 60 mm[Hg] [facility] ([facility]) sitting Body height 71 [in_i] 71 [in_i] [facility] ([facility]) 5'11" Body mass index (BMI) [Ratio] 24.1 kg/m2 24.1 k g/m2 [facility] ([facility]) Heart rate 72 /min 72 /min [facility] ([facility]) Regular Systolic blood pressure 122 mm[Hg] 122 mm[Hg] M EDENT ([facility]) sitting Body weight 173.2 [lb_av] 173.2 [lb_av] eCW1 ([facility]) Body mass index (BMI) [Ratio] 25.57 kg/m2 25.57 kg/m2 eCW1 ([facility]) Body height 69 [in_i] 69 [in_i] eCW1 ([facility]) Body weight 170.12 [lb_av] 170.12 [lb_av] eCW1 ([facility]) Body height 69 [in_i] 69 [in_i] eCW1 ([facility]) Body mass index (BMI) [Ratio] 25.12 kg/m2 25.12 kg/m2 eCW1 ([facility]) Heart rate 90 /min 90 /min eCW1 ([facility]) Respiratory rate 19 /min 19 /min eCW1 ([facility]) Body temperature 98 [degF] 98 [degF] eCW1 ([facility]) Systolic blood pressure 130 mm[Hg] 130 mm[Hg] e CW1 ([facility]) Diastolic blood pressure 85 mm[Hg] 85 mm[Hg] eCW1 ([facility]) Patient Treatment Plan of Care Planned Activity Planned Date Details Description Data Source (s) Azelastine HCl 0.1 % 06/08/2020 12:00:00 AM EST eCW1 ([facility]) Fluticasone Propionate 50 MCG/ACT 06/08/2020 12:00:00 AM EST eCW1 ([facility])
[2021-02-23] MEDS ORDERED: LIDOCAINE 2% 100MG/5ML SDV (FOR ANES.) As Ordered ONE (09:56)
[2021-02-23] MEDS ORDERED: propofoL 200 MG/20 ML VIAL As Ordered ONE (09:56)
--- NOTE | 2021-02-23 10:50 | ROOR ---
Patient Name: Reymundo Flowers Procedure Date: 02/23/2021 10:33 AM Date of : 1935 Age: 85 Room: [facility] Gender: Male Note Status: Finalized Procedure: Colonoscopy Indications: Screening for colorectal malignant neoplasm Providers: Nestor Delgado Jr, MD Referring MD: Alfredo Watson Do Requesting Provider: Medicines: Propofol per Anesthesia Complications: No immediate complications. Procedure: Pre-Anesthesia Assessment: - Prior to the procedure, a History and Physical was performed, and patient medications and allergies were reviewed. The patient is competent. The risks and benefits of the procedure and the sedation options and risks were discussed with the patient. All questions were answered and informed consent was obtained. Patient identification and proposed procedure were verified by the physician and the nurse in the pre-procedure area and in the procedure room. Mental Status Examination: alert and oriented. Airway Examination: normal oropharyngeal airway and neck mobility. Respiratory Examination: clear to auscultation. CV Examination: normal. ASA Grade Assessment: II - A patient with mild systemic disease. After reviewing the risks and benefits, the patient was deemed in satisfactory condition to undergo the procedure. The anesthesia plan was to use moderate sedation / analgesia (conscious sedation). Immediately prior to administration of medications, the patient was re-assessed for adequacy to receive sedatives. The heart rate, respiratory rate, oxygen saturations, blood pressure, adequacy of pulmonary ventilation, and response to care were monitored throughout the procedure. The physical status of the patient was re-assessed after the procedure. The Colonoscope was introduced through the anus and advanced to the cecum, identified by appendiceal orifice and ileocecal valve. The colonoscopy was performed without difficulty. The patient tolerated the procedure fairly well. The quality of the bowel preparation was adequate. Findings: The recto-sigmoid colon, descending colon, transverse colon, ascending colon, cecum, appendiceal orifice and ileocecal valve appeared normal. A few small and large-mouthed diverticula were found in the sigmoid colon. A patchy area of mildly erythematous mucosa was found in the rectum. Impression: - The recto-sigmoid colon, descending colon, transverse colon, ascending colon, cecum, appendiceal orifice and ileocecal valve are normal. - Diverticulosis in the sigmoid colon. - Erythematous mucosa in the rectum. - No specimens collected. Recommendation: - Discharge patient to home (ambulatory). - Repeat colonoscopy in 10 years for screening purposes. Procedure Code(s): --- Professional --- 76523, Colonoscopy, flexible; diagnostic, including collection of specimen(s) by brushing or washing, when performed (separate procedure) Diagnosis Code(s): --- Professional --- Z12.11, Encounter for screening for malignant neoplasm of colon K62.89, Other specified diseases of anus and rectum K57.30, Diverticulosis of large intestine without perforation or abscess without bleeding CPT copyright 2019 [employer]. All rights reserved. The codes documented in this report are preliminary and upon principal electrical engineer review may be revised to meet current compliance requirements. Nestor Delgado MD Nestor Delgado Jr, MD 02/23/2021 10:49:30 AM Electronically signed by Nestor Delgado Jr, MD Number of Addenda: 0 Note Initiated On: 02/23/2021 10:33 AM Estimated Blood Loss: Estimated blood loss: none.
[2021-02-23 11:14] VITALS: BP 152/71
== END 2021-02-23 11:14 | disposition home or self-care (01) ==
LOC: M OPP 09:29
PROVIDERS: ATTEND Surgery
DX: Z12.11 Encounter for screening for malignant neoplasm of colon (principal); K57.30 Diverticulosis of large intestine without perforation or abscess without bleeding; K62.89 Other specified diseases of anus and rectum; Z79.82 Long term (current) use of aspirin; Z79.899 Other long term (current) drug therapy; Z85.46 Personal history of malignant neoplasm of prostate; Z95.5 Presence of coronary angioplasty implant and graft; Z90.89 Acquired absence of other organs; Z92.3 Personal history of irradiation

== ENCOUNTER → 2021-04-10 | Outpatient (CLI) | payer MEDICARE, BC ==
[~2021-04-10] MED LIST changes: -NS 1,000 ML IV ONE; +OMEP-221
--- NOTE | 2021-04-13 07:50 | HOLTMON ---
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 PATIENT TOOK A NITRO BUT DIDN'T RECORD ANY SYMPTOMS OTHER THAN BLOOD PRESSURE Heart rate variability was blunted with a range of 58 to 110 bpm. There were occasional PVC's rare PAC's but no significant runs. "Ventricular run" in strips was just sinus tachycardia. No significant ST events or pauses. No atrial fibrillation was seen. There were several diary entries including nausea and arm pain and "took nitro" but no arrhythmias or ST shifts were seen. A couple of these events were not recorded due to artifact likely from lead drops. Electronically Signed on 04-13-2021 7:50:08 EST by Jace Oviedo
== END ==
LOC: M EKG 09:46
PROVIDERS: ATTEND Internal Medicine
DX: R00.2 Palpitations (principal)

== ENCOUNTER 2021-04-12 10:52 | Emergency (ER) | payer MEDICARE, BC ==
[~2021-04-12] VITALS: Ht 180.3 cm; Wt 78.2 kg
[~2021-04-12 10:52] MED LIST changes: -OMEP-221
[2021-04-12] MEDS ORDERED: OMEP-221 (11:07)
[2021-04-12] MEDS ORDERED: LOSA50TA88 PO (11:07)
[2021-04-12 12:17] LABS: BASO % 0.2 % (0.0-1.0); EOS # 0.1 10^3/uL (0.0-0.5); HEMATOCRIT 39.4 % (42.0-52.0); HEMOGLOBIN 13.3 g/dl (13.5-17.5); LYMPH # 0.4 10^3/uL (1.5-5.0); LYMPH % 8.1 % (24.0-44.0); MEAN CORPUSCULAR HEMOGLOBIN 32.8 pg (27.0-33.0); MEAN CORPUSCULAR HGB CONC 33.8 g/dl (32.0-36.5); MONO # 0.5 10^3/uL (0.0-0.8); MONO % 10.2 % (2.0-8.0); NEUTROPHILS # 3.9 10^3/uL (1.5-8.5); NEUTROPHILS % 80.3 % (36.0-66.0); PLATELET COUNT, AUTOMATED 163 10^3/uL (150-450); RED BLOOD COUNT 4.06 10^6/uL (4.30-6.10); WHITE BLOOD COUNT 4.8 10^3/uL (4.0-10.0)
--- NOTE | 2021-04-12 12:32 | REP ---
INDICATION: CHEST PAIN. COMPARISON: 02/03/2020 the latest prior also portable TECHNIQUE: Portable FINDINGS: The technique utilized in obtaining the radiograph has magnified the cardiac silhouette and accentuated the interstitial markings. The cardiomediastinal silhouette is unchanged. The heart is not enlarged. There is no significant change in the appearance of the lung irving, however, the right lower lung field has not been included on either of the 2 frontal views. The osseous structures are stable. IMPRESSION: No evidence of acute disease or significant change compared to the prior exam, however, exam limitations as described above. Consider repeat. <Electronically signed by Jared Oh > 04/12/21 [id number]
[2021-04-12 12:44] LABS: CK-MB VALUE MASS 1.4 NG/ML (<3.6); MB/CK RELATIVE INDEX 2.19 (< OR =4)
[2021-04-12 12:46] LABS: ALBUMIN 3.4 GM/DL (3.2-5.2); BILIRUBIN,DIRECT 0.1 MG/DL (0.0-0.2); BILIRUBIN,TOTAL 0.3 MG/DL (0.2-1.0); CALCIUM LEVEL 9.2 MG/DL (8.8-10.2); CREATININE FOR GFR 1.23 MG/DL (0.70-1.30); GLOMERULAR FILTRATION RATE 59.4 (>35); POTASSIUM SERUM 4.2 MEQ/L (3.5-5.1); TOTAL PROTEIN 6.6 GM/DL (6.4-8.2)
[2021-04-12 17:00] VITALS: BP 145/70
--- NOTE | 2021-04-12 19:42 | ECGEPIP ---
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
--- NOTE | 2021-04-12 19:42 | ECGEPIP ---
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
--- NOTE | 2021-04-12 19:45 | ECGEPIP ---
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
--- NOTE | 2021-04-13 08:49 | ED PDOC ---
Post-Departure Follow-Up dr hi luciano faxed formal report of cxr forfu Amaury Clark MD Apr 13, 2021 08:49
== END 2021-04-12 17:12 | disposition home or self-care (01) ==
LOC: M ED 10:52
DX: R07.9 Chest pain, unspecified (principal); I10 Essential (primary) hypertension; R94.01 Abnormal electroencephalogram [EEG]; E78.5 Hyperlipidemia, unspecified; Z86.79 Personal history of other diseases of the circulatory system; Z95.5 Presence of coronary angioplasty implant and graft; Z79.82 Long term (current) use of aspirin; Z79.899 Other long term (current) drug therapy

== ENCOUNTER → 2021-09-05 | Outpatient (CLI) | payer MEDICARE, BC ==
[~2021-09-05] MED LIST changes: +LOSA50TA28 PO; -LOSA50TA88 PO; +OMEP-173 PO; -OMEP-218 PO; +OMEP40CA5
== END ==
LOC: M SOG 09:10
PROVIDERS: ATTEND Physician Assistant
DX: M19.041 Primary osteoarthritis, right hand (principal)

== ENCOUNTER → 2021-09-14 | Outpatient (REF) | payer MEDICARE, BC ==
[~2021-09-14] MED LIST changes: +IPRA6SP; -OMEP40CA5; +OMEP40CA5 PO
[2021-09-14 13:08] LABS: PERCENT SATURATION 29.1 % (19.7-50.0)
== END ==
LOC: M LAB REF 12:04
PROVIDERS: ATTEND Internal Medicine
DX: N18.31 Chronic kidney disease, stage 3a (principal); D50.9 Iron deficiency anemia, unspecified

== ENCOUNTER 2021-09-18 07:03 | Day surgery (SDC) | payer MEDICARE, BC ==
[~2021-09-18] VITALS: Ht 180.3 cm; Wt 78.0 kg
[~2021-09-18 07:03] MED LIST changes: +LIDOCAINE W/EPINEPHRINE 1% 20ML VIAL ID ONE; +SODIUM BICARBONATE 8.4% INJ 50MEQ 50 ML VIAL ID ONE
[2021-09-18] MEDS ORDERED: BACITRACIN OINTMENT 30GM TUBE As Ordered ONE (08:29)
[2021-09-18 09:05] VITALS: BP 153/83
== END 2021-09-18 09:16 | disposition home or self-care (01) ==
LOC: M SDC 07:03
PROVIDERS: ATTEND Orthopaedic Surgery Hand Surgery
DX: M65.341 Trigger finger, right ring finger (principal); I10 Essential (primary) hypertension; K21.9 Gastro-esophageal reflux disease without esophagitis; E78.5 Hyperlipidemia, unspecified; E03.9 Hypothyroidism, unspecified; Z85.46 Personal history of malignant neoplasm of prostate; Z92.3 Personal history of irradiation; Z79.899 Other long term (current) drug therapy; Z79.82 Long term (current) use of aspirin

== ENCOUNTER → 2022-04-19 | Outpatient (CLI) | payer MEDICARE, BC ==
[~2022-04-19] MED LIST changes: -LIDOCAINE W/EPINEPHRINE 1% 20ML VIAL ID ONE; -SODIUM BICARBONATE 8.4% INJ 50MEQ 50 ML VIAL ID ONE
== END ==
LOC: M RAD 11:22
PROVIDERS: ATTEND Internal Medicine
DX: M54.2 Cervicalgia (principal); R51.9 Headache, unspecified

== ENCOUNTER → 2022-04-23 | Outpatient (CLI) | payer MEDICARE, BC | LOC: M PLALAB 11:09 | PROVIDERS: ATTEND Urology | DX: C61 Malignant neoplasm of prostate (principal) ==

== ENCOUNTER → 2022-10-22 | Outpatient (CLI) | payer MEDICARE, BC ==
[~2022-10-22] MED LIST changes: -COZA50TA PO; +LOSA-528 PO
== END ==
LOC: M PLALAB 10-19 11:48
PROVIDERS: ATTEND Urology
DX: C61 Malignant neoplasm of prostate (principal)

== ENCOUNTER → 2023-04-16 | Outpatient (CLI) | payer MEDICARE, BC | LOC: M PLALAB 11:01 | PROVIDERS: ATTEND Urology | DX: C61 Malignant neoplasm of prostate (principal) ==

== ENCOUNTER → 2023-04-26 | Outpatient (CLI) | payer MEDICARE, BC ==
[2023-04-26 13:45] LABS: HEMATOCRIT 44.4 % (42.0-52.0); HEMOGLOBIN 14.8 g/dl (13.5-17.5); MEAN CORPUSCULAR HEMOGLOBIN 33.4 pg (27.0-33.0); MEAN CORPUSCULAR HGB CONC 33.3 g/dl (32.0-36.5); MEAN CORPUSCULAR VOLUME 100.2 fl (80.0-96.0); PLATELET COUNT, AUTOMATED 161 10^3/uL (150-450); RED BLOOD COUNT 4.43 10^6/uL (4.30-6.10); WHITE BLOOD COUNT 4.9 10^3/uL (4.0-10.0)
[2023-04-26 13:57] LABS: ALBUMIN 3.8 G/DL (3.2-5.2); BILIRUBIN,TOTAL 0.7 MG/DL (0.3-1.2); CALCIUM LEVEL 9.5 MG/DL (8.3-10.6); CHOLESTEROL RISK RATIO 2.8 (<5); CREATININE FOR GFR 1.23 MG/DL (0.70-1.30); GLOMERULAR FILTRATION RATE 59.1 (>35); HDL CHOLESTEROL 50.7 MG/DL (>40); LDL CHOLESTEROL 75.1 MG/DL (<100); NON-HDL-C 91.3 MG/DL; POTASSIUM SERUM 4.6 MMOL/L (3.5-5.1); TOTAL PROTEIN 6.8 G/DL (5.7-8.2)
== END ==
LOC: M PLALAB 09:08
PROVIDERS: ATTEND Physician Assistant
DX: I25.10 Atherosclerotic heart disease of native coronary artery without angina pectoris (principal); I10 Essential (primary) hypertension; E78.00 Pure hypercholesterolemia, unspecified

== ENCOUNTER 2023-07-21 20:00 | Emergency (ER) | payer MEDICARE, BC ==
[~2023-07-21] VITALS: Ht 177.8 cm; Wt 78.5 kg
[2023-07-21 20:01] VITALS: TEMP 98.2
[2023-07-21 20:51] LABS: BASO % 0.7 % (0.0-1.0); EOS # 0.1 10^3/uL (0.0-0.5); EOS % 1.5 % (0.0-3.0); HEMATOCRIT 43.6 % (42.0-52.0); HEMOGLOBIN 15.1 g/dl (13.5-17.5); LYMPH % 16.5 % (24.0-44.0); MEAN CORPUSCULAR HGB CONC 34.6 g/dl (32.0-36.5); MEAN CORPUSCULAR VOLUME 98.2 fl (80.0-96.0); MONO # 0.8 10^3/uL (0.0-0.8); MONO % 13.2 % (2.0-8.0); NEUTROPHILS # 3.9 10^3/uL (1.5-8.5); NEUTROPHILS % 67.8 % (36.0-66.0); PLATELET COUNT, AUTOMATED 171 10^3/uL (150-450); RED BLOOD COUNT 4.44 10^6/uL (4.30-6.10); WHITE BLOOD COUNT 5.8 10^3/uL (4.0-10.0)
[2023-07-21 21:03] LABS: INR 1.03; PROTHROMBIN TIME 13.2 SECONDS (12.5-14.5)
[2023-07-21 21:11] LABS: LIPASE 39 U/L (12-53)
[2023-07-21 21:12] LABS: CK-MB VALUE MASS 1.3 NG/ML (<3.6)
[2023-07-21 21:14] LABS: ALBUMIN 4.2 G/DL (3.2-5.2); ALKALINE PHOSPHATASE 85 U/L (46-116); ALT/SGPT 19 U/L (7.0-40); AST/SGOT 21 U/L (<34); BILIRUBIN,DIRECT 0.2 MG/DL (<0.4); BILIRUBIN,TOTAL 0.6 MG/DL (0.3-1.2); BLOOD UREA NITROGEN 16 MG/DL (9-23); CALCIUM LEVEL 9.7 MG/DL (8.3-10.6); CARBON DIOXIDE LEVEL 32 MMOL/L (20-31); CHLORIDE LEVEL 103 MMOL/L (98-107); GLOMERULAR FILTRATION RATE > 60.0 (>35); GLUCOSE, FASTING 114 MG/DL (74-106); POTASSIUM SERUM 4.4 MMOL/L (3.5-5.1); SODIUM LEVEL 139 MMOL/L (136-145); TOTAL PROTEIN 7.3 G/DL (5.7-8.2)
[2023-07-21 21:15] LABS: CPK CREATINE PHOSPHOKINASE 104 U/L (46-171); MB/CK RELATIVE INDEX 1.25 (< OR =4)
[2023-07-21 22:15] VITALS: BP 160/77; O2SAT 97
[2023-07-21 22:18] LABS: CK-MB VALUE MASS 1.1 NG/ML (<3.6)
[2023-07-21 22:20] LABS: MB/CK RELATIVE INDEX 1.25 (< OR =4)
== END 2023-07-21 22:52 | disposition home or self-care (01) ==
LOC: M ED 20:00
DX: R07.9 Chest pain, unspecified (principal); R00.2 Palpitations; I10 Essential (primary) hypertension; I45.10 Unspecified right bundle-branch block; I25.2 Old myocardial infarction; K21.9 Gastro-esophageal reflux disease without esophagitis; E78.5 Hyperlipidemia, unspecified; N40.0 Benign prostatic hyperplasia without lower urinary tract symptoms; E03.9 Hypothyroidism, unspecified; Z86.79 Personal history of other diseases of the circulatory system; Z79.82 Long term (current) use of aspirin; Z79.02 Long term (current) use of antithrombotics/antiplatelets; Z79.811 Long term (current) use of aromatase inhibitors; Z79.83 Long term (current) use of bisphosphonates; Z79.899 Other long term (current) drug therapy

== ENCOUNTER → 2024-04-20 | Outpatient (CLI) | payer MEDICARE, BC | LOC: M PLALAB 10:44 | PROVIDERS: ATTEND Urology | DX: C61 Malignant neoplasm of prostate (principal) ==

== ENCOUNTER → 2024-05-14 | Outpatient (CLI) | payer MEDICARE, BC ==
[2024-05-14 12:47] LABS: BLOOD UREA NITROGEN 15 MG/DL (9-23); GLOMERULAR FILTRATION RATE > 60.0 (>35)
== END ==
LOC: M LAB 11:41
PROVIDERS: ATTEND Otolaryngology
DX: H92.02 Otalgia, left ear (principal)

== ENCOUNTER → 2024-05-18 | Outpatient (CLI) | payer MEDICARE, BC | LOC: M RAD 14:52 | PROVIDERS: ATTEND Otolaryngology | DX: H92.02 Otalgia, left ear (principal) ==